=== PATIENT | male | born 1940 | race Caucasian/White ===

== ENCOUNTER 2025-02-01 23:12 | Inpatient (IN) | payer OTHER, SELFPAY ==
[2025-02-01] VITALS (23 sets, daily range): BP systolic 134–203; BP diastolic 63–105; BMI 25.3
[2025-02-01 17:50] LABS: % Basophils 0.2 % (0-2); % Eosinophils 1.9 % (0-6); % Immature Granulocytes 0.4 % (0-0.5); % Lymphocytes 23.1 % (20.5-51.1); % Monocytes 10.8 % (1.7-9.3); % Neutrophils 63.6 % (42.2-75.2); Absolute Eosinophils 0.1 10^3/uL (0-0.7); Absolute Lymphocytes 1.1 10^3/uL (1.2-3.4); Absolute Monocytes 0.5 10^3/uL (0.1-0.6); Hematocrit 39.4 % (39.0-52.0); Hemoglobin 13.3 g/dL (13.0-18.0); Mean Corp Hgb Conc. 33.8 g/dL (33.0-37.0); Mean Corpuscular Volume 94.7 fL (80.0-94.0); Mean Platelet Volume 9.4 fL (7.4-10.4); Nucleated Red Blood Cells % 0 % (-); Platelet Count 150 10^3/uL (130-400); Red Blood Cell Count 4.16 10^6/uL (4.70-6.10); Red Cell Dist. Width 12.8 % (11.5-14.5); White Blood Cell Count 4.6 10^3/uL (4.8-10.8)
[2025-02-01 18:03] LABS: ALT (SGPT) 12 U/L (0-50); AST (SGOT) 22 U/L (17-59); Albumin 3.6 g/dl (3.5-5.0); Alkaline Phosphatase 74 U/L (38-126); Blood Urea Nitrogen 28 mg/dl (9-20); Calcium 8.7 mg/dl (8.4-10.2); Carbon Dioxide 27 mmol/L (22-30); Chloride 107 mmol/L (98-107); Estimated Creatinine Clearance 63 ml/min; Glucose 98 mg/dl (70-99); Potassium 4.4 mmol/L (3.5-5.1); Sodium 141 mmol/L (135-145); Total Bilirubin 0.5 mg/dl (0.2-1.3); Total Protein 5.7 g/dl (6.3-8.2); eGFR > 60.00
--- NOTE | 2025-02-01 19:36 | ED.GENMED ---
History of Present Illness
<Marcela Quintero PA-C - Last Filed: 02/01/25 23:58>
General
Chief Complaint: Musculo-Skeletal Complaint
Source: patient
Exam Limitations: none
Time Seen by Provider: 02/01/25 18:52
Nursing documentation reviewed up to this point in time: agreed with
History of Present Illness
History of Present Illness:
Patient is an 84-year-old male with history hypertension, hyperlipidemia, frontotemporal dementia presenting to the emergency department via EMS for mechanical fall earlier today. History somewhat limited due to patient's history of dementia. He
states that he tripped on something in the kitchen, possibly a rug falling forward landing on the left side. He denies any head strike or loss of continence. He complains of significant pain in his left ankle with any movement. He arrives with
obvious deformity of left ankle and splint in place by EMS.
Patient denies any numbness/tingling in left lower extremity. He denies any neck or back pain. Patient denies any chest pain, shortness of breath, or abdominal pain. This fall was unwitnessed by family as his was in the other room.
Patient's does report that he sustained a fall a few days ago on the bathroom as well. It is not known if he struck his head at that time. She reports that he does have a bruise on his back.
states that patient is intermittently incontinent to urine at his baseline.
Past History
<Marcela Quintero PA-C - Last Filed: 02/01/25 23:58>
Past History
ED Past Medical History: None
ED Past Surgical History: None
Social History
Tobacco: Non-smoker
Alcohol: None
Drug: None
Personal:
Living: with family
Review of Systems
<Marcela Quintero PA-C - Last Filed: 02/01/25 23:58>
Review of Systems
Allergies reviewed?: Yes
All Other Systems: ROS reviewed and negative except as documented in HPI and ROS
Phy Exam
<Marcela Quintero PA-C - Last Filed: 02/01/25 23:58>
Physical Exam
Physical Exam:
Vitals: Hypertensive, otherwise vital signs are stable. Afebrile
General: Patient is in no apparent distress.
Skin: Warm and dry, no rashes or lesions. Healing ecchymoses to left sacral region
Head: Normocephalic, atraumatic
Eyes: Sclera nonicteric. EOMs intact. No nystagmus.
Throat: Protecting airway
Neck: Normal ROM, no cervical spine tenderness, no meningismus
Cardiac: Regular rate and rhythm, no murmurs.
Pulm: No apparent respiratory distress. Lungs clear bilaterally
Abdomen: Abdomen soft and nontender.
Extremities: Obvious lateral rotation and deformity of left ankle. Ankle very unstable. Diffuse tenderness and swelling of left ankle. Normal capillary refill. Palpable left DP pulse. Patient has no tenderness to left hip with out any pain with
left hip range of motion including internal/external rotation. Right lower extremity and bilateral upper extremities atraumatic and nontender with full range of motion.
Neuro: AAOx2 to person and place, not time. No focal deficits.
Psychiatric: Normal affect.
Course
<Marcela Quintero PA-C - Last Filed: 02/01/25 23:58>
Orders/Labs/Results
Orders:
Orders
02/01/25 17:44
Complete Blood Count/With Diff Urgent
Comprehensive Metabolic Panel Urgent
02/01/25 19:34
Cervical Spine wo Contrast CT [CT Cervical Spine W/o Iv Contr] Urgent
Comment:
Reason For Exam: unwitnessed fall
Ankle, left 3 view CR [CR Ankle - Left Min 3 Views ] Urgent
Comment:
Reason For Exam: fall, ankle deformity
02/01/25 19:35
CT Head W/o Iv Contrast Urgent
Comment:
Reason For Exam: unwitnessed fall
Acetaminophen [Tylenol] 650 mg PO NOW STA
02/01/25 20:14
Propofol [Diprivan] 20 ml .ROUTE .STK-MED
02/01/25 20:19
CR Ankle - Left Min 3 Views Urgent
Comment:
Reason For Exam: post reduction
02/01/25 20:29
Propofol [Diprivan] 20 mg IV NOW STA
02/01/25 22:36
Admit/Transfer Patient As Directed
Co-Sign Provider:
Level of Care: Inpatient admission
Assign to:: Medical/Surgical
Physician / Group: Isaias
Diagnosis: L Ankle Fracture
Reason for Hospitalization: L Ankle Fracture
Expected length of stay greater than two midnights?: Yes
ELOS- Estimated Length of Stay in days: 3
I certify the patient meets the requirements for IP care: Yes
PRN Pain Medication Management As Directed
May give lesser potent ordered pain med per pt: Yes
preference::
Protocol:: Medication orders for pain may be administered in a
manner that supports deferring to patient preference
when the pt is:
- Requesting an ordered lesser potent pain medication.
Least to most potent pain medications are defined
as: acetaminophen < NSAID < tramadol < opioids
(morphine, oxycodone, hydromorphone).
- Requesting a lesser dose of the same medication IF
ORDERED.
- Requesting a less intrusive route of administration
if both routes are prescribed by the provider (PO <
IV).
02/01/25 22:38
Code Status As Directed
Resuscitation Status: Full Code
02/01/25 23:00
Flush (0.9% Sodium Chloride) [Flush (Nss)] See Dose Instructions IV PER PROTOCOL
02/01/25 23:24
Ketorolac [Toradol] 10 mg IV Q6HPRN PRN
Polyethylene Glycol Powder [Miralax] 17 grams PO DAILYPRN PRN
Quetiapine Fumarate [Seroquel] 12.5 mg PO Q6HPRN PRN
02/01/25 23:24
Case Management Consult ONCE
Case Management Consult: Discharge Planning
ORTHOPEDIC CONSULT Routine
Consulting Provider: Frederick Dent
Was physician already notified: Yes
Reason for consult: L Ankle Fracture
Activity As Directed
Activity Level: Bedrest
Bladder Scan As Directed
Follow Bladder Retention/Intermittent Cath Algorithm?: Yes
PRN if no void in __ hours: 6
Frequency: Per Retention Algorithm
If Bladder Scan Result >: 400
then:: Straight cath
I/O [Intake/ Output] As Directed
Frequency: Per unit guidelines
Pneumatic Compression Sleeves As Directed
Type: Knee high
Precautions As Directed
Type of Precautions: Other
Comment: Fall Precautions
Straight Cath As Directed
Frequency: Per Retention Algorithm
Additional Instructions: straight cath as needed per acute urinary retention algorithm for 24 hrs
Additional Instructions: for bladder scan greater than 400 mL
Vital Signs As Directed
Frequency: Per unit guidelines
Weight Bearing Status As Directed
Weight bearing to: Left lower extremity
Type: Non Wt. bearing
Oxygen Therapy [O2 Therapy] [RESP] Routine
Titrate/Wean O2 to maintain O2 sat greater than (%): 94
Ot Eval And Treat Routine
PT Consult [Pt Eval And Treat] Routine
Activity Level: Ambulate
With Assistance
DX Deep Vein Thrombosis Video Routine
02/02/25 Breakfast
NPO
Allow oral meds: Yes
Allow clear liquids: Sips of Clears
Basic Metabolic Panel IN AM
Complete Blood Count/No Diff IN AM
02/02/25 08:00
Acetaminophen [Tylenol] 1,000 mg PO TID
Lisinopril [Zestril] 10 mg PO DAILY
Sertraline HCl [Zoloft] 50 mg PO DAILY
02/02/25 22:00
Atorvastatin [Lipitor] 20 mg PO HS
Donepezil HCl [Aricept] 10 mg PO HS
Sennosides [Senokot] 17.2 mg PO HS
Abnormal Lab Results
02/01/25
17:44
WBC 4.6 L 10^3/uL
(4.8-10.8)
RBC 4.16 L 10^6/uL
(4.70-6.10)
MCV 94.7 H fL
(80.0-94.0)
MCH 32.0 H pg
(27.0-31.0)
Absolute Lymphs (auto) 1.1 L 10^3/uL
(1.2-3.4)
Monocytes % 10.8 H %
(1.7-9.3)
BUN 28 H mg/dl
(9-20)
Total Protein 5.7 L g/dl
(6.3-8.2)
02/01/25 17:44
02/01/25 17:44
Vital Signs
Initial and Last Documented VS:
Initial Vital Signs
Temp Pulse Resp BP Pulse Ox
98.4 F 67 20 164/72 97
02/01/25 17:37 02/01/25 17:37 02/01/25 17:37 02/01/25 17:37 02/01/25 17:37
Last Documented Vital Signs
Temp Pulse Resp BP Pulse Ox
98.0 F 76 20 159/83 98
02/01/25 20:48 02/01/25 20:48 02/01/25 20:48 02/01/25 20:48 02/01/25 20:48
<Mesfin Nichols Kalyan, DO - Last Filed: 02/01/25 20:40>
Orders/Labs/Results
Orders:
Orders
02/01/25 17:44
Complete Blood Count/With Diff Urgent
Comprehensive Metabolic Panel Urgent
02/01/25 19:34
Cervical Spine wo Contrast CT [CT Cervical Spine W/o Iv Contr] Urgent
Comment:
Reason For Exam: unwitnessed fall
Ankle, left 3 view CR [CR Ankle - Left Min 3 Views ] Urgent
Comment:
Reason For Exam: fall, ankle deformity
02/01/25 19:35
CT Head W/o Iv Contrast Urgent
Comment:
Reason For Exam: unwitnessed fall
Acetaminophen [Tylenol] 650 mg PO NOW STA
02/01/25 20:14
Propofol [Diprivan] 20 ml .ROUTE .STK-MED
02/01/25 20:19
CR Ankle - Left Min 3 Views Urgent
Comment:
Reason For Exam: post reduction
02/01/25 20:29
Propofol [Diprivan] 20 mg IV NOW STA
02/01/25 22:36
Admit/Transfer Patient As Directed
Co-Sign Provider:
Level of Care: Inpatient admission
Assign to:: Medical/Surgical
Physician / Group: Isaias
Diagnosis: L Ankle Fracture
Reason for Hospitalization: L Ankle Fracture
Expected length of stay greater than two midnights?: Yes
ELOS- Estimated Length of Stay in days: 3
I certify the patient meets the requirements for IP care: Yes
PRN Pain Medication Management As Directed
May give lesser potent ordered pain med per pt: Yes
preference::
Protocol:: Medication orders for pain may be administered in a
manner that supports deferring to patient preference
when the pt is:
- Requesting an ordered lesser potent pain medication.
Least to most potent pain medications are defined
as: acetaminophen < NSAID < tramadol < opioids
(morphine, oxycodone, hydromorphone).
- Requesting a lesser dose of the same medication IF
ORDERED.
- Requesting a less intrusive route of administration
if both routes are prescribed by the provider (PO <
IV).
02/01/25 22:38
Code Status As Directed
Resuscitation Status: Full Code
02/01/25 23:00
Flush (0.9% Sodium Chloride) [Flush (Nss)] See Dose Instructions IV PER PROTOCOL
02/01/25 23:24
Ketorolac [Toradol] 10 mg IV Q6HPRN PRN
Polyethylene Glycol Powder [Miralax] 17 grams PO DAILYPRN PRN
Quetiapine Fumarate [Seroquel] 12.5 mg PO Q6HPRN PRN
02/01/25 23:24
Case Management Consult ONCE
Case Management Consult: Discharge Planning
ORTHOPEDIC CONSULT Routine
Consulting Provider: Frederick Dent
Was physician already notified: Yes
Reason for consult: L Ankle Fracture
Activity As Directed
Activity Level: Bedrest
Bladder Scan As Directed
Follow Bladder Retention/Intermittent Cath Algorithm?: Yes
PRN if no void in __ hours: 6
Frequency: Per Retention Algorithm
If Bladder Scan Result >: 400
then:: Straight cath
I/O [Intake/ Output] As Directed
Frequency: Per unit guidelines
Pneumatic Compression Sleeves As Directed
Type: Knee high
Precautions As Directed
Type of Precautions: Other
Comment: Fall Precautions
Straight Cath As Directed
Frequency: Per Retention Algorithm
Additional Instructions: straight cath as needed per acute urinary retention algorithm for 24 hrs
Additional Instructions: for bladder scan greater than 400 mL
Vital Signs As Directed
Frequency: Per unit guidelines
Weight Bearing Status As Directed
Weight bearing to: Left lower extremity
Type: Non Wt. bearing
Oxygen Therapy [O2 Therapy] [RESP] Routine
Titrate/Wean O2 to maintain O2 sat greater than (%): 94
Ot Eval And Treat Routine
PT Consult [Pt Eval And Treat] Routine
Activity Level: Ambulate
With Assistance
DX Deep Vein Thrombosis Video Routine
02/02/25 Breakfast
NPO
Allow oral meds: Yes
Allow clear liquids: Sips of Clears
Basic Metabolic Panel IN AM
Complete Blood Count/No Diff IN AM
02/02/25 08:00
Acetaminophen [Tylenol] 1,000 mg PO TID
Lisinopril [Zestril] 10 mg PO DAILY
Sertraline HCl [Zoloft] 50 mg PO DAILY
02/02/25 22:00
Atorvastatin [Lipitor] 20 mg PO HS
Donepezil HCl [Aricept] 10 mg PO HS
Sennosides [Senokot] 17.2 mg PO HS
Abnormal Lab Results
02/01/25
17:44
WBC 4.6 L 10^3/uL
(4.8-10.8)
RBC 4.16 L 10^6/uL
(4.70-6.10)
MCV 94.7 H fL
(80.0-94.0)
MCH 32.0 H pg
(27.0-31.0)
Absolute Lymphs (auto) 1.1 L 10^3/uL
(1.2-3.4)
Monocytes % 10.8 H %
(1.7-9.3)
BUN 28 H mg/dl
(9-20)
Total Protein 5.7 L g/dl
(6.3-8.2)
02/01/25 17:44
02/01/25 17:44
Vital Signs
Initial and Last Documented VS:
Initial Vital Signs
Temp Pulse Resp BP Pulse Ox
98.4 F 67 20 164/72 97
02/01/25 17:37 02/01/25 17:37 02/01/25 17:37 02/01/25 17:37 02/01/25 17:37
Last Documented Vital Signs
Temp Pulse Resp BP Pulse Ox
98.0 F 76 20 159/83 98
02/01/25 20:48 02/01/25 20:48 02/01/25 20:48 02/01/25 20:48 02/01/25 20:48
Procedures
<Marcela Quintero PA-C - Last Filed: 02/01/25 23:58>
Joint/Fracture Reduction
Left Ankle:
Indication for procedure:: Ankle fracture and dislocation
Procedure completed by: Marcela Quintero PA-C
Consent form signed: Yes
Joint reduced: with anesthesia sedation
Anesthesia/sedation: Moderate sedation
Injury was: closed
Further treatement: needs further treatment
Post reduction exam: stable
Capillary Refill: normal
Normal distal neurovascular exam?: Yes
<Mesfin Biggs DO - Last Filed: 02/01/25 20:40>
Moderate Sedation
ASA Risk Score: Class III
Chart and allergies reviewed: Yes
Consent for anesthesia obtained: Yes
Time out completed (validating right patient & procedure): Yes
Moderate Sedation Start Time(when first medication is given): 20:22
History of difficult intubation: No
Airway free of obstruction: Yes
Patient has a gag reflex: Yes
Patient is able to open mouth: Yes
Patient has no dentures: Yes
Patient has no loose teeth: Yes
Medication administered by Provider during Moderate Sedation: IV Propofol (mg)
Total dose administered: 20
Time drug administered: 20:22
Moderate Sedation Procedure End Time: 20:33
<Marcela Quintero PA-C - Last Filed: 02/01/25 23:58>
MDM/Problems Addressed
Differential Diagnosis Includes:
Not limited to: Ankle fracture, ankle dislocation, hip fracture fracture, etc.
MDM/Problems Addressed:
84-year-old male with history as documented presenting with left ankle pain and deformity following mechanical fall at home. Unknown head strike or LOC. No thinners. Patient mildly hypertensive on arrival, otherwise stable vital signs. Physical
exam as above. Patient has an obvious deformity of the left ankle with significant tenderness and instability of joint. No evidence of other traumatic injuries. No evidence of head or neck injury. However�given somewhat uncertainty surrounding
fall�will obtain head CT/cervical spine CT. Will check x-ray left ankle and left hip. Labs were sent in triage without any clinically significant abnormalities.
Update: Ankle x-ray reviewed by me which shows bimalleolar fracture and dislocation of left ankle. Written consent obtained by patient's . Left ankle reduction performed under moderate sedation with attending physician. Ankle successfully
reduced in ED and patient placed in sugar-tong/posterior leg splint. Patient tolerated procedure well. Reduction confirmed with postreduction x-ray.
Update: Patient initially declined x-ray of left hip. He is able to fully range left hip and has no bony tenderness. Will hold off on hip x-ray at this time. CT head/cervical spine without acute abnormalities. Patient will require admission to
hospital for PT/case management consult and likely acute rehab placement. Case was discussed with orthopedics who will follow inpatient. This will require operative management. Patient excepted to hospitalist service in stable condition.
Chronic conditions affecting care:
Dementia, hypertension
Acute Exacerbation and/or Progression of Chronic Illness:
Acutely hypertensive
<Marcela Quintero PA-C - Last Filed: 02/01/25 23:58>
*Radiology
Radiology exam reviewed: preliminary read by ED provider (Ankle x-ray reviewed by me-bimalleolar fracture with dislocation) and radiology read reviewed
*Pulse Oximetry
Patient hypoxic: no
*EKG
Interpreted by ED Provider?: NA
*Survey Data Technician Interpretation
Rate: normal
Interpretation: normal
Heart Rate: 64
Rhythm: sinus
*Critical Care Note
Total Time (30-74mins, 75-104mins- exclusive of procedures): Not Applicable
<Macrela Quintero PA-C - Last Filed: 02/01/25 23:58>
Patient Management
Discussion with other providers: Hospitalist and Station Repairer (Case discussed with orthopedics)
Escalation/DeEscalation of care consider admission/obs:
Admit for PT/CM and orthopedic consult
ED Attending Note
<Marcela Quintero PA-C - Last Filed: 02/01/25 23:58>
-
Portions of this chart may have been created with voice recognition software.� Occasional wrong word or��sound alike� substitutions may have occurred due to the inherent limitations of voice recognition software.
<Mesfin Biggs DO - Last Filed: 02/01/25 20:40>
ED Attending Note
Patient seen and examined by attending physician: Yes
I performed the substantive portion of visit, reviewed & personally made and approve the management plan that is documented in note by myself or CINDY.: Yes
ED Attending Note:
I evaluated patient at bedside and assisted with sedation and reduction
Discharge Plan
Departure
Patient Disposition: Admit
Date of Disposition: 02/01/25
Time of Disposition: 22:07
Presentation/result/management discussed w/ accepting MD/DO: Hospitalist
Discharge Problem:
Displaced bimalleolar fracture of left ankle
Interventions
Interventions:
*Risk Screen - Suicide Last Done: 02/01/25 17:37
*General Assessment Last Done: 02/01/25 17:37
*Neglect/Abuse Screening Last Done: 02/01/25 17:37
*ED- Fall Risk Assessment Last Done: 02/01/25 17:37
*ED COVID-19 Vaccine History Last Done: 02/01/25 17:37
ED-Musculoskeletal Assessment Last Done: 02/01/25 17:37
[2025-02-01] MEDS: DIPRIVAN 20 MG IV (20:22)
--- NOTE | 2025-02-01 22:46 | HPS.HSE ---
Family Physician
-
Family Physician: Doc Madera
Chief Complaint
-
Fall at Home, L Ankle Pain
History of Present Illness
Patient is an 84y M with PMH significant for senile dementia who presents to ED for evaluation of recent falls / L ankle pain. History obtained from patient and family at the bedside. Patient is confused as per baseline and has difficulty
recalling details of his recent falls, etc. Patient had a fall at home in the bathroom 2 days ago. Fall was unwitnessed. Patient suffered no obvious injury at that time. Today he had another unwitnessed fall. he states that his 'foot got
caught' though further details are unclear. Patient had pain in the L ankle with evident deformity after the fall. He was brought to the ED for further evaluation and treatment.
X-rays confirmed tri-malleolar fracture of the L ankle. Patient underwent closed reduction and splinting in the ED with good radiographic results.
states that patient has had recent issues with urinary and fecal urgency and frequency.
He does not have a prior history of falling, gait issues.
No other recent focal complaints.
Medical History
Past Medical History
Past Medical History: Reports Other
Additional Past Medical History:
Frontotemporal Dementia
Benign Hypertension
Past Surgical History: Reports None
Social History
Tobacco: Non-smoker
Alcohol: Occasional
Drug: None
Personal:
Living: With Family
Family History
Family History: Not pertinent
Allergies / Home Medications
Allergies reflects when Allergies were last updated in [facility].
Home Medications with original date entered in [facility]
Allergy/Medication List:
Allergies
Allergy/AdvReac Type Severity Reaction Status Date / Time
No Known Allergies Allergy Verified 03/12/17 10:20
Home Medications
donepezil 10 mg tablet 10 mg PO HS 02/01/25
lisinopril 10 mg tablet 10 mg PO DAILY 02/01/25
sertraline 50 mg tablet 50 mg PO DAILY 02/01/25
simvastatin 40 mg tablet 40 mg PO HS 02/01/25
Review of Systems
-
History Source: Patient and Family
A 12 point ROS was completed and negative except as noted: Yes
Constitutional: Reports Fatigue; Denies Fever or Chills
Respiratory: Denies Cough or Trouble Breathing
Cardiac: Denies Chest Pain or Palpitations
Abdomen/GI: Reports Other (Fecal urgency); Denies Abdominal Pain, Nausea, Vomiting or Diarrhea
: Reports Frequency and Urgency; Denies Dysuria
Musculoskeletal: Reports Joint Pain
Neurological: Denies Headache
Psych: Reports Dementia
Physical Exam
Vital Signs
Vital Signs
Temp Pulse Resp BP Pulse Ox
98.0 F 76 20 159/83 98
02/01/25 20:48 02/01/25 20:48 02/01/25 20:48 02/01/25 20:48 02/01/25 20:48
Physical Exam
General: Other (84y M in no acute distress. )
HEENT: Moist mucous membranes and PERRLA
Respiratory: Clear; No Wheezes, Rales or Rhonchi
Cardiac: S1/S2 and Regular Rhythm; No Murmur
GI: Soft, Non Tender, Non Distended and Normal Bowel Sounds
Genito-urinary: No costovertebral tender
Musculoskeletal: No Clubbing, No Cyanosis and Other (L lower extremity in splint / GUIDO wrap.)
Neuro: Awake and Alert; No Oriented
Laboratory Results
-
02/01/25 17:44
02/01/25 17:44
Laboratory Results
Total Bilirubin 0.5 mg/dl (0.2-1.3) 02/01/25 17:44
AST 22 U/L (17-59) 02/01/25 17:44
ALT 12 U/L (0-50) 02/01/25 17:44
Alkaline Phosphatase 74 U/L (38-126) 02/01/25 17:44
Impression/Plan
-
A/P: Patient is an 84y M with PMH significant for dementia who presents to ED for evaluation of recent falls at home and L ankle pain.
Left Ankle Fracture
- Admit for further evaluation and treatment.
- Reduced and splinted in the ED.
- Supportive care, pain control, NWB, etc.
- Ortho evaluation for additional recommendations.
- Strict fall precautions in this 84y M with dementia to avoid weight bearing, getting OOB, etc unassisted.
Fall at Home
- Unclear etiology of falls.
- Potentially represents progression of dementia; however, family does not recent urinary symptoms.
- Check UA for evidence of infection.
- Hold abx pending these results.
- PT / OT evaluations.
- Follow for any new / worsening symptoms.
Benign Hypertension
- Stable. Continue usual lisinopril.
Frontotemporal Dementia
- Patient with memory impairment at baseline. Mildly anxious / agitated in the ED.
- Concern for mobility / weight bearing due to disorientation as noted above - strict fall precautions.
- Continue usual Aricept, sertraline, etc.
- Seroquel PRN for agitation.
DVT Prophylaxis: SCDs
Code Status: Full
[2025-02-02] VITALS (17 sets, daily range): BP systolic 114–145; BP diastolic 0–95
[2025-02-02] MEDS: ARICEPT 10 MG PO ×2 (01:25→21:03)
[2025-02-02] MEDS: SENOKOT 17.2 MG PO ×2 (01:25→21:03)
[2025-02-02] MEDS: LIPITOR 20 MG PO ×2 (01:25→21:03)
[2025-02-02] MEDS: TYLENOL 1000 MG PO ×3 (01:26→21:05)
[2025-02-02 06:22] LABS: Hematocrit 40.3 % (39.0-52.0); Hemoglobin 13.7 g/dL (13.0-18.0); Mean Corpuscular Hgb 31.9 pg (27.0-31.0); Mean Corpuscular Volume 93.7 fL (80.0-94.0); Mean Platelet Volume 9.3 fL (7.4-10.4); Platelet Count 151 10^3/uL (130-400); Red Cell Dist. Width 12.9 % (11.5-14.5); White Blood Cell Count 5.3 10^3/uL (4.8-10.8)
[2025-02-02 06:43] LABS: Blood Urea Nitrogen 23 mg/dl (9-20); Calcium 8.6 mg/dl (8.4-10.2); Carbon Dioxide 27 mmol/L (22-30); Chloride 109 mmol/L (98-107); Estimated Creatinine Clearance 70 ml/min; Glucose 96 mg/dl (70-99); Potassium 3.8 mmol/L (3.5-5.1); Sodium 140 mmol/L (135-145); eGFR > 60.00
[2025-02-02] MEDS: ZESTRIL 10 MG PO (07:55)
[2025-02-02] MEDS: ZOLOFT 50 MG PO (07:57)
--- NOTE | 2025-02-02 08:40 | CON.ORTHO ---
Consultation
-
Date/Time Consultation Requested: 02/01/2025; time unknown
Date/Time Consultation Performed: 02/02/2025; 0700
Requesting Provider: unknown
Performing Provider: Rosa Isela Saldivar PA-C
Reason for Consultation: Left ankle fracture dislocation
Consultation - Orthopedics
History
Mr. Painter is an 84y M with PMH significant for senile dementia seen today for his left ankle. History was obtained from his and son who are at the bedside. They report he has taken several falls recently, but fell again last night. They
noticed a deformity about his ankle which prompted them to be seen at ED. X-rays in the ED revealed a fracture dislocation of his left ankle. This was successfully reduced in the ED, and he was placed in a splint. He is resting comfortably in bed
this morning and denies any pain at present.
He lives at home with his , and typically ambulates with the assistance of a cane. He has not undergone orthopedic surgery in the past. He has no known history of difficulty with anesthesia. They deny PMH of DVT, CVA, KS or DM.
Allergies / Home Medications
Allergy/AdvReac Type Severity Reaction Status Date / Time
No Known Allergies Allergy Verified 03/12/17 10:20
�Medication �Instructions �Recorded
donepezil 10 mg tablet 10 mg PO HS 02/01/25
lisinopril 10 mg tablet 10 mg PO DAILY 02/01/25
sertraline 50 mg tablet 50 mg PO DAILY 02/01/25
simvastatin 40 mg tablet 40 mg PO HS 02/01/25
vitamin B complex 1 tab PO DAILY 02/02/25
Vital Signs / Lab Results
Temp Pulse Resp BP Pulse Ox
98.0 F 70 36 138/77 97
02/01/25 20:48 02/02/25 07:55 02/02/25 00:27 02/02/25 07:55 02/02/25 01:50
02/02/25 06:05
02/02/25 06:05
Pre-reduction XR Left Ankle IMPRESSION:
1. Acute lateral dislocation of the talus.
2. Acute displaced fracture of the medial malleolus.
3. Acute displaced fracture of the distal fibula.
4. Severe peripheral arterial calcific atherosclerotic disease.
Post-reduction XR Left Ankle IMPRESSION:
Closed reduction of the previously visualized acute left ankle fracture-dislocation.
Directed exam of the left lower extremity reveals splint in place. Good color and warmth of toes. Patient able to wiggle toes. Sensation intact to light touch above and below splint.
Assessment / Plan
Left bimalleolar ankle fracture dislocation s/p closed reduction
--Unfortunately, Stalin sustained a bimalleolar ankle fracture in his fall. Thankfully, the dislocation was successfully reduced in the emergency department. Given the unstable nature of this injury, I recommend proceeding with open reduction
internal fixation of his ankle. The risks, benefits, alternatives, recovery process and potential complications were discussed in detail. All questions were answered. Patient and his family would like to proceed with surgical intervention of his
fracture. Surgical and blood consents are signed and scanned into patient chart. Paper copy at OR desk. Plan for OR today under the direction of Dr. Leggett and Dr. Durbin.
--Maintain splint until surgery. NWB to LLE until surgery.
--NPO until surgery.
--Pain control prn.
--Orthopedics/podiatry will continue to follow along.
--- NOTE | 2025-02-02 08:57 | W.PN.HOSP.TC ---
Today's Communication/Plan
-
NPO for OR
IV fluids at the maintenance rate.
Assessment / Plan
Assessment / Plan
Impression
Left ankle fracture secondary to mechanical fall
Other conditions
Advanced frontotemporal dementia.
Benign hypertension
Plan
Status post mechanical fall with acute dislocated fracture of the medial malleolus and acute lateral dislocation of the talus
Status post successful reduction of dislocation in ED.
Given instability of fracture patient will required ORIF.
Orthopedic input appreciated.
Patient with no prior history of cardiovascular disorders.
No uncontrolled hypertension.
Additional workup relevant for normal electrolytes and renal function.
No history of FTD. CT scan with no acute findings evident for multiple chronic lacunar infarcts.
Pending ECG, patient has no prohibitive risk factors to proceed for surgical intervention. No additional preoperative test required.
Plan for postoperative care including DVT prophylaxis, physical therapy evaluation and possible placement to senior care facility
Fall at Home
- Unclear etiology of falls.
- Potentially represents progression of dementia; however, family does not recent urinary symptoms.
- Check UA for evidence of infection.
- Hold abx pending these results.
- PT / OT evaluations.
- Follow for any new / worsening symptoms.
Benign Hypertension
- Stable. Continue usual lisinopril.
Frontotemporal Dementia
- Patient with memory impairment at baseline. Mildly anxious / agitated in the ED.
- Concern for mobility / weight bearing due to disorientation as noted above - strict fall precautions.
- Continue usual Aricept, sertraline, etc.
- Seroquel PRN for agitation.
DVT Prophylaxis: SCDs
Anticipated Discharge: 24 - 48 hours
Subjective/Interval History
-
Date of Service: February 02, 2025
Objective Data
-
Labs:
Laboratory Results
02/02/25
06:05
WBC 5.3
Hgb 13.7
Hct 40.3
Plt Count 151
Sodium 140
Potassium 3.8
Chloride 109 H
Carbon Dioxide 27
BUN 23 H
Creatinine 0.9
Glucose 96
Calcium 8.6
Vital Signs:
Vital Signs
Temp Pulse Resp BP Pulse Ox
98.0 F 70 36 138/77 97
02/01/25 20:48 02/02/25 07:55 02/02/25 00:27 02/02/25 07:55 02/02/25 01:50
I&O
02/01/25 02/02/25 02/03/25
06:59 06:59 06:59
Output Total 300 / 300
Balance -300 / -300
Physical Exam
-
General: Well Developed and No Apparent Distress
HEENT: Normocephalic, Atraumatic and Moist Mucous Membranes
Respiratory: Clear to Auscultation
Cardiac: Regular Rhythm and S1/S2; Negative Murmur, Rub or Gallop
GI: Soft, Nontender, Nondistended and Normal Bowel Sounds; Negative Organomegaly
Rectal: Deferred by Provider
Musculoskeletal: No Clubbing, No Cyanosis and No Edema
Skin: Negative Rash
Neuro: Awake, Alert, Oriented (to name only) and Nonfocal/Grossly Intact
[2025-02-02] MEDS: 0.45%NACL 1000 IV (09:50)
--- NOTE | 2025-02-02 10:44 | CM ---
Met with patient's and grandson at bedside in the ED
Pharmacy: [facility] @ [address] [place] [address]
Patient lives in a multilevel home with his /primary caregiver; 1 step to enter; chair lift to 2nd floor bedroom and bath
PLOF: reported that patient is confused at baseline; ambulated with a cane; needed assistance w/ personal care; was able to toilet self
NO history of SNF or Home Health utilization
is agreeable with going to SNF; list of facilities provided; she and grandson will investigate and identify site preferences tomorrow
Patient is going to OR for procedure today' anticipate that patient will need SNF when stable
Plan: discharge to SNF pending bed availability and Authorization approval; CM will follow up with tomorrow to obtain site preferences and submit referral
--- NOTE | 2025-02-02 13:09 | PTCARENOTE ---
pt brought to OR
--- NOTE | 2025-02-02 17:10 | W.PN.SURGUPD ---
Surgical Update
Surgical Update
84 yo M s/p L ankle ORIF
-Posterior splint to remain C/D/I
-Strict NWB to LLE
-PT/OT, possible need for DC to SNF
-Ancef for 24 hours
--- NOTE | 2025-02-02 18:05 | PTCARENOTE ---
pt transferred from pacu awake and alert oriented x2. lungs diminished B/L on RA. abd soft NT. soft cast LLE, NWB. brisk cap refill b/l. skin otherwise intact. CB in reach- pt instructed to use.
[2025-02-02] MEDS: TYLENOL PO (18:07)
[2025-02-02] MEDS: ANCEF 10 IV (20:55)
[2025-02-03] MEDS: ANCEF 10 IV ×2 (05:27→13:10)
[2025-02-03 07:25] LABS: % Basophils 0.2 % (0-2); % Immature Granulocytes 0.2 % (0-0.5); % Monocytes 14.2 % (1.7-9.3); % Neutrophils 71.4 % (42.2-75.2); Absolute Eosinophils 0.1 10^3/uL (0-0.7); Absolute Lymphocytes 0.8 10^3/uL (1.2-3.4); Absolute Monocytes 0.8 10^3/uL (0.1-0.6); Absolute Neutrophils 4.2 10^3/uL (1.4-6.5); Hematocrit 35.8 % (39.0-52.0); Hemoglobin 11.9 g/dL (13.0-18.0); Mean Corp Hgb Conc. 33.2 g/dL (33.0-37.0); Mean Corpuscular Hgb 31.9 pg (27.0-31.0); Nucleated Red Blood Cells % 0 % (-); Platelet Count 154 10^3/uL (130-400); Red Blood Cell Count 3.73 10^6/uL (4.70-6.10); Red Cell Dist. Width 13.2 % (11.5-14.5); White Blood Cell Count 5.9 10^3/uL (4.8-10.8)
[2025-02-03 07:27] VITALS: BP 125/62
[2025-02-03 07:57] LABS: Blood Urea Nitrogen 21 mg/dl (9-20); Calcium 7.6 mg/dl (8.4-10.2); Carbon Dioxide 29 mmol/L (22-30); Chloride 107 mmol/L (98-107); Estimated Creatinine Clearance 63 ml/min; Glucose 98 mg/dl (70-99); Potassium 3.9 mmol/L (3.5-5.1); Sodium 139 mmol/L (135-145); eGFR > 60.00
[2025-02-03] MEDS: ZESTRIL 10 MG PO (08:07)
[2025-02-03] MEDS: TYLENOL 1000 MG PO ×3 (08:07→21:04)
[2025-02-03] MEDS: ZOLOFT 50 MG PO (08:07)
[2025-02-03 10:39] VITALS: BP 126/57; PULSE 84; O2SAT 95
[2025-02-03 10:58] VITALS: BP 126/57; PULSE 82; O2SAT 94
--- NOTE | 2025-02-03 11:26 | CM ---
Reviewed the chart notes and spoke with the patient and his spouse at the bedside. Patient's spouse provided names for SNFs for short term. Referrals with [facility] sent via [facility]. CM continues to be available to patient/family and is monitoring
medical plan for needs at discharge.
Plan: Discharge to SNF/rehab once medically stable, bed secured and prior auth obtained.
--- NOTE | 2025-02-03 15:04 | W.PN.HOSP.TC ---
Today's Communication/Plan
-
Postoperative care
PT.
Placement to rehab
Assessment / Plan
Assessment / Plan
Impression
Left ankle fracture secondary to mechanical fall
Other conditions
Advanced frontotemporal dementia.
Benign hypertension
Plan
Status post mechanical fall with acute dislocated fracture of the medial malleolus and acute lateral dislocation of the talus
Status post successful reduction of dislocation in ED.
Given instability of fracture patient will required ORIF.
Status post left ankle ORIF on 02/02.
Postoperative antibiotics for 24 hours as recommended
DVT prophylaxis per
Physical therapy assessment
Fall at Home
- Unclear etiology of falls.
- Potentially represents progression of dementia; however, family does not recent urinary symptoms.
- Check UA for evidence of infection.
- Hold abx pending these results.
- PT / OT evaluations.
- Follow for any new / worsening symptoms.
Benign Hypertension
- Stable. Continue usual lisinopril.
Frontotemporal Dementia
- Patient with memory impairment at baseline. Mildly anxious / agitated in the ED.
- Concern for mobility / weight bearing due to disorientation as noted above - strict fall precautions.
- Continue usual Aricept, sertraline, etc.
- Seroquel PRN for agitation.
DVT Prophylaxis: SCDs
Anticipated Discharge: 24 - 48 hours
Subjective/Interval History
-
Date of Service: February 03, 2025
Objective Data
-
Labs:
Laboratory Results
02/03/25
05:43
WBC 5.9
Hgb 11.9 L
Hct 35.8 L
Plt Count 154
Sodium 139
Potassium 3.9
Chloride 107
Carbon Dioxide 29
BUN 21 H
Creatinine 1.0
Glucose 98
Calcium 7.6 L
Vital Signs:
Vital Signs
Temp Pulse Resp BP Pulse Ox
98.1 F 83 16 125/62 94
02/03/25 07:27 02/03/25 07:27 02/03/25 07:27 02/03/25 08:07 02/03/25 07:27
I&O
02/02/25 02/03/25 02/04/25
06:59 06:59 06:59
Intake Total 240 / 240
Output Total 300 / 300 50 / 50
Balance -300 / -300 190 / 190
Physical Exam
-
General: Well Developed and No Apparent Distress
HEENT: Normocephalic, Atraumatic and Moist Mucous Membranes
Respiratory: Clear to Auscultation
Cardiac: Regular Rhythm and S1/S2; Negative Murmur, Rub or Gallop
GI: Soft, Nontender, Nondistended and Normal Bowel Sounds; Negative Organomegaly
Rectal: Deferred by Provider
Musculoskeletal: No Clubbing, No Cyanosis and No Edema
Skin: Negative Rash
Neuro: Awake, Alert, Oriented (to name only) and Nonfocal/Grossly Intact
[2025-02-03 15:14] VITALS: BP 109/52
--- NOTE | 2025-02-03 20:00 | PTCARENOTE ---
Resumed care of pt laying in bed AAOx1 with at bedside. Pt pleasantly confused and making jokes. Pt denies any complaints of pain at this time. Left lower leg splint in place. Pt NWB on left. Heels elevated on pillow. POX 96% on RA. Lungs dec/
course with frequent moist cough, pt swallowing sputum when coughed up. Pt using urinal when needed, with frequent spillage. Bed alarm in place for pt safety. Call kramer in reach. Close monitoring maintained.
--- NOTE | 2025-02-03 20:55 | W.PN.SURGUPD ---
Surgical Update
Surgical Update
84 yo M s/p L ankle ORIF (02/02/2025)
-Patient seen and evaluated at bedside. Posterior splint remains C/D/I
-Pain well controlled, toes pink and well perfused
-Strict NWB to LLE, appreciate PT/OT
-To follow up with myself at [facility] 2 weeks following discharge
[2025-02-03] MEDS: LIPITOR 20 MG PO (21:04)
[2025-02-03] MEDS: ARICEPT 10 MG PO (21:04)
[2025-02-03] MEDS: SENOKOT 17.2 MG PO (21:05)
[2025-02-03 23:25] VITALS: BP 159/72
--- NOTE | 2025-02-04 03:26 | PTCARENOTE ---
Pt with increased coughing, pt sounding like he cant clear his airway. Oral suction provided, thick white sputum suctioned from airway. POX 78% on RA. Oxygen applied and titrated up until POC 92%. [address] initially[address] Once pt recovered and
no longer coughing able to wean oxygen down to 4LO2 NC. Pt continues to have occasional moist junky cough. Bryon WRIGHT notified. Pt continues to be pleasantly confused and making jokes. Does not appear to be in any type of resp distress. Tolerated
oral suction without issues. Pt now resting. Will continue to monitor.
[2025-02-04 07:55] VITALS: BP 149/75
--- NOTE | 2025-02-04 08:35 | CM ---
Addendum entered by Martha Bartlett RN 02/04/25 14:46:
CM spoke with the patient's son at the bedside. Patient son insistent on the patient going to a facility that has side rails. Explained to the patient that in the state [facility] side rails are not permitted for general population in a SNF. Side
rails on occasion are permitted with a need for details documentation as to the rails being needed for bed mobility, not to prevent someone from getting out of the bed. Son spoke with [facility] director account management at [facility], she explained the same. He
was not pleased with this outcome and questioned this CM on what type of beds does this hospital have. CM explained the beds are constant in each unit and do have four side rails per bed which is permitted in a hospital setting. The son expressed
strong displeasure with the situation of the bed rails. CM received call from [facility] that they were declining the patient as this time. [facility] was willing to address situation at a later date. [facility] filled the bed with a [employer].
CM received call from the patient's daughter who resides in [place] and discussed above. She will be flying to [place] to assist the patient's spouse, her mother, with placing the patient. Discussed with daughter that her son toured [facility] yesterday and
was provided a packet which contained a financial application. Suggested that they complete over the weekend and submit back to [facility] on Friday.
[facility] has no beds and [facility] have no beds until maybe mid-week. CM to speak with spouse about other potential SNF/rehabs.
Addendum entered by Martha Bartlett RN 02/04/25 09:40:
Auth obtained; 02/04-02/08; call clinicals to [phone]; auth # [id number]
Plan: Discharge to [facility].
Call report to: [phone]
Fax report to: [phone]
Medical necessity and transport forms on chart.
Original Note:
Reviewed the chart notes and spoke with the patient's spouse via telephone. IMM reviewed. Patient accepted at [facility]. Patient spouse in agreement with [facility]. Auth to be initiated through [facility]. CM continues to be available to
patient/family and is monitoring medical plan for needs at discharge.
Plan: Discharge to [facility] once auth obtained.
--- NOTE | 2025-02-04 10:02 | W.DS.TRANS ---
DC Summary - Director Of Sleep
-
Discharge Instructions:
Discharge Diagnosis/Procedures Impression
Left ankle fracture secondary to mechanical fall
status post ORIF
Other conditions
Advanced frontotemporal dementia.
Benign hypertension
Diet As tolerated
Instructions:
Stand-Alone Forms:
Changes to Home Medications: No
Discharge Medications:
DC Medications w/original date entered in [employer]
donepezil 10 mg tablet 10 mg PO HS 02/01/25
lisinopril 10 mg tablet 10 mg PO DAILY 02/01/25
sertraline 50 mg tablet 50 mg PO DAILY 02/01/25
simvastatin 40 mg tablet 40 mg PO HS 02/01/25
vitamin B complex 1 tab PO DAILY 02/02/25
Home Medication Changes
Pending Results: No
[2025-02-04] MEDS: ZOLOFT 50 MG PO (10:22)
[2025-02-04] MEDS: ZESTRIL 10 MG PO (10:22)
[2025-02-04] MEDS: TYLENOL 1000 MG PO ×3 (10:22→21:07)
[2025-02-04] MEDS: TORADOL 10 MG IV (10:26)
[2025-02-04 15:00] VITALS: BP 145/61; PULSE 72; O2SAT 96
--- NOTE | 2025-02-04 15:00 | PTCARENOTE ---
Patient oriented to self and place (sometimes). Patient makes no attempt to get OOB with out calling for assist, bed alarm in place. Patient resting comfortably in chair, spouse at bedside. Patient has no c/o pain at present. LLE elevated on a
pillow, ice applied.
[2025-02-04 15:30] VITALS: BP 138/70
--- NOTE | 2025-02-04 15:57 | W.PN.HOSP.TC ---
Today's Communication/Plan
-
Doing well postoperatively and medically optimized for discharge.
Ongoing disposition efforts Home versus rehab.
Assessment / Plan
Assessment / Plan
Impression
Left ankle fracture secondary to mechanical fall
Other conditions
Advanced frontotemporal dementia.
Benign hypertension
Plan
Status post mechanical fall with acute dislocated fracture of the medial malleolus and acute lateral dislocation of the talus
Status post successful reduction of dislocation in ED.
Given instability of fracture patient will required ORIF.
Status post left ankle ORIF on 02/02.
Postoperative antibiotics for 24 hours as recommended
DVT prophylaxis per
Physical therapy assessment
Fall at Home
- Unclear etiology of falls.
- Potentially represents progression of dementia; however, family does not recent urinary symptoms.
- Check UA for evidence of infection.
- Hold abx pending these results.
- PT / OT evaluations.
- Follow for any new / worsening symptoms.
Benign Hypertension
- Stable. Continue usual lisinopril.
Frontotemporal Dementia
- Patient with memory impairment at baseline. Mildly anxious / agitated in the ED.
- Concern for mobility / weight bearing due to disorientation as noted above - strict fall precautions.
- Continue usual Aricept, sertraline, etc.
- Seroquel PRN for agitation.
DVT Prophylaxis: SCDs
Anticipated Discharge: 24 - 48 hours
Subjective/Interval History
-
Date of Service: February 04, 2025
Objective Data
-
Vital Signs:
Vital Signs
Temp Pulse Resp BP Pulse Ox
98.2 F 88 16 138/70 97
02/04/25 15:30 02/04/25 15:30 02/04/25 15:30 02/04/25 15:30 02/04/25 15:30
I&O
02/03/25 02/04/2525
06:59 06:59 06:59
Intake Total 240 / 240 1000 / 1000 120 / 120
Output Total 50 / 50 100 / 100
Balance 190 / 190 900 / 900 120 / 120
Physical Exam
-
General: Well Developed and No Apparent Distress
HEENT: Normocephalic, Atraumatic and Moist Mucous Membranes
Respiratory: Clear to Auscultation
Cardiac: Regular Rhythm and S1/S2; Negative Murmur, Rub or Gallop
GI: Soft, Nontender, Nondistended and Normal Bowel Sounds; Negative Organomegaly
Rectal: Deferred by Provider
Musculoskeletal: No Clubbing, No Cyanosis and No Edema
Skin: Negative Rash
Neuro: Awake, Alert, Oriented (to name only) and Nonfocal/Grossly Intact
[2025-02-04] MEDS: ARICEPT 10 MG PO (21:06)
[2025-02-04] MEDS: LIPITOR 20 MG PO (21:06)
[2025-02-04] MEDS: SENOKOT 17.2 MG PO (21:07)
[2025-02-04 23:50] VITALS: BP 128/71
[2025-02-05 08:00] VITALS: BP 133/78
[2025-02-05] MEDS: TYLENOL 1000 MG PO ×3 (08:37→22:33)
[2025-02-05] MEDS: ZOLOFT 50 MG PO (08:37)
[2025-02-05] MEDS: ZESTRIL 10 MG PO (08:37)
--- NOTE | 2025-02-05 12:09 | W.PN.HOSP.TC ---
Today's Communication/Plan
-
see A/P
Assessment / Plan
Assessment / Plan
Impression
Left ankle fracture secondary to mechanical fall
Other conditions
Advanced frontotemporal dementia.
Benign hypertension
Plan
Status post mechanical fall with acute dislocated fracture of the medial malleolus and acute lateral dislocation of the talus
Status post successful reduction of dislocation in ED.
Given instability of fracture patient will required ORIF. Status post left ankle ORIF on 02/02.
Postoperative antibiotics for 24 hours as recommended
DVT prophylaxis with Lovenox SQ per ortho
Physical therapy assessment
Fall at Home
- Unclear etiology of falls.
- Potentially represents progression of dementia; however, family does note recent urinary symptoms.
- PT / OT evaluations.
- Follow for any new / worsening symptoms.
Benign Hypertension
- Stable. Continue usual lisinopril.
Frontotemporal Dementia
- Patient with memory impairment at baseline. Mildly anxious / agitated in the ED.
- Concern for mobility / weight bearing due to disorientation as noted above - strict fall precautions.
- Continue usual Aricept, sertraline, etc.
- Seroquel PRN for agitation.
DVT Prophylaxis: DVT prophylaxis with Lovenox SQ per ortho
Dispo: SNF
DW Ortho Dr. Leggett
DW son at bedside
Anticipated Discharge: 24 - 48 hours
Subjective/Interval History
-
Date of Service: February 05, 2025
Objective Data
-
Vital Signs:
Vital Signs
Temp Pulse Resp BP Pulse Ox
36.8 C 88 16 133/78 96
02/05/25 08:00 02/05/25 08:00 02/05/25 08:00 02/05/25 08:00 02/05/25 08:00
I&O
02/04/25 02/05/25 02/06/25
06:59 06:59 06:59
Intake Total 1000 / 1000 880 / 880 480 / 480
Output Total 100 / 100 500 / 500
Balance 900 / 900 380 / 380 480 / 480
Review of Systems
-
History Source: Patient
All other systems: Reviewed and negative
Physical Exam
-
General: Well Developed, Well Nourished, No Apparent Distress, Comfortable and Conversant
HEENT: Normocephalic, Atraumatic and Moist Mucous Membranes
Respiratory: Clear to Auscultation and Non Labored Respirations; Negative Accessory Resp Muscle Use
Cardiac: Regular Rhythm and S1/S2
GI: Soft, Nontender, Nondistended and Normal Bowel Sounds; Negative Organomegaly
Rectal: Deferred by Provider
Musculoskeletal: No Clubbing, No Cyanosis, No Edema and Other (LLE in splint)
Skin: Negative Rash
Neuro: Awake, Alert and Oriented (to name only)
Psych: Calm
Data Reviewed
-
Labs: Labs Reviewed by me
[2025-02-05 15:00] VITALS: BP 104/58
[2025-02-05] MEDS: LOVENOX 40 MG SC (18:11)
[2025-02-05] MEDS: ARICEPT 10 MG PO (21:12)
[2025-02-05] MEDS: SENOKOT 17.2 MG PO (21:12)
[2025-02-05] MEDS: LIPITOR 20 MG PO (21:12)
[2025-02-05 23:00] VITALS: BP 154/75
[2025-02-06 07:45] VITALS: BP 153/78
[2025-02-06] MEDS: ZOLOFT 50 MG PO (10:22)
[2025-02-06] MEDS: TYLENOL 1000 MG PO ×3 (10:22→21:54)
[2025-02-06] MEDS: ZESTRIL 10 MG PO (10:22)
--- NOTE | 2025-02-06 11:47 | W.PN.HOSP.TC ---
Today's Communication/Plan
-
Dispo to SNF
Assessment / Plan
Assessment / Plan
Impression
Left ankle fracture secondary to mechanical fall
Other conditions
Advanced frontotemporal dementia.
Benign hypertension
Plan
Status post mechanical fall with acute dislocated fracture of the medial malleolus and acute lateral dislocation of the talus
Status post successful reduction of dislocation in ED.
Given instability of fracture patient will required ORIF. Status post left ankle ORIF on 02/02.
Postoperative antibiotics for 24 hours as recommended
DVT prophylaxis with Lovenox SQ per ortho
Physical therapy assessment
Fall at Home
- Unclear etiology of falls.
- Potentially represents progression of dementia; however, family does note recent urinary symptoms.
- PT / OT evaluations.
- Follow for any new / worsening symptoms.
Benign Hypertension
- Stable. Continue usual lisinopril.
Frontotemporal Dementia
- Patient with memory impairment at baseline. Mildly anxious / agitated in the ED.
- Concern for mobility / weight bearing due to disorientation as noted above - strict fall precautions.
- Continue usual Aricept, sertraline, etc.
- Seroquel PRN for agitation.
DVT Prophylaxis: DVT prophylaxis with Lovenox SQ per ortho
Dispo: SNF
DW son and at bedside
Anticipated Discharge: Within 24 hours
Subjective/Interval History
-
Date of Service: February 06, 2025
Objective Data
-
Vital Signs:
Vital Signs
Temp Pulse Resp BP Pulse Ox
36.7 C 74 16 153/78 99
02/06/25 07:45 02/06/25 07:45 02/06/25 07:45 02/06/25 07:45 02/06/25 07:45
I&O
02/05/25 02/06/25 02/07/25
06:59 06:59 06:59
Intake Total 880 / 880 600 / 600 240 / 240
Output Total 500 / 500 350 / 350
Balance 380 / 380 250 / 250 240 / 240
Review of Systems
-
History Source: Patient
All other systems: Reviewed and negative
Physical Exam
-
General: Well Developed, Well Nourished, No Apparent Distress, Comfortable and Conversant
HEENT: Normocephalic, Atraumatic and Moist Mucous Membranes
Respiratory: Clear to Auscultation and Non Labored Respirations; Negative Accessory Resp Muscle Use
Cardiac: Regular Rhythm and S1/S2
GI: Soft, Nontender, Nondistended and Normal Bowel Sounds; Negative Organomegaly
Rectal: Deferred by Provider
Musculoskeletal: No Clubbing, No Cyanosis, No Edema and Other (LLE in splint)
Skin: Negative Rash
Neuro: Awake, Alert and Oriented (to name only)
Psych: Calm and Intact Judgement/Insight
Data Reviewed
-
Labs: Labs Reviewed by me
[2025-02-06 14:25] VITALS: BP 143/67; PULSE 80
[2025-02-06 15:45] VITALS: BP 126/67
[2025-02-06] MEDS: LOVENOX 40 MG SC (17:50)
[2025-02-06] MEDS: LIPITOR 20 MG PO (21:53)
[2025-02-06] MEDS: SENOKOT 17.2 MG PO (21:54)
[2025-02-06] MEDS: ARICEPT 10 MG PO (21:54)
[2025-02-06 23:30] VITALS: BP 148/86
[2025-02-07 07:06] VITALS: BP 139/74
[2025-02-07] MEDS: ZOLOFT 50 MG PO (10:32)
[2025-02-07] MEDS: TYLENOL 1000 MG PO (10:32)
[2025-02-07] MEDS: ZESTRIL 10 MG PO (10:32)
[2025-02-07 11:06] VITALS: BP 150/78; PULSE 72; O2SAT 96
[2025-02-07 11:17] VITALS: BP 150/78; PULSE 75; O2SAT 97
--- NOTE | 2025-02-07 13:20 | CM ---
Addendum entered by Martha Bartlett RN 02/07/25 13:49:
Call report to: [phone]
Fax report to: [phone]
Medical and transport forms on the chart.
Original Note:
Reviewed the chart notes and spoke with the patient's spouse via telephone. IMM reviewed. Patient accepted at [facility].
Insurance auth obtained; 5 days skill level; 02/07-02/11; call clinical review [phone]; auth # [id number].
Plan: Discharge to [facility] today.
[2025-02-07 14:55] VITALS: BP 154/85
--- NOTE | 2025-02-07 14:55 | PTCARENOTE ---
Pt assisted OOB to chair by PT/OT, sitting up in chair morst of afternoon. Pt to be discharged to [facility], report called to Iliana at [facility]. Silas at bedside when Acute care ambulance arrived to transport Pt.
== END 2025-02-07 15:15 | DRG 493 ==
LOC: 2 SOUTH 23:12
PROVIDERS: Emergency Medicine; Student in an Organized Health Care Education/Training Program; ADMITTING PHYSICIAN Hospitalist; ATTENDING PHYSICIAN Internal Medicine; CONSULT PHYSICIAN Orthopaedic Surgery; EMERGENCY PHYSICIAN Emergency Medicine; FAMILY PHYSICIAN Family Medicine
PROC: 0SSG04Z Reposition Left Ankle Joint with Internal Fixation Device, Open Approach (ICD-10-PCS; 2025-02-01)
PROC: 0QSK04Z Reposition Left Fibula with Internal Fixation Device, Open Approach (ICD-10-PCS; 2025-02-01)
PROC: 0QSH04Z Reposition Left Tibia with Internal Fixation Device, Open Approach (ICD-10-PCS; 2025-02-01)
DX: S82.852A Displaced trimalleolar fracture of left lower leg, initial encounter for closed fracture (principal); F03.911 Unspecified dementia, unspecified severity, with agitation; F03.94 Unspecified dementia, unspecified severity, with anxiety; W01.0XXA Fall on same level from slipping, tripping and stumbling without subsequent striking against object, initial encounter; G31.09 Other frontotemporal neurocognitive disorder; I10 Essential (primary) hypertension
CPT/HCPCS: 70450; 72125; 73610; 76000; 80048; 80053; 85025; 85027; 93005; 97110; 97163; 97167; 97530; 97535; C1713; C1769

== ENCOUNTER 2025-03-22 22:44 | Inpatient (IN) | payer OTHER, SELFPAY ==
[2025-03-22] VITALS (21 sets, daily range): BP systolic 48–118; BP diastolic 34–76
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
[2025-03-22] MEDS: ANECTINE 150 MG IV (20:18)
[2025-03-22] MEDS: AMIDATE 20 MG IV (20:18)
[2025-03-22 20:20] LABS: Glucose - Point of Care 161 mg/dl (70-99)
--- NOTE | 2025-03-22 20:35 | ED.GENMED ---
History of Present Illness
General
Chief Complaint: Unresponsive
Source: ambulance crew
Exam Limitations: altered mental status
Time Seen by Provider: 03/22/25 20:21
Nursing documentation reviewed up to this point in time: agreed with
History of Present Illness
History of Present Illness:
85-year-old male from [facility] Arnoldo Wilburn patient acute onset of shortness of breath apparently was speaking became acutely short of breath given a neb oxygen presented obtunded being bagged, sats in the 80s he has a immobilizer on his
left ankle apparently had a surgery recently other history is unobtainable as the patient's critically ill
Past History
Past History
ED Past Medical History: None
ED Past Surgical History: None
Social History
Tobacco: Non-smoker
Alcohol: None
Drug: None
Personal:
Living: with family
Phy Exam
Physical Exam
Physical Exam:
Physical Exam
General: Obtunded male, shallow respirations
Neck: No tongue bite pupils 3-4 OU
Heart: Regular
Lungs: Shallow respirations rhonchi bilaterally
Abdomen: Soft nontender
Neuro: Unable to assess
Skin: no rash
Psychiatric: Unable to assess
Extremities: Cyanosis is present
Course
Orders/Labs/Results
Orders:
Orders
03/22/25 20:21
Electrocardiogram (*1) Stat
Reason for Study: Other
Other Reason for Exam: chest pain
Cardiac Monitoring- Treatment ONCE
EKG- Treatment ONCE
CR Chest Portable - 1 View Urgent
Comment:
Reason For Exam: sob
Reason Study Needs to be Portable: Unable to Transport
03/22/25 20:22
Electrocardiogram (*1) Urgent
Reason for Study: Other
Other Reason for Exam: UNRESPONSIVE
CT Chest PE Study Urgent
Comment:
Reason For Exam: sob stat no labs
CT Head W/o Iv Contrast Urgent
Comment:
Reason For Exam: coma
Ventilator Initial Settings [RESP] Urgent
03/22/25 20:23
EKG- Treatment ONCE
[place] Placement- Treatment ONCE
Reason for insertion: I&O's Critical Care
Etomidate [Amidate 20 mg] 20 mg IV NOW STA
Fentanyl Citrate/Pf [Sublimaze] 50 mcg IV [id number] PRN
Succinylcholine Chloride [Anectine] 150 mg IV NOW STA
03/22/25 20:24
0.9% Sodium Chloride 1000 ml [Nss] 2,000 ml IV BOLUS
03/22/25 20:26
Propofol 1,000,000 Mcg/100 ml [Diprivan] 1,000,000 mcg in 100 ml .ROUTE .STK-MED
03/22/25 20:28
NORepinephrine 4 MG/250 ML [Levophed] 4 mg in 250 ml .ROUTE .STK-MED
03/22/25 20:30
FentaNYL 1,000 MCG/100 ML [Sublimaze] 1,000 mcg in 100 ml IV PER PROTOCOL
Indication:: Deep Sedation
Begin Infusion:: Now
Goal:: RASS </= -3, BIS 40-60, ventilator synchrony
Maximum dose in mcg/hr:: 300
Continue currently infusing dose and titrate:: Yes
Titration Instructions:: Titrate Q30 min until ventilator synchrony, RASS or BIS goal is met.
Titration Instructions:: If RASS >/= -2 or BIS > 60 or ventilator dyssynchrony:
Titration Instructions:: administer bolus dose and increase infusion by 25 mcg/hr.
Titration Instructions:: Administer analgesia bolus dose(s) & titrate analgesia prior to
Titration Instructions:: adjusting sedation.
Over-sedation Instructions:: if BIS < 40 and pt is synchronous with ventilator, decrease infusion by
Over-sedation Instructions:: 25 mcg/hr every 2 hours until BIS = 40-60.
Over-sedation Instructions:: Do not wean infusion to off if patient is receiving a continuous NMBA or
Over-sedation Instructions:: has received a bolus dose of NMBA within the past 3 hours.
Notify provider:: immediately if pt exhibits signs/symptoms of chest wall rigidity,
Notify provider:: hemodynamic instability, or agitation/pain despite maximum dosing.
Additional Instructions:: Patient MUST be mechanically ventilated.
NORepinephrine 4 MG/250 ML [Levophed] 4 mg in 250 ml IV PER PROTOCOL
Initial dose in mcg/min, then titrate:: 2
Titrate to keep:: SBP > 90 mmHg
Titrate by mcg/min:: 1-2 mcg/min
Frequency of titrations (minutes):: 5
Maximum dose in ICU in mcg/min:: 30
Maximum dose in IMU in mcg/min:: 8
Maximum dose in IVU in mcg/min:: 4
Begin to taper infusion when:: Remained at goal for 4hrs
Taper by mcg/min:: 1-2 mcg/min
Frequency of taper (minutes) if patient maintains goal:: 30
Taper to off?: Yes
If infusion off & no longer maintaining goal:: Contact Provider
Propofol 1,000,000 Mcg/100 ml [Diprivan] 1,000,000 mcg in 100 ml IV PER PROTOCOL
Indication:: Deep Sedation
Begin Infusion:: Now
Goal:: RASS -3 to -5 or BIS < 60 or ventilator synchrony
Maximum dose in mcg/kg/min:: 50
Initial dose based on RASS:: Yes
If RASS is:: +1 or pt hemodynamically unstable (SBP < 90mmHg), initiate at 10 mcg/kg/min
If RASS is:: +2, initiate at 20 mcg/kg/min
If RASS is:: greater than or equal to +3, initiate at 30 mcg/kg/min
Titration Instructions:: Titrate by 5-10 mcg/kg/min every 5 minutes until RASS -3 to -5 or
Titration Instructions:: BIS < 60 or ventilator synchrony is met.
Titration Instructions:: Administer analgesia bolus dose(s) & titrate analgesia prior to
Titration Instructions:: adjusting sedation.
Taper Instructions:: If RASS is at or below goal for 4 consecutive hours decrease infusion by
Taper Instructions:: 5-10 mcg/kg/min every 2 hours. Do not wean infusion to off if patient is
Taper Instructions:: receiving a continuous NMBA or has received bolus NMBA with the past 3 hrs
Over-sedation Instructions:: If BIS < 40 and synchronous with ventilator decrease infusion by
Over-sedation Instructions:: 5-10 mcg/kg/min every 2 hour until BIS = 40-60.
Notify provider:: immediately if patient exhibits signs/symptoms of propofol-related
Notify provider:: infusion syndrome.
Additional Instructions:: Patient MUST be mechanically ventilated and MUST receive analgesia.
03/22/25 20:34
Complete Blood Count/With Diff Urgent
Comprehensive Metabolic Panel Urgent
Lactic Acid Urgent
Magnesium Urgent
NT-proBNP Urgent
PTT Urgent
Prothrombin Time Urgent
TSH Urgent
Triglycerides Routine
Comment: baseline levels with propofol infusion
Troponin I Urgent
03/22/25 20:36
ABG [Arterial Blood Gas] Stat
%Oxygen/Room Air: 100
03/22/25 21:11
0.9% Sodium Chloride 1000 ml [Nss] 1,000 ml IV BOLUS
03/22/25 21:20
Urinalysis Reflex To Culture Urgent
Date Specimen was Collected: 03/22/25
Time Specimen was Collected: 21:19
Urine Microscopic Reflex Cult Urgent
Nursing to Place Non Medication Order As Directed
Physician Order: PTT 6 hours after initial start of Heparin infusion
03/22/25 21:23
Cefepime HCl [Maxipime] 2,000 mg IV NOW STA
03/22/25 21:25
Heparin 6,800 units IV PRN PRN
03/22/25 21:26
Heparin 3,400 units IV PRN PRN
03/22/25 21:30
Blood Culture Q30M
BRANDEN Source: Blood/Venous
Specimen Description:
Heparin [id number] Units/250 ml 25,000 units in 250 ml IV PER PROTOCOL
Weight to be used for heparin protocol in kilograms (kg):: 85.6
Protocol:: DVT/PE
PTT Goal Range to be used:: PTT 73 to 111 seconds
Order type:: Initial
INITIAL Infusion Dose (UNITS/KG/hr) & then follow protocol:: 18 units/kg/hr
Infusion Dose in UNITS/hr & then follow protocol (UNITS/hr):: 1,500
INFUSION RATE in mL/hr & then follow protocol (mL/hr):: 15
For DVT/PE algorithm, re-bolus for low PTT?: Yes
PTT less than or equal to 64 seconds:: Re-bolus 80 units/kg (max 10,000units). Increase by 300 units/hr
(+ 3mL/hr)
PTT 64.1 to 72.9 seconds:: Re-bolus 40 units/kg (max 5,000 units). Increase by 200 units/hr
(+ 2mL/hr)
PTT 73 to 111 seconds:: Target Range. No change in rate.
PTT 111.1 to 130.9 seconds:: Decrease rate by 200 units/hr (- 2 mL/hr)
PTT 131 to 199.9 seconds:: HOLD for 1 hr. Then decrease by 300 units/hr (- 3mL/hr)
PTT greater than or equal to 200 seconds:: HOLD for 2 hrs & Notify Provider. Then decrease by 300 units/hr
(- 3mL/hr)
Lab follow-up:: Each change, PTT q6h until 2 consecutive are therapeutic. Then
PTT daily.
03/22/25 21:45
Rectal Temp- Treatment ONCE
03/22/25 22:00
Blood Culture Q30M
BRANDEN Source: Blood/Venous
Specimen Description:
03/22/25 22:09
ABG [Arterial Blood Gas] Stat
%Oxygen/Room Air: intubated
03/23/25 08:00
Polyethylene Glycol Powder [Miralax] 17 grams TUBE DAILY
Polyethylene Glycol Powder [Miralax] 17 grams TUBE DAILY
03/25/25 06:00
Triglycerides Q3D
Comment: every 72 hours while patient is on propofol
03/28/25 06:00
Triglycerides Q3D
Comment: every 72 hours while patient is on propofol
03/31/25 06:00
Triglycerides Q3D
Comment: every 72 hours while patient is on propofol
Abnormal Lab Results
03/22/25 03/22/25 03/22/25
20:18 20:34 20:36
WBC 22.3 H 10^3/uL
(4.8-10.8)
RBC 4.07 L 10^6/uL
(4.70-6.10)
Hgb 12.4 L g/dL
(13.0-18.0)
Hct 38.4 L %
(39.0-52.0)
MCV 94.3 H fL
(80.0-94.0)
MCHC 32.3 L g/dL
(33.0-37.0)
Abs Immat Gran (auto) 0.4 H 10^3/uL
(0-0.05)
Absolute Neuts (auto) 16.4 H 10^3/uL
(1.4-6.5)
Absolute Lymphs (auto) 4.3 H 10^3/uL
(1.2-3.4)
Absolute Monos (auto) 1.1 H 10^3/uL
(0.1-0.6)
Immature Gran % 1.6 H %
(0-0.5)
Lymphocytes % 19.3 L %
(20.5-51.1)
PT 16.0 H Sec
(11.4-14.6)
pH 7.05 L*
(7.35-7.45)
pCO2 57 H mmHg
(35-48)
pO2 72 L mmHg
(83-108)
HCO3 15.8 L* mmol/L
(21-28)
ABG O2 Sat (Measured) 91.0 L %
(94-98)
Chloride 109 H mmol/L
(98-107)
Carbon Dioxide 11 L* mmol/L
(22-30)
BUN 90 H mg/dl
(9-20)
Creatinine 4.9 H* mg/dL
(0.7-1.3)
Glucose 190 H mg/dl
(70-99)
Lactic Acid 5.5 H* mmol/L
(0.7-2.0)
Magnesium 2.7 H mg/dl
(1.6-2.3)
AST 111 H U/L
(17-59)
Troponin I 0.055 H* ng/ml
Triglycerides 255 H mg/dl
(10-149)
TSH 4.78 H uIU/ml
(0.47-4.68)
Ur Occult Blood Reflex
Urine RBC
Urine Albumin (Reflex)
POC Glucose 161 H mg/dl
(70-99)
03/22/25
21:20
WBC
RBC
Hgb
Hct
MCV
MCHC
Abs Immat Gran (auto)
Absolute Neuts (auto)
Absolute Lymphs (auto)
Absolute Monos (auto)
Immature Gran %
Lymphocytes %
PT
pH
pCO2
pO2
HCO3
ABG O2 Sat (Measured)
Chloride
Carbon Dioxide
BUN
Creatinine
Glucose
Lactic Acid
Magnesium
AST
Troponin I
Triglycerides
TSH
Ur Occult Blood Reflex 3+ A
(Negative)
Urine RBC 7-10 A /HPF
(0-2)
Urine Albumin (Reflex) 1+ A
(Neg - Trace)
POC Glucose
03/22/25 20:34
03/22/25 20:34
Vital Signs
Initial and Last Documented VS:
Initial Vital Signs
Pulse Resp
44 14
03/22/25 20:29 03/22/25 20:29
Last Documented Vital Signs
Temp Pulse Resp BP Pulse Ox
97.5 F 109 22 83/45 80
03/22/25 22:10 03/22/25 21:30 03/22/25 21:30 03/22/25 21:30 03/22/25 20:38
Procedures
Intubations
Procedure completed by: amanda
Method of Intubation: glidescope
Tube size (cm): 8.0
Placement confirmed by: auscutation
Breath sounds after intubation: equal
Intubation complications: no complications
MDM/Problems Addressed
Differential Diagnosis Includes:
PE aspiration heart failure intracerebral hemorrhage other
MDM/Problems Addressed:
Respiratory failure respiratory distress
*Radiology
Radiology exam reviewed: radiology read reviewed
*Pulse Oximetry
SaO2: 80
Oxygen Mode of Delivery: Resuscitation bag
Patient hypoxic: yes
*EKG
Interpreted by ED Provider?: Yes
Interpretation: abnormal
Comparison EKG: no comparison EKG present
Heart Rate: 120
Rate: tachycardiac
Rhythm: sinus
Ischemia: non-specific ST changes
*Marine Diesel Mechanic Interpretation
Rate: tachycardiac
Interpretation: abnormal
Heart Rate: 120
Rhythm: sinus
*Critical Care Note
Total Time (30-74mins, 75-104mins- exclusive of procedures): 33
Update Note
Update Note:
Update patient urgently intubated upon presentation oxygenating okay does have his bradycardic rhythm transiently lost his pulse recognized immediately CPR epi bicarb calcium norepinephrine infusion volume infusion with return of spontaneous
circulation
8:45 PM reviewed with daughter and spouse reviewed advanced directive which is in the chart
Patient's been short of breath for a few days coughing
910, CT noted reviewed radiology large PE PERT alert called
Reviewed with radiology this is a clot burden is not that bad
Will start unfractionated heparin continue resuscitation hold on lytics at this point--multiple conversations over [place] text with hospitalist, marketing proposal specialist, interventional radiology, family updated
ED Attending Note
-
Portions of this chart may have been created with voice recognition software.� Occasional wrong word or��sound alike� substitutions may have occurred due to the inherent limitations of voice recognition software.
Discharge Plan
Departure
Patient Disposition: Admit
Date of Disposition: 03/22/25
Time of Disposition: 21:29
Admit to: IVU
Presentation/result/management discussed w/ accepting MD/DO: Hospitalist
Patient with high blood pressure during this ER visit?: No
Condition: Critical
Covid-19: Not Applicable
Discharge Problem:
Respiratory failure, acute, Acute renal failure, Pulmonary embolism, Pneumonia
Prescriptions:
No Action
donepezil 10 mg Tablet
10 mg PO QPM
simvastatin 40 mg Tablet
40 mg PO QPM
lisinopril 10 mg Tablet
10 mg PO DAILY
sertraline 50 mg Tablet
50 mg PO DAILY
vitamin B complex Tablet
1 tab PO DAILY
ipratropium-albuterol 0.5 mg-3 mg(2.5 mg base)/3 mL Solution For Nebulization
3 ml INHALATION R Q6HPRN PRN (Reason: wheezing)
loperamide [Imodium A-D] 2 mg Tablet
4 mg PO DAILYPRN MDD 8 mg PRN (Reason: loose stool)
Patient Comments:
03/22/2025, give 2 tabs = after 1st loose stool times 1 than 1 tab after each loose stool.
magnesium hydroxide [Milk of Magnesia] 400 mg/5 mL Suspension
30 ml PO HSPRN PRN (Reason: constipation)
bisacodyl 10 mg Suppository
10 mg PA [id number] PRN (Reason: if no BM and MOM/lactulose ineffective)
acetaminophen [Tylenol] 325 mg tablet
650 mg PO Q4HPRN MDD 3000 mg PRN (Reason: mild pain/fever>100.4)
Referrals:
Doc Madera MD [Family Provider, Family Practice]
Interventions
Interventions:
ED- Neurological Assessment Last Done: 03/22/25 21:51
Discharge Date and Time
Print Language: KINYARWANDA
[2025-03-22 20:47] LABS: % Basophils 0.4 % (0-2); % Eosinophils 0.2 % (0-6); % Immature Granulocytes 1.6 % (0-0.5); % Lymphocytes 19.3 % (20.5-51.1); % Neutrophils 73.5 % (42.2-75.2); Absolute Basophils 0.1 10^3/uL (0-0.2); Absolute Eosinophils 0.1 10^3/uL (0-0.7); Absolute Immature Granulocytes 0.4 10^3/uL (0-0.05); Absolute Lymphocytes 4.3 10^3/uL (1.2-3.4); Absolute Monocytes 1.1 10^3/uL (0.1-0.6); Absolute Neutrophils 16.4 10^3/uL (1.4-6.5); Hematocrit 38.4 % (39.0-52.0); Hemoglobin 12.4 g/dL (13.0-18.0); Mean Corp Hgb Conc. 32.3 g/dL (33.0-37.0); Mean Corpuscular Hgb 30.5 pg (27.0-31.0); Mean Corpuscular Volume 94.3 fL (80.0-94.0); Mean Platelet Volume 9.8 fL (7.4-10.4); Nucleated Red Blood Cells % 0 % (-); Platelet Count 279 10^3/uL (130-400); Red Blood Cell Count 4.07 10^6/uL (4.70-6.10); Red Cell Dist. Width 13.1 % (11.5-14.5); White Blood Cell Count 22.3 10^3/uL (4.8-10.8)
[2025-03-22 20:48] LABS: B.E. -14.5 mmol/L; PCO2 57 mmHg (35-48); PO2 72 mmHg (83-108)
[2025-03-22 20:49] LABS: HCO3 15.8 mmol/L (21-28); pH 7.05 (7.35-7.45)
[2025-03-22 20:50] LABS: INR 1.25
[2025-03-22 20:51] LABS: APTT 28.5 Sec (23.4-35.0)
[2025-03-22 20:59] LABS: Lactic Acid 5.5 mmol/L (0.7-2.0)
[2025-03-22 21:00] LABS: ALT (SGPT) 43 U/L (0-50); AST (SGOT) 111 U/L (17-59); Albumin 3.6 g/dl (3.5-5.0); Alkaline Phosphatase 98 U/L (38-126); Blood Urea Nitrogen 90 mg/dl (9-20); Carbon Dioxide 11 mmol/L (22-30); Chloride 109 mmol/L (98-107); Glucose 190 mg/dl (70-99); Magnesium 2.7 mg/dl (1.6-2.3); Potassium 4.7 mmol/L (3.5-5.1); Sodium 140 mmol/L (135-145); Total Bilirubin 0.8 mg/dl (0.2-1.3); Total Protein 6.4 g/dl (6.3-8.2); Triglycerides 255 mg/dl (10-149); eGFR 11.02
[2025-03-22 21:08] LABS: NT-proBNP 501 pg/ml; Troponin I 0.055 ng/ml
[2025-03-22] MEDS: DIPRIVAN 100 IV (21:11)
[2025-03-22] MEDS: NSS 2000 IV (21:16)
[2025-03-22 21:25] LABS: TSH 4.78 uIU/ml (0.47-4.68)
[2025-03-22] MEDS: SUBLIMAZE 50 MCG IV ×2 (21:26→22:29)
[2025-03-22 21:28] LABS: Urine Albumin 1+ (Neg - Trace); Urine Bilirubin Negative (Negative); Urine Character Clear (Clear); Urine Color Yellow; Urine Glucose Negative (Negative); Urine Ketone Negative (Negative); Urine Leukocyte Negative (Negative); Urine Nitrite Negative (Negative); Urine Occult Blood 3+ (Negative); Urine Specific Gravity 1.015 (<1.030); Urine Urobilinogen Negative (Neg - 1+)
[2025-03-22 21:40] LABS: Urine Calcium Oxalate Crystals Present
[2025-03-22] MEDS: MAXIPIME 2000 MG IV (21:45)
--- NOTE | 2025-03-22 22:10 | HPS.HSE ---
Family Physician
-
Family Physician: Doc Madera
Chief Complaint
-
Respiratory distress, unresponsive
History of Present Illness
This an 85-year-old male who has a past medical history of hyperlipidemia, hypertension, dementia, recent ankle fracture status post surgery 1 month ago who presented to the emergency department in respiratory distress and unresponsive.
Patient came in from [facility] with apparent acute onset shortness of breath as he was speaking. He was given nebulizer treatment and oxygen and then brought to the emergency department in an obtunded state. He was being bagged on arrival in
the emergency department. Had a very acute onset of symptoms and further history could not be obtained. He had a very brief chest compression for support but did not appear to lost pulse for any significant duration. He is intubated now and on
pressors.
Additional history from family stated that he has been coughing and weak for about 2 days.
He had a CT PE in the ED which revealed:
Extensive right-sided pulmonary embolism beginning within the right main pulmonary artery and extending into right upper and lower lobar and segmental pulmonary arteries.
2. CT evidence for right heart strain.
3. Right lower lobe consolidation may reflect atelectasis, pneumonia and/or component of pulmonary infarct.
Per discussion with interventional radiology, 6 pulmonary fissure dilated to the right ventricle which may be chronic did recommend no thrombolysis due to high risk and anticoagulation with heparin.
Imaging and case reviewed by pulmonary, given the high likelihood of sepsis as etiology for his shock state in addition to the pulmonary embolism, it was felt that thrombosis is not appropriate at this time.
Notable labs are white count of 22, serum bicarb of 11, BUN 90 creatinine 4.9
Troponin was 0.01, BNP was 500
ECG showed sinus tachycardia with PACs and no acute ST or T wave changes.
Blood gas was 7.05/57/72
Medical History
Past Medical History
Past Medical History: Reports Other
Additional Past Medical History:
Frontotemporal Dementia
Benign Hypertension
Past Surgical History: Reports None
Social History
Tobacco: Non-smoker
Alcohol: Occasional
Drug: None
Personal:
Living: With Family
Family History
Family History: Not pertinent
Allergies / Home Medications
Allergies reflects when Allergies were last updated in [facility].
Home Medications with original date entered in [facility]
Allergy/Medication List:
Allergies
Allergy/AdvReac Type Severity Reaction Status Date / Time
No Known Allergies Allergy Verified 03/12/17 10:20
Home Medications
donepezil 10 mg tablet 10 mg PO HS 02/01/25
lisinopril 10 mg tablet 10 mg PO DAILY 02/01/25
sertraline 50 mg tablet 50 mg PO DAILY 02/01/25
simvastatin 40 mg tablet 40 mg PO HS 02/01/25
Review of Systems
-
Unable to obtain full review of systems at this time due to: Patient Intubation
History Source: Family
A 12 point ROS was completed and negative except as noted: Yes
Constitutional: Reports Chills
Respiratory: Reports Cough
Physical Exam
Vital Signs
Vital Signs
Temp Pulse Resp BP Pulse Ox
98.2 F 109 22 83/45 80
03/22/25 21:41 03/22/25 21:30 03/22/25 21:30 03/22/25 21:30 03/22/25 20:38
Physical Exam
General: Intubated
HEENT: NormoCephalic, Anicteric, Moist mucous membranes and Atraumatic
Respiratory: Rales
Cardiac: S1/S2 and Regular Rhythm; No Murmur, Rub or Gallop
Breast: Deferred by me
GI: Soft and Normal Bowel Sounds
Rectal: Deferred by Provider
Genito-urinary: Deferred by me
Musculoskeletal: No Cyanosis and No Edema
Skin: Warm
Neuro: Sedated
Laboratory Results
-
03/22/25 20:34
03/22/25 20:34
Laboratory Results
PT 16.0 Sec (11.4-14.6) H 03/22/25 20:34
INR 1.25 03/22/25 20:34
APTT 28.5 Sec (23.4-35.0) 03/22/25 20:34
pH 7.05 (7.35-7.45) L* 03/22/25 20:36
pCO2 57 mmHg (35-48) H 03/22/25 20:36
pO2 72 mmHg (83-108) L 03/22/25 20:36
HCO3 15.8 mmol/L (21-28) L* 03/22/25 20:36
Lactic Acid 5.5 mmol/L (0.7-2.0) H* 03/22/25 20:34
Total Bilirubin 0.8 mg/dl (0.2-1.3) 03/22/25 20:34
AST 111 U/L (17-59) H 03/22/25 20:34
ALT 43 U/L (0-50) 03/22/25 20:34
Alkaline Phosphatase 98 U/L (38-126) 03/22/25 20:34
Troponin I 0.055 ng/ml H* 03/22/25 20:34
Data Reviewed
-
Diagnostic Radiology: Image Personally Visualized and interpreted
CT Scan: Report Reviewed by me
Medical Tests (Nuc Med, Echo, EKG etc): Image Personally Visualized and interpreted
Lab Data: Labs Reviewed by me
Impression/Plan
-
IMPRESSION:
85-year-old with past medical history of hypertension, hyperlipidemia, dementia 6 weeks status post R ankle surgery presenting to the emergency department in acute respiratory distress and obtundation. Patient has multiorgan dysfunction with
hypoxic respiratory failure, circulatory collapse, pulmonary embolism, pneumonia and renal failure. History of cough for the last 2 days. Suspect sepsis complicated by pulmonary embolism. ECG is nonischemic. Troponin is slightly three 0.055 and
BNP is 500. Pulmonary arteries and RV dilated. There is significant clot burden with extensive right-sided pulmonary embolism and also likely right-sided pneumonia/pulmonary infarct although with a leukocytosis and recent history of cough likely
pneumonia.
PLAN:
Hypoxic respiratory failure
- mechanical ventilation AC 20 500 100 5 for now. No obstructive pattern and improved oxygenation
- adjusted just before abg, repeat in 1 -2 hours
- maintain O2 >93, pH > 7.3
Pulmonary embolism - Right sided embolism, likely provoked. HD collapse thought from sepsis. Possible RV strain, high risk for CDT now.
- heparin gtt
- echo
- CDT reconsidered pending the echo
- trend troponin
Pneumonia - RLL infiltrate. Septic shock. Cannot rule out aspiration
- Blood cultures
- secretions cultured
- IV vanc/cefepime/doxy for now
- legionella and pneumococcal ag
- septic 3L crystolloid bolus
- nebs
- acoustical logging engineer consulted
Renal Failure - Septic shock, likely ATN. Oliguric
- after fluid resuscitation, will keep maintenance fluid overnight
- electrolytes Kk ok
- replete bicarb and adjust vent for acidemia
- zaragoza placed
- urine studies
- i/o
- nephrology consultation
Code Status - Ful Code
[2025-03-22 22:33] LABS: B.E. -14.4 mmol/L; PCO2 32 mmHg (35-48); PO2 250 mmHg (83-108)
[2025-03-22] MEDS: HEPARIN 25000 UNITS/250 ML IV (22:35)
[2025-03-22 22:39] LABS: HCO3 12.5 mmol/L (21-28)
[2025-03-22] MEDS: LR 1000 IV (22:51)
--- NOTE | 2025-03-22 23:14 | W.PN.UPDATE ---
Update Note
Progress Note Update
Procedure Note: Arterial Line�
� Right Wrist Arrow 20 (11/30)�
Diagnosis:��PE
IV Line Comments: Uneventful Procedure�
Mike's test completed pre-procedure: Yes�
A-Line Comments: Sterile technique as per standard protocol, Ultrasound guided insertion�
Functioning A-line in situ: Yes�
A-line Insertion Start Time:�0130�
A-line in at:��0145
[2025-03-22 23:42] LABS: Glucose - Point of Care 173 mg/dl (70-99)
[2025-03-23] VITALS (33 sets, daily range): BP systolic 79–134; BP diastolic 45–71; BMI 27.9
[2025-03-23] MEDS: SODIUM BICARBONATE 1150 MEQ IV ×2 (00:05→17:29)
[2025-03-23] MEDS: VIBRAMYCIN 260 MG IV ×2 (00:06→12:20)
[2025-03-23] MEDS: SODIUM BICARBONATE 50 MEQ IV (00:10)
[2025-03-23] MEDS: DIPRIVAN 100 IV ×3 (00:15→16:20)
[2025-03-23 00:18] LABS: Lactic Acid 4.1 mmol/L (0.7-2.0)
[2025-03-23] MEDS: LEVOPHED 250 IV ×3 (00:51→06:19)
[2025-03-23 01:04] LABS: Urine Albumin 3+ (Neg - Trace); Urine Bilirubin Negative (Negative); Urine Character Cloudy (Clear); Urine Color Brown; Urine Glucose Negative (Negative); Urine Ketone Negative (Negative); Urine Leukocyte 2+ (Negative); Urine Nitrite Negative (Negative); Urine Occult Blood 4+ (Negative); Urine Specific Gravity 1.025 (<1.030); Urine Urobilinogen Negative (Neg - 1+)
[2025-03-23 01:15] LABS: Urine Red Blood Cell >100 /HPF (0-2); Urine Squamous Cell None seen /LPF (Few)
[2025-03-23 01:16] LABS: Urine Bacteria Few (Negative); Urine White Cell 16-20 /HPF (0-5)
[2025-03-23 01:24] LABS: Urine Sodium 26 mmol/L (30-90)
[2025-03-23] MEDS: VANCOCIN 540 MG IV (01:42)
--- NOTE | 2025-03-23 02:52 | PTCARENOTE ---
LAbs sent, Bita placed by MANAGER CARGO, large loose BM, rectal trumpet placed, ED was unable to get OGT place, MANAGER CARGO okay with leaving out for now due to bloody oral secretions
[2025-03-23 02:56] LABS: B.E. -8.7 mmol/L; Ionized Calcium 1.16 mMOL/L (1.15-1.33); O2 Saturation % 99.3 % (94-98); PCO2 20 mmHg (35-48); PO2 88 mmHg (83-108); Potassium 3.6 mMOL/L (3.5-5.1); Sodium 136 mMOL/L (136-145); pH 7.44 (7.35-7.45)
[2025-03-23 02:58] LABS: HCO3 13.6 mmol/L (21-28)
[2025-03-23 03:08] LABS: Lactic Acid 2.5 mmol/L (0.7-2.0)
--- NOTE | 2025-03-23 03:22 | PTCARENOTE ---
BP randomly drops to MAPs in the low 60s high 50s but recovers quickly to MAPs in the 70s, SPECIAL EDUCATION TUTOR aware, no new orders at this time
--- NOTE | 2025-03-23 04:17 | PTCARENOTE ---
TRop elevated, CATHODE MAKER made aware, pt remains on hep gtt and EKG order placed and completed
[2025-03-23 05:44] LABS: APTT 143.6 Sec (23.4-35.0)
--- NOTE | 2025-03-23 05:55 | PTCARENOTE ---
weaning down on prop gtt, pt more awake, moving upper extremities slightly, coughing and moving lips, family at bedside around 0530
--- NOTE | 2025-03-23 06:04 | PTCARENOTE ---
decreased U/O, myke/blood tinged urine, PLASTERER ROUGH made aware and at bedside, no new orders at this time
[2025-03-23 06:43] LABS: Cortisol, Random 56.3 ug/dl
[2025-03-23 06:54] LABS: Blood Urea Nitrogen 87 mg/dl (9-20); Calcium 8.7 mg/dl (8.4-10.2); Carbon Dioxide 13 mmol/L (22-30); Chloride 111 mmol/L (98-107); Estimated Creatinine Clearance 17 ml/min; Glucose 241 mg/dl (70-99); Phosphorus 4.2 mg/dl (2.5-4.5); Potassium 3.6 mmol/L (3.5-5.1); Sodium 139 mmol/L (135-145); eGFR 18.38
--- NOTE | 2025-03-23 07:17 | PTCARENOTE ---
LLE boot remains intact
[2025-03-23] MEDS: DUONEB 3 ML INH ×4 (07:41→20:32)
[2025-03-23] MEDS: MIRALAX TUBE (08:04)
--- NOTE | 2025-03-23 08:10 | CON.INTV ---
Consultation
Consultation Request
Date/Time Consultation Requested: 03/22/20252320
Date/Time Consultation Performed: 03/23/2025806
Requesting Provider: Dr. Eason
Performing Provider: Dr. Carpenter
Reason for Consultation: Intubated/acute PE
Medical History
-
Chief Complaint: Unresponsive
History of Present Illness:
85-year-old male with a past medical history of frontotemporal dementia, hypertension and hyperlipidemia who presented with unresponsiveness. Patient lives in [facility]. In the ER he was short of breath, given nebulizers and then became
obtunded, was emergently intubated, then became bradycardic with loss of pulse. CPR performed immediately, epinephrine + bicarb, calcium given with ROSC obtained. Levophed started as well. CT head obtained showing no acute intracranial
abnormality, and CTA of the chest obtained showing a right sided pulmonary embolism with RV strain, as well as a right lower lobe pneumonia. PERT alert called. Other labs that were significant were metabolic acidosis with serum bicarbonate level
11, creatinine 4.9 (baseline 0.9), lactate 4.1, troponin 0.055, proBNP 501, pH 7.20, pCO2 32, INR 1.25, Hb 12.4 and WBC 22.3. Given that the patient's pulmonary embolism clot burden was not significant and given his multiorgan failure with DU,
with pneumonia and acidosis, he was not considered a thrombolytic candidate. He was transferred to the ICU for further care and professor of education services consulted for additional management/recommendations.
Patient was seen and evaluated this morning. Remains intubated on AC/CMV at: 22/550/40%/5. PIP currently [id number], VTe 433 mL and breathing at 18 breaths/min. He is saturating 96% with BP via A-line: 98/56, and heart rate 92. End-tidal CO2
currently 13. Pt is currently on levohed at 16mcg/min. He has a LUE PICC line. Propofol currently at 40mcg/kg/min and fentanyl at 50mcg/hr. Bloody secretions from ETT subglottic.
Taylor and daughter Kellie both present at bedside and all questions were answered. They said that over the last week, the patient's become more agitated and eating less over the last 5 to 6 days. His breathing has been sounding more bubbly
over the last few days/weeks and he has a wet sounding cough. Although he has dementia, he does still recognize his family. 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
PMHx: Hypertension, hyperlipidemia, frontotemporal dementia, vitamin D deficiency
PSHx: Umbilical hernia repair, left ankle ORIF
Past Medical History
Past Medical History: Other (Above as per HPI)
Past Surgical History: Other (Above as per HPI)
Social History
Tobacco: Non-smoker
Alcohol: Occasional
Drug: None
Personal:
Living: Group Home
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
Family History
Family History: Unable to Obtain
Allergies / Home Medications
Allergies
Allergy/AdvReac Type Severity Reaction Status Date / Time
No Known Allergies Allergy Verified 03/12/17 10:20
Home Medications
�Medication �Instructions �Recorded �Confirmed �Last Taken �Type
donepezil 10 mg tablet 10 mg PO QPM 02/01/25 03/22/25 03/22/25 History
lisinopril 10 mg tablet 10 mg PO DAILY 02/01/25 03/22/25 03/22/25 History
sertraline 50 mg tablet 50 mg PO DAILY 02/01/25 03/22/25 03/22/25 History
simvastatin 40 mg tablet 40 mg PO QPM 02/01/25 03/22/25 03/22/25 History
vitamin B complex 1 tab PO DAILY 02/02/25 03/22/25 03/22/25 History
acetaminophen 325 mg tablet 650 mg PO Q4HPRN PRN mild 03/22/25 03/22/25 Unknown History
(Tylenol) pain/fever>100.4
bisacodyl 10 mg rectal suppository 10 mg NJ [id number] PRN if no BM and 03/22/25 03/22/25 03/21/25 History
MOM/lactulose ineffective
ipratropium 0.5 mg-albuterol 3 mg 3 ml inhalation R Q6HPRN PRN 03/22/25 03/22/25 Unknown History
(2.5 mg base)/3 mL nebulization wheezing
soln
loperamide 2 mg tablet (Imodium 4 mg PO DAILYPRN PRN loose stool 03/22/25 03/22/25 Unknown History
A-D)
magnesium hydroxide 400 mg/5 mL 30 ml PO HSPRN PRN constipation 03/22/25 03/22/25 03/19/25 History
oral suspension (Milk of Magnesia)
Review of Systems
-
Unable to Obtain full review of systems at this time due to: Patient Intubation
Vitals / Labs / Diagnostic Testing
Vital Signs
Temp Pulse Resp BP Pulse Ox
98.9 F 92 22 129/67 95
03/23/25 07:38 03/23/25 08:00 03/23/25 08:00 03/23/25 07:45 03/23/25 08:00
Lab Data
03/22/25 20:34
03/23/25 05:08
Laboratory Results
03/22/25 03/22/25 03/22/25
20:34 20:36 22:21
PT 16.0 H
INR 1.25
APTT 28.5
pH 7.05 L* 7.20 L
pCO2 57 H 32 L
pO2 72 L 250 H
HCO3 15.8 L* 12.5 L*
O2 Delivery Level
03/23/25 03/23/25
02:45 05:08
PT
INR
APTT 143.6 H
pH 7.44
pCO2 20 L
pO2 88
HCO3 13.6 L*
O2 Delivery Level
Microbiology
03/23/25 02:41 Feces/Stool C. difficile GDH Antigen & Toxins - Final
Negative for toxigenic C.difficile
03/22/25 21:20 Urine Legionella Urinary Antigen - Final
Negative for Legionella pneumophila Serogroup 1 antigen.
A negative result does not rule out the possiblity of
Legionella infection due to other serogroups or species of
Legionella. Clinical correlation is recommended.
03/22/25 21:20 Urine Streptococcus pneumoniae Antigen (M - Final
Negative for Streptococcus pneumoniae antigen.
A negative result does not exclude infection with
Streptococcus pneumoniae. Clinical correlation is
recommended.
Diagnostic Testing:
Physical Exam
-
HEENT: Normocephalic, Anicteric and Other (ETT in place)
Cardiovascular: S1/S2 and Peripheral Edema (negative)
Respiratory: Wheeze (negative), Rales (negative), Rhonchi (negative) and Other (Mechanical breath sounds heard bilaterally)
GI: Soft, Non Distended, Non Tender and Normal Bowel Sounds
Neurology: Tremors (negative) and Other (Sedated)
Skin: Warm, Dry and Other (Boot on left foot)
General: Respiratory Distress (negative), Comfortable, Fever (negative) and Chills (negative)
Assessment
-
Assessment: 85-year-old male with a past medical history of frontotemporal dementia, hypertension and hyperlipidemia who presented with unresponsiveness. Patient lives in [facility]. In the ER he was short of breath, given nebulizers and
then became obtunded, was emergently intubated, then became bradycardic with loss of pulse. CPR performed immediately, epinephrine + bicarb, calcium given with ROSC obtained. Levophed started as well. CT head obtained showing no acute
intracranial abnormality, and CTA of the chest obtained showing a right sided pulmonary embolism with RV strain, as well as a right lower lobe pneumonia. PERT alert called. Other labs that were significant were metabolic acidosis with serum
bicarbonate level 11, creatinine 4.9 (baseline 0.9), lactate 4.1, troponin 0.055, proBNP 501, pH 7.20, pCO2 32, INR 1.25, Hb 12.4 and WBC 22.3. Given that the patient's pulmonary embolism clot burden was not significant and given his multiorgan
failure with DU, with pneumonia and acidosis, he was not considered a thrombolytic candidate. He was transferred to the ICU for further care and professor of education services consulted for additional management/recommendations.
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
Impression:
#Acute respiratory failure with hypoxia on mechanical ventilation (intubated 03/18/2025)
#In-hospital cardiac arrest (occurred postintubation, preceded by bradycardia, with ROSC obtained after epi + bicarb - this was likely PEA as no shock was administered)
#Circulatory shock due to sepsis + acidosis in the setting of a right-sided PE
#Acute right-sided PE with RV strain
#Pulmonary hypertension due to above (possibly in the setting of chronic PH)
#Right lower lobe pneumonia
#DU
#Anemia
#Hyperglycemia
#Elevated troponin (likely demand ischemia in the setting of recent CPR)
#Metabolic acidosis with increased anion gap
#Lactic acidosis
#Recent left trimalleolar ankle fracture s/p ORIF, plate and screw fixation, with syndesmotic fixation and stress exam under anesthesia.
Plan:
- Patient is hypoxic due to multiple factors, including pneumonia, sepsis with acute organ dysfunction and an acute PE
- His pulmonary embolism is a moderate amount of clot burden and is not entirely responsible for his shock state
- This is why he did not go for catheter directed thrombolysis versus embolectomy after his PERT alert on admission
- Continue with heparin drip
- Check echo
- Lower extremity duplex shows a left-sided DVT involving his common femoral + proximal/mid femoral veins, with no DVT on the right
- If he survives this hospitalization, he should follow-up with hematology as an outpatient
- Continue with mechanical ventilation with daily SAT/SBT if clinically appropriate
- Maintain plateau pressure <30 and titrate FiO2 + PEEP to keep SpO2 >90-94%
- Continue aspiration precautions; keep HOB >30-45�
- prn nebulized bronchodilators - not currently bronchospastic
- Oropharyngeal + deep ETT suctioning with subglottic as needed
- Daily CXR + blood gas
- Daily vent adjustments as needed based on blood gas and SaO2
- Low level of sedation with goal RASS as 0 to -2
- Continue antibiotics with cefepime/Doxy/IV vancomycin
- Continue DuoNebs
- Check sputum culture from ETT; follow-up urine culture + blood cultures; follow-up MRSA screen; urine antigens for Legionella + strep pneumonia both negative
- Trend WBC and monitor fever curve
- Maintain MAP>65
- Continue vasopressors, and if Levophed requirements continue to increase then would add vasopressin, followed by Morales-Synephrine
- Check a random cortisol level, and if <20 then would consider starting stress dose steroids
- Renally dose all meds/Abx
- Trend UOP; nephrology on board and recs appreciated
- Trend serum HCO3 level; continue bicarb gtt
- Trend troponin until it peaks; consult cardiology
- Replete electrolytes with K>4, Mg>2
- Maintain euglycemia with goal BG 140-180; start ISS; check A1C
- Trend H/H and transfuse if needed to keep Hb>7-8g/dL; keep plt>20k, unless there is concern for bleeding then keep plt>50k
- Stress ulcer ppx
- Early nutrition if appropriate (i.e. if vasopressor requirements are low)
- DVT ppx: heparin gtt
- Guarded prognosis - the patient's daughter and were updated and all questions were answered. They did say that if the patient were to continue to deteriorate, that they would likely discuss withdrawing care at that time. They think that few
days ago when he was not doing as well, not eating as much, that this was the patient basically getting ready/prepared to .
Code status: Full code
Continue ICU level care for this critically ill patient.
Critical care statement: A total of 42 minutes of critical care time was provided for this patient today. This includes management of unstable vital signs, evaluation of the patient at bedside, reviewing the patient's pertinent medical records
including radiographs, microbiology, laboratory evaluations, and discussion with primary team, consultants, pharmacy, nutrition, physical therapy, case management, charge nurse, critical care nursing, and respiratory therapy.
Data:
CTA Chest 03/22/2025:
1. Extensive right-sided pulmonary embolism beginning within the right main pulmonary artery and extending into right upper and lower lobar and segmental pulmonary arteries.
2. CT evidence for right heart strain.
3. Right lower lobe consolidation may reflect atelectasis, pneumonia and/or component of pulmonary infarct.
--- NOTE | 2025-03-23 08:18 | W.PN.HOSP.TC ---
Addendum entered and electronically signed by Jazmyne Mcfarland MD 03/23/25 09:47:
correction to below:
pt's recent ankle fracture and surgery was on the LEFT, NOT right.
Informed by radiology that he has DVT of the L common femoral vein, which correlates to his recent fracture and surgery
Original Note:
Today's Communication/Plan
-
see A/P
Assessment / Plan
Assessment / Plan
HPI: 85-year-old from [facility] with past medical history of hypertension, hyperlipidemia, dementia, 6 weeks status post R ankle surgery, p/w acute respiratory distress and obtundation. Patient has multiorgan dysfunction with hypoxic
respiratory failure, circulatory collapse, pulmonary embolism, pneumonia and renal failure.
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 Suspect sepsis complicated by pulmonary embolism. ECG is nonischemic. Troponin is slightly three 0.055 and BNP is 500. Pulmonary arteries and RV dilated. There is significant clot burden with extensive
right-sided pulmonary embolism and also likely right-sided pneumonia/pulmonary infarct although with a leukocytosis and recent history of cough likely pneumonia.
CT PE in the ED revealed:
1. Extensive right-sided pulmonary embolism beginning within the right main pulmonary artery and extending into right upper and lower lobar and segmental pulmonary arteries.
2. CT evidence for right heart strain.
3. Right lower lobe consolidation may reflect atelectasis, pneumonia and/or component of pulmonary infarct.
A/P:
# Acute Hypoxic respiratory failure
Intubated, cont mechanical ventilation/sedation per Karate Instructor
# Acute submassive vs massive R sided Pulmonary embolism, likely provoked from recent ankle surgery
CT noted RV strain,
Cont heparin gtt
Check echo
Check BL LE US
trend troponin, rising from 0.055 to 2.68
# RLL Pneumonia. Possible community acquired
# Likely Septic shock.
Cannot rule out aspiration
Follow blood cultures, MRSA screen
Urine Legionella/Strep Ag negative
Cont empiric IV vanc/cefepime/doxy for now
Cont pressor Levophed for septic shock
Cont IVF for septic shock
ID CS
# DU 2/2 Septic shock, likely ATN. Oliguric
# Metabolic acidosis
Cont bicarb drip
zaragoza placed, follow I/O
Follow urine culture
Nephrology consultation
Code Status- Full Code
DVT ppx: heparin drip
GI ppx: IV PPI
DW RN
updated daughter on the phone
CC time 40 min
Anticipated Discharge: > 48 hours
Subjective/Interval History
-
Date of Service: March 23, 2025
Objective Data
-
Labs:
Laboratory Results
03/22/25 03/22/25 03/22/25
20:34 20:36 22:21
WBC 22.3 H
Hgb 12.4 L
Hct 38.4 L
Plt Count 279
PT 16.0 H
INR 1.25
APTT 28.5
HCO3 15.8 L* 12.5 L*
Sodium 140
Potassium 4.7
Chloride 109 H
Carbon Dioxide 11 L*
BUN 90 H
Creatinine 4.9 H*
Glucose 190 H
Calcium 9.0
Total Bilirubin 0.8
AST 111 H
ALT 43
Alkaline Phosphatase 98
03/23/25 03/23/25 03/23/25
02:45 05:08 13:00
WBC
Hgb
Hct
Plt Count
PT
INR
APTT 143.6 H Pending
HCO3 13.6 L*
Sodium 139
Potassium 3.6
Chloride 111 H
Carbon Dioxide 13 L*
BUN 87 H
Creatinine 3.2 H
Glucose 241 H
Calcium 8.7
Total Bilirubin
AST
ALT
Alkaline Phosphatase
Vital Signs:
Vital Signs
Temp Pulse Resp BP Pulse Ox
37.2 C 92 22 129/67 95
03/23/25 07:38 03/23/25 08:00 03/23/25 08:00 03/23/25 07:45 03/23/25 08:00
I&O
03/22/25 03/23/25 03/24/25
06:59 06:59 06:59
Intake Total 1577.6 / 1732.0 320.8 / 320.8
Output Total 200 / 200 70 / 70
Balance 1377.6 / 1532.0 250.8 / 250.8
Review of Systems
-
Unable to obtain full review of systems at this time due to: Acuity and Patient Intubation
Physical Exam
-
General: Well Developed, Well Nourished and Respiratory Distress (intubated )
HEENT: Normocephalic, Atraumatic, Moist Mucous Membranes and Oxygen (intubated )
Respiratory: Clear to Auscultation and Non Labored Respirations; Negative Accessory Resp Muscle Use
Cardiac: Regular Rhythm and S1/S2
GI: Soft, Nontender and Nondistended
Rectal: Deferred by Provider
Musculoskeletal: No Clubbing, No Cyanosis, No Edema and Other (LLE in splint)
Skin: Negative Rash
Neuro: Sedated
Psych: Calm
Data Reviewed
-
CT Scan: Report Reviewed by me
Labs: Labs Reviewed by me
[2025-03-23 08:22] LABS: Lactic Acid 2.1 mmol/L (0.7-2.0)
--- NOTE | 2025-03-23 08:30 | PTCARENOTE ---
Assumed care of pt MAP>65 supported by levophed gtt, spontaneous drops in BP continue. NSR with PVCs, weak pedal pulses, pupils sluggish. weak cough, no gag. Propofol infusing for RASS -2. Restraints in place for safety. ETT 05/23 lip. AC22/550/5/40%
with SpO2 95%, diminished in bases. Blood tint sputum and bloody oral secretions. No gastric access, diarrhea continues with leakage around rectal trumpet noted. Neg for Cdiff. Navarro draining blood tinged tea colored urine. L boot remains in place.
Heparin and HCO3 gtts infusing. PICC placement ongoing.
[2025-03-23] MEDS: SUBLIMAZE 100 IV (09:37)
--- NOTE | 2025-03-23 09:44 | W.CON.NEPH ---
Consultation
-
Date/Time Consultation Requested: 03/22/25 [id number]
Date/Time Consultation Performed: 03/23/25 0930
Requesting Provider: Nii Pandey
Performing Provider: Areli Whiting
Reason for Consultation: DU
Medical History
-
Chief Complaint: SOB and unresponsive
History of Present Illness:
85-year-old male who has a past medical history of hyperlipidemia on statin, hypertension on lisinopril, dementia on Donepezil, sertraline, recent ankle fracture status post surgery 1 month ago and d/c to rehab who presented to the emergency
department in respiratory distress and unresponsive on 03/22.
Patient came in from [facility] with apparent acute onset shortness of breath as he was speaking. He had a very brief chest compression for support but did not appear to lost pulse for any significant duration. He is then intubated in ER. He
had a CT PE in the ED which revealed Extensive right-sided pulmonary embolism beginning within the right main pulmonary artery and extending into right upper and lower lobar and segmental pulmonary arteries and Right lower lobe consolidation may
reflect atelectasis, pneumonia and/or component of pulmonary infarct.
His cr also noted at 4.9, bicarb 11. baseline cr 0.9-1 in January. He received IV bicarb pushes and started on bicarb gtt. today cr at 3.2, bicarb at 13. lactic acid improved from 5.5 to 2.1.
Nephrology asked to eval DU specially contrast exposure on 03/22. He is currently sedated and intubated so history is limited. Most of the history through chart and family at bedside.
Pt has dementia baseline but able to communicate well and independent until recent fall and ankle fracture.
Past Medical History
Frontotemporal Dementia
Benign Hypertension
HLD
Social History
Tobacco: Non-Smoker
Alcohol: Occasional
Drug: None
Personal:
Living: [facility]
Family History
Family History: Not Pertinent
Allergies / Home Medications
Allergy/AdvReac Type Severity Reaction Status Date / Time
No Known Allergies Allergy Verified 03/12/17 10:20
�Medication �Instructions �Recorded �Confirmed �Type
donepezil 10 mg tablet 10 mg PO QPM 02/01/25 03/22/25 History
lisinopril 10 mg tablet 10 mg PO DAILY 02/01/25 03/22/25 History
sertraline 50 mg tablet 50 mg PO DAILY 02/01/25 03/22/25 History
simvastatin 40 mg tablet 40 mg PO QPM 02/01/25 03/22/25 History
vitamin B complex 1 tab PO DAILY 02/02/25 03/22/25 History
acetaminophen 325 mg tablet 650 mg PO Q4HPRN PRN mild 03/22/25 03/22/25 History
(Tylenol) pain/fever>100.4
bisacodyl 10 mg rectal suppository 10 mg SD [id number] PRN if no BM and 03/22/25 03/22/25 History
MOM/lactulose ineffective
ipratropium 0.5 mg-albuterol 3 mg 3 ml inhalation R Q6HPRN PRN 03/22/25 03/22/25 History
(2.5 mg base)/3 mL nebulization wheezing
soln
loperamide 2 mg tablet (Imodium 4 mg PO DAILYPRN PRN loose stool 03/22/25 03/22/25 History
A-D)
magnesium hydroxide 400 mg/5 mL 30 ml PO HSPRN PRN constipation 03/22/25 03/22/25 History
oral suspension (Milk of Magnesia)
Review of Systems
-
Unable to obtain full review of systems at this time due to: Patient Intubation
Physical Exam
Vital Signs
Vital Signs
Temp Pulse Resp BP Pulse Ox
98.9 F 92 22 129/67 95
03/23/25 07:38 03/23/25 08:00 03/23/25 08:00 03/23/25 07:45 03/23/25 08:00
Lab Results
WBC 22.3 10^3/uL (4.8-10.8) H 03/22/25 20:34
RBC 4.07 10^6/uL (4.70-6.10) L 03/22/25 20:34
Hgb 12.4 g/dL (13.0-18.0) L 03/22/25 20:34
Hct 38.4 % (39.0-52.0) L 03/22/25 20:34
Plt Count 279 10^3/uL (130-400) 03/22/25 20:34
Sodium 139 mmol/L (135-145) 03/23/25 05:08
Potassium 3.6 mmol/L (3.5-5.1) 03/23/25 05:08
Chloride 111 mmol/L (98-107) H 03/23/25 05:08
Carbon Dioxide 13 mmol/L (22-30) L* 03/23/25 05:08
BUN 87 mg/dl (9-20) H 03/23/25 05:08
Creatinine 3.2 mg/dL (0.7-1.3) H 03/23/25 05:08
eGFR 18.38 03/23/25 05:08
Glucose 241 mg/dl (70-99) H 03/23/25 05:08
Calcium 8.7 mg/dl (8.4-10.2) 03/23/25 05:08
Phosphorus 4.2 mg/dl (2.5-4.5) 03/23/25 05:08
Snx-R-Bxcjvivmfly Pept 501 pg/ml 03/22/25 20:34
Albumin 3.6 g/dl (3.5-5.0) 03/22/25 20:34
Physical Exam
General: No Distress and Other (intubated, sedated)
HEENT: Facial Symmetry and Neck Supple
Respiratory: Nonlabored Respirations and Other (intubated, decreased BS)
Cardiac: S1/S2 and Regular Rate/Rhythm
Breast: Deferred by me
Abdomen: Soft, Nontender and Nondistended
Musculoskeletal: Edema (left leg in GUIDO wrap)
Skin: No Rash
Neuro: Other (unable to assess -sedated)
Psych: Other (unable to assess -sedated)
Data Reviewed
-
Labs: Labs Reviewed by me, Discussed with Nurse and Discussed with Family
Assessment/Plan
-
IMP:
Acute Hypoxic respiratory failure
Acute submassive vs massive R sided Pulmonary embolism, likely provoked from recent ankle surgery
RLL Pneumonia. Possible community acquired
Likely Septic shock.
DU
A gap Metabolic acidosis
Dementia
HTN
HLD
Plan:
A/w acute resp failure from massive PE and also septic shock from PNA
DU-suspect prerenal, non olguric with zaragoza
cr improving with IVF, monitor cr post contrast 03/22
UA mild microhematuria post zaragoza sample
met acidosis is improving-cont bicarb IVF
Ph 7.4 with resp alkalosis, met acidosis-vent adjustment per ICU
concentrate levo gtt for hypotension, titrate for MAO>65
abx per ICU-dose renally
on heparin gtt, hematuria mild -monitor
labs later today
d/w ICU and nursing
d/w family
reviewed living will no HD
CC time spent 40min
--- NOTE | 2025-03-23 09:44 | VATNOTE ---
Per radiology report, PICC is in good position in the SVC and OK to use at this time. PCN notified, instructed PCN to change all IV tubing before connecting to the PICC and to remove all ipsilateral IVs.
--- NOTE | 2025-03-23 09:46 | PHA.VAN.IN ---
Assessment
- Assessment
Renal Function: SCR Appears Elevated from baseline (SCR 4.9-->3.2 vs ~1)
Concomitant Antimicrobials: cefepime, doxycycline
Plan
- Plan
Initial / Loading Dose: 2000mg - 03/23 01:42
Maintenance Regimen: dosing by level
Monitoring: random 03/24 06
MRSA Screen: Ordered per protocol
Pharmacokinetics Vancomycin I
- -
Patient Age: 85
Patient Sex: Male
Vancomycin Day #: 1
Indication: Pulmonary/Respiratory
Requesting Provider: Dr. Eason
Pertinent Antimicrobial Allergies:
NKDA
Height / Weight:
Height 5 ft 9.25 in
Actual Weight 86.2 kg
- Vital Signs / Lab Results
Temp Pulse Resp BP Pulse Ox
98.9 F 92 22 129/67 95
03/23/25 07:38 03/23/25 08:00 03/23/25 08:00 03/23/25 07:45 03/23/25 08:00
Lab Results - Hematology
03/22/25
20:34
WBC 22.3 H
Lab Results - Chemistry
03/22/25 03/23/25
20:34 05:08
BUN 90 H 87 H
Creatinine 4.9 H* 3.2 H
Estimated Creat Clear 17
Albumin 3.6
03/22/25 03/22/25 03/23/25
20:34 23:57 02:45
Lactic Acid 5.5 H* 4.1 H* 2.5 H
03/23/25
07:53
Lactic Acid 2.1 H
Lab Results - Urine
03/22/25 03/23/25
21:20 00:46
Urine Nitrite Cancelled
Urine Nitrite (Reflex) Negative Negative
Ur Leukocyte Esterase Cancelled
Leukocyte Esterase Rfl Negative 2+ A
Urine WBC (Reflex) 3-5 16-20 A
Ur Squamous Epith Cells 3-5 None seen
Urine Bacteria (Reflex) Few A
Microbiology Results
03/23/25 02:41 C. difficile GDH Antigen & Toxins - Final
Feces/Stool Negative for toxigenic C.difficile
03/22/25 21:20 Legionella Urinary Antigen - Final
Urine Negative for Legionella pneumophila Serogroup 1 antigen.
A negative result does not rule out the possiblity of
Legionella infection due to other serogroups or species of
Legionella. Clinical correlation is recommended.
Streptococcus pneumoniae Antigen (M - Final
Negative for Streptococcus pneumoniae antigen.
A negative result does not exclude infection with
Streptococcus pneumoniae. Clinical correlation is
recommended.
[2025-03-23] MEDS: STERILE WATER FOR INJECTION 10 ML IV ×2 (09:51→21:24)
[2025-03-23] MEDS: MAXIPIME 1000 MG IV ×2 (09:51→21:24)
[2025-03-23] MEDS: NSS (PRESERVATIVE FREE) 10 ML IV (09:51)
[2025-03-23] MEDS: PROTONIX IV 40 MG IV (09:51)
[2025-03-23] MEDS: HEPARIN 25000 UNITS/250 ML IV (10:14)
--- NOTE | 2025-03-23 11:30 | PTCARENOTE ---
BLE u/s completed, Echocardiogram completed. PICC placed, all IV tubing changed and gtts moved to PICC. Periph IVs removed on PICC arm. Fentanyl gtt started and propofol weaned as tolerated. Unsuccessful attempt to wean levophed due to labile
arterial BPs.
[2025-03-23 12:01] LABS: Lactic Acid 1.6 mmol/L (0.7-2.0)
--- NOTE | 2025-03-23 12:46 | CM ---
Patient intubated. Patient was at [facility] for STR. Readmitted to for respiratory distress. Initial assessment completed with and daughter. Patient lives with his in a 2 story plus basement home with B/B on 2nd and 1/2 bath on
1st with 1 step to enter. 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 assists. Does not drive. DME is a SPC and a RW which he uses occasionally. There is a chair lift to the 2nd floor. No in-home services. Patient does have a HC-POA. No
service. Support system is , daughter and son. PCP is Dr. Doc Madera and Pharmacy is [facility] in . Discharge POC: TBD based on medical progression. Family prefers patient return home instead of returning to STR.
[2025-03-23] MEDS: LEVOPHED 258 MG IV ×2 (12:55→17:36)
[2025-03-23] MEDS: NSS 1000 IV (12:55)
--- NOTE | 2025-03-23 13:54 | CON.ID ---
Consultation
-
Date/Time Consultation Requested: March 23, 2025 0833
Date/Time Consultation Performed: March 23, 2025 1400
Requesting Provider: Dr. Ambika Mcfarland
Performing Provider: Dr. Jazmin Cope
Reason for Consultation: Pneumonia
Chief Complaint / Past History
History of Present Illness
85-year-old male with advanced dementia recently hospitalized from February 01 to February 07 with left ankle fracture after a fall status post ORIF and discharged to rehab who presented to the ER March 22 due to acute respiratory distress and change in mental
status. at bedside helps provide history. Per patient had a cast on and was not able to put weight and therefore not very mobile while at rehab. The cast did come off and he was supposed to get a follow-up x-ray to assess for bone
healing. He did have mild cough past week. Yesterday had acute onset of shortness of breath. He then became unresponsive. He was hypoxic. In ED WBC count 22.3, lactic acid 5.5, blood pressure 48/34, acute kidney injury, elevated troponin. CT
of the chest showed extensive right-sided PE with right lower lobe consolidation. Venous ultrasound showed left DVT. Patient is currently intubated and on pressor. He is on cefepime, doxycycline, and vancomycin.
Past History
Additional Past Medical History:
Mild frontotemporal dementia
Hypertension
HLD
Left ankle fracture ORIF February 02, 2025
Allergy History:
No Known Allergies Allergy (Verified 03/12/17 10:20)
Medications Reviewed: Yes
Current Antibiotics:
Cefepime
Vancomycin
doxycycline
Social History
Tobacco: Non-Smoker
Alcohol: Occasional
Drug: None
Personal:
Living: [facility]
Family History
Family History: Not Pertinent
Review of Systems
Review of Systems
Unable to obtain as patient currently intubated and sedated.
Vital Signs
Temp Pulse Resp BP Pulse Ox
98.9 F 87 18 129/67 95
03/23/25 11:25 03/23/25 11:24 03/23/25 11:24 03/23/25 07:45 03/23/25 12:00
Physical Exam
Physical Exam
Constitutional: Acutely Ill
Eyes: No Conjunctival Hemorrhage and Sclera Anicteric
Cardiovascular: Regular Rate
Pulmonary: Clear (Anterior lungs)
Gastrointestinal: Soft, Non Tender, Non Distended and Normal Bowel Sounds
Genito-Urinary: Navarro and Clear Urine
Extremities: Other (Left lower extremity with immobilizer)
Neurological: Other (Sedated)
Lab / Diagnostic Study Results
03/22/25 20:34
03/23/25 05:08
Abs Immat Gran (auto) 0.4 10^3/uL (0-0.05) H 03/22/25 20:34
Absolute Neuts (auto) 16.4 10^3/uL (1.4-6.5) H 03/22/25 20:34
Absolute Lymphs (auto) 4.3 10^3/uL (1.2-3.4) H 03/22/25 20:34
Absolute Monos (auto) 1.1 10^3/uL (0.1-0.6) H 03/22/25 20:34
Absolute Basos (auto) 0.1 10^3/uL (0-0.2) 03/22/25 20:34
Immature Gran % 1.6 % (0-0.5) H 03/22/25 20:34
Neutrophils % 73.5 % (42.2-75.2) 03/22/25 20:34
Lymphocytes % 19.3 % (20.5-51.1) L 03/22/25 20:34
Monocytes % 5.0 % (1.7-9.3) 03/22/25 20:34
Eosinophils % 0.2 % (0-6) 03/22/25 20:34
Basophils % 0.4 % (0-2) 03/22/25 20:34
PT 16.0 Sec (11.4-14.6) H 03/22/25 20:34
INR 1.25 03/22/25 20:34
Lactic Acid 1.6 mmol/L (0.7-2.0) 03/23/25 11:38
Ur Squamous Epith Cells None seen /LPF (Few) 03/23/25 00:46
Microbiology Results
Micro:
03/22/25 23:42 MRSA Screen - Pending
Nose
03/22/25 23:42 Nasal Screen MRSA (PCR) - Final
Nose
03/23/25 02:41 C. difficile GDH Antigen & Toxins - Final
Feces/Stool Negative for toxigenic C.difficile
03/22/25 21:20 Legionella Urinary Antigen - Final
Urine Negative for Legionella pneumophila Serogroup 1 antigen.
A negative result does not rule out the possiblity of
Legionella infection due to other serogroups or species of
Legionella. Clinical correlation is recommended.
Streptococcus pneumoniae Antigen (M - Final
Negative for Streptococcus pneumoniae antigen.
A negative result does not exclude infection with
Streptococcus pneumoniae. Clinical correlation is
recommended.
03/23/25 00:46 Urine Culture - Pending
Urine
03/23/25 00:03 Blood Culture - Pending
Blood/Venous
03/22/25 23:57 Blood Culture - Pending
Blood/Venous
03/22/25 CT Chest: Extensive right-sided pulmonary embolism beginning within the right main pulmonary artery and extending into right upper and lower lobar and segmental pulmonary arteries.
03/23/25 Perip Vasc US: There is occlusive and nonocclusive thrombus within the left common femoral and proximal/mid femoral veins.
Assessment / Plan
# Massive/submassive right-sided PE
# Left lower extremity acute DVT, ( recent right ankle ORIF)
# Shock with multisystem organ failure
# Acute hypoxic respiratory failure, intubated
# DU
# Elevated troponins
- Suspect right lung pulmonary infarct over pneumonia
- Can check sputum culture
- Follow blood cultures
- Discontinue doxycycline.
- If culture data negative, discontinue empiric vancomycin and cefepime.
- Continue ICU support
- Prognosis guarded
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
Mild frontotemporal dementia
Hypertension
HLD
Left ankle fracture ORIF February 02, 2025
[2025-03-23 15:24] LABS: Blood Urea Nitrogen 82 mg/dl (9-20); Calcium 8.1 mg/dl (8.4-10.2); Carbon Dioxide 19 mmol/L (22-30); Chloride 111 mmol/L (98-107); Estimated Creatinine Clearance 20 ml/min; Glucose 149 mg/dl (70-99); Potassium 3.1 mmol/L (3.5-5.1); Sodium 138 mmol/L (135-145); Triglycerides 134 mg/dl (10-149); eGFR 21.57
--- NOTE | 2025-03-23 16:11 | CON.CAR ---
Addendum entered and electronically signed by Murali Nicholas MD 03/23/25 18:44:
I saw and examined the patient.
The Associate Software Application Engineer's note was reviewed and I agree with the note.
Comment:
GEN: No distress, intubated/sedated
HEENT: supple, anicteric, mmm
LUNGS: scatt rhochi
CV: Reg, tachy, S1/S2, 1/6 syst LSB, no gallop
ABD: soft, BS+, NT/ND
EXT: No edema
NEURO: Gross non-focal
SKIN: No rash
Plan:
85-year-old male with past medical history of hypertension, dementia, hyperlipidemia status post right ankle surgery 6 weeks ago presents with change in mental status, respiratory failure, hypotension, and pulmonary embolism. He has had a
progressive decline with worsening renal and respiratory status. Ultimately he presented to the emergency room where CT scan revealed extensive right-sided pulmonary embolism in the right main pulmonary artery and right upper and lower arteries.
Cardiac troponin was abnormal at 2.6 and increasing to 10.9. We were asked to evaluate his abnormal troponin in the setting of large pulmonary embolism.
Echocardiogram was performed which revealed LVEF of 60 to 70%, moderately dilated right ventricle with moderate RV hypokinesis, PA pressure of 35. There were no left ventricular wall motion abnormalities.
Abnormal troponin is likely due to large pulmonary embolism with RV strain. The right ventricle does have significant hypokinesis.
Continue IV heparin and supportive care with ventilation. Continue Levophed for blood pressure support with vasopressin.
Creatinine overall improved and down to 2.8. Will continue gentle hydration with bicarb. Acidosis is improving.
Continue antibiotics for possible sepsis. Hopefully his multiorgan system failure continues to slowly improve.
Discussed with family at length. Continue supportive care.
Original Note:
Consultation
Consultation Request
Date/Time Consultation Performed: 03/23/25
Requesting Provider: Dr. Mcfarland
Performing Provider: Veena Vizcaino PA-C for Dr. Nicholas
Reason for Consultation: elevated troponin
Medical History
-
Chief Complaint: SOB
History of Present Illness:
Patient is an 85 yo M with PMH of HTN, HLD, dementia, fall with L bimalleolar fracture s/p repair 02/02/25. He was discharged to SNF with non weight bearing precautions. reports he has been sedentary since then and he was scheduled for his Xray
today to assess if he was ok to start weight bearing however was not able to make it to appt. has noted over the last week that he has not been eating or drinking and then today was noted to be SOB. He was given a neb and placed on supp O2.
Upon arrival to ER noted to be critically ill and required urgent intubation. He transiently lost his pulse and briefly got CPR, epi, bicarb, and started on levo. Initial trop 0.055 and trending up, most recent 9.67.
PMH:
Fall with L bimalleolar fracture status post repair 02/02/2025
Hypertension
Hyperlipidemia
Dementia
Past Medical History
Past Medical History: Other (in HPI)
Social History
Tobacco: Non-Smoker
Alcohol: Occasional
Personal:
Living: With Family (until recently, has been at SNF since admission 01/2025)
Family History
Family History: Unable to Obtain (intubated)
Allergies / Home Medications
Allergy/AdvReac Type Severity Reaction Status Date / Time
No Known Allergies Allergy Verified 03/12/17 10:20
�Medication �Instructions �Recorded �Confirmed �Type
donepezil 10 mg tablet 10 mg PO QPM Neurological Condition 02/01/25 03/22/25 History
lisinopril 10 mg tablet 10 mg PO DAILY Blood Pressure 02/01/25 03/22/25 History
sertraline 50 mg tablet 50 mg PO DAILY Mental 02/01/25 03/22/25 History
Health/Anxiety
simvastatin 40 mg tablet 40 mg PO QPM High Cholesterol 02/01/25 03/22/25 History
vitamin B complex 1 tab PO DAILY Supplement 02/02/25 03/22/25 History
acetaminophen 325 mg tablet 650 mg PO Q4HPRN PRN mild 03/22/25 03/22/25 History
(Tylenol) pain/fever>100.4
bisacodyl 10 mg rectal suppository 10 mg NC [id number] PRN if no BM and 03/22/25 03/22/25 History
MOM/lactulose ineffective
ipratropium 0.5 mg-albuterol 3 mg 3 ml inhalation R Q6HPRN PRN 03/22/25 03/22/25 History
(2.5 mg base)/3 mL nebulization wheezing
soln
loperamide 2 mg tablet (Imodium 4 mg PO DAILYPRN PRN loose stool 03/22/25 03/22/25 History
A-D)
magnesium hydroxide 400 mg/5 mL 30 ml PO HSPRN PRN constipation 03/22/25 03/22/25 History
oral suspension (Milk of Magnesia)
Review of Systems
-
Unable to obtain full review of systems at this time due to: Patient Intubation
Physical Exam
Vital Signs
Temp Pulse Resp BP Pulse Ox
97.8 F 90 18 129/67 98
03/23/25 15:41 03/23/25 15:35 03/23/25 15:35 03/23/25 07:45 03/23/25 15:35
Lab Results
03/22/25 20:34
03/23/25 14:47
Troponin I Cancelled 03/23/25 16:00
Xzk-S-Ylpqmuzbbwb Pept 501 pg/ml 03/22/25 20:34
Physical Exam
General: Intubated
HEENT: Normocephalic, Anicteric and Moist Mucous Membranes
Respiratory: Clear and Non Labored Respirations
Cardiac: S1/S2 and Regular Rhythm
GI: Soft, Non Tender, Non Distended and Normal Bowel Sounds
Musculoskeletal: No Clubbing, No Cyanosis and Edema (LLE)
Skin: Warm and Dry
Neuro: Sedated
Impression / Plan
-
[facility]: none prior to admission
Assessment:
Presentation with SOB, respiratory distress
Acute hypoxic respiratory failure, intubated urgently in ER 03/23/25
Transient loss of pulse requiring CPR, epi
Submassive R PE, provoked
LLE DVT
Septic shock
Concern for R PNA
R heart strain by echo consistent with PE as above
Elevated troponin
ARF, improving
Fall with L bimalleolar fracture status post repair 02/02/2025
Hypertension
Hyperlipidemia
Dementia
ECHO 03/23/25: EF 65 to 70%, no regional wall motion abnormalities noted, moderately enlarged RV size with moderate hypokinesis of right ventricle, dilated RA, mild TR, PAP 35 mmHg
Plan:
- Patient presents with shortness of breath and respiratory distress requiring urgent intubation in ER, also with transient loss of pulse requiring brief CPR and epi administration. Found to have submassive right PE and left lower extremity DVT,
provoked in the setting of recent left ankle fracture status postrepair 01/2025
- Critically ill
- He is currently intubated and sedated
- Requiring levo at 22
- Cardiology consulted as troponin noted to be uptrending, most recent 9.6.
- Echo with results as above, preserved EF with evidence of right heart strain likely secondary to submassive PE
- Trend troponin to peak
- EKG 03/[address] abnormalities
- reportedly no plans for lytic therapy. Continue IV heparin. Eventual transition to DOAC
- check CVE
- may require eventual ischemic evaluation once recovered
- currently full code. patient's at bedside asking about patient prognosis and when appropriate to consider level of care change. we discussed his prognosis remains guarded but will assess clinical progress over next 24-48 hours
- d/w nursing
Data Reviewed
-
EKG: Tracing Personally Visualized and interpreted
CT Scan: Report Reviewed by me
Ultrasound: Report Reviewed by me
Medical Tests (Nuc Med, Echo etc): Report Reviewed by me
Labs: Labs Reviewed by me
Old Records: Reviewed
[2025-03-23] MEDS: KCL 100 IV (16:20)
[2025-03-23 16:38] LABS: B.E. -4.7 mmol/L; PCO2 30 mmHg (35-48); PO2 130 mmHg (83-108); pH 7.41 (7.35-7.45)
[2025-03-23] MEDS: PITRESSIN 100 IV (16:58)
--- NOTE | 2025-03-23 17:03 | PTCARENOTE ---
Vasopressin added as ordered. Assessment unchanged. ABG drawn and HCO3 gtt ordered to continue. Family remains at bedside. Cardiology rounded-see note.
[2025-03-23] MEDS: NOVOLOG FLEXPEN-LOW RESISTANCE SC (17:08)
[2025-03-23 17:13] LABS: Glucose - Point of Care 145 mg/dl (70-99)
[2025-03-23 17:34] LABS: HDL Cholesterol 36 mg/dl; Total Cholesterol 111 mg/dl (50-199)
[2025-03-23 19:01] LABS: LDL Cholesterol, Calculated 49 mg/dl; Triglyceride 134 mg/dl (10-149); Very Low Density Lipoprotein 26 mg/dl (0-30)
--- NOTE | 2025-03-23 20:00 | PTCARENOTE ---
rec`d pt at 1900 intubated and sedated. + cough. PERRLA at a 3mm. restraints. SR on monitor. afebrile. pvcs. repleating k. 8.0 ETT @25 on right. dim/ coarse lung sounds. vent settings 18/450/40%/5 of peep. POX 95%. rectal trumpet. temp sensing
zaragoza. tea color. 30-50cc/hr. lip scabbed. left foot continued with boot and rodriguez bandage. rt radial a line. PIVS flushed and patent. left D luman PICC with d/c levo, vaso, heparin, prop and fent. rt PIV w/ bicarb. family at bedside. safe environment
maintained. q2h turns continued.
[2025-03-23 21:31] LABS: APTT 110.4 Sec (23.4-35.0)
[2025-03-23 22:14] LABS: Blood Urea Nitrogen 80 mg/dl (9-20); Calcium 7.8 mg/dl (8.4-10.2); Carbon Dioxide 18 mmol/L (22-30); Chloride 111 mmol/L (98-107); Estimated Creatinine Clearance 23 ml/min; Glucose 158 mg/dl (70-99); Potassium 3.8 mmol/L (3.5-5.1); Sodium 137 mmol/L (135-145); eGFR 25.96
[2025-03-23] MEDS: KCL 50 IV (22:29)
[2025-03-23 23:54] LABS: Glucose - Point of Care 173 mg/dl (70-99)
[2025-03-24] MEDS: NOVOLOG FLEXPEN-LOW RESISTANCE 1 UNITS SC (00:12)
[2025-03-24] MEDS: DIPRIVAN 100 IV (01:41)
[2025-03-24] MEDS: PITRESSIN 100 IV ×2 (01:47→13:09)
[2025-03-24] MEDS: SUBLIMAZE 100 IV (01:49)
[2025-03-24 02:22] LABS: HCO3 19.9 mmol/L (21-28); O2 Saturation % 99.9 % (94-98); PCO2 28 mmHg (35-48); PO2 119 mmHg (83-108); pH 7.46 (7.35-7.45)
[2025-03-24 02:43] LABS: % Basophils 0.4 % (0-2); % Eosinophils 0.9 % (0-6); % Immature Granulocytes 2.1 % (0-0.5); % Lymphocytes 9.5 % (20.5-51.1); % Monocytes 6.6 % (1.7-9.3); % Neutrophils 80.5 % (42.2-75.2); Absolute Basophils 0.1 10^3/uL (0-0.2); Absolute Eosinophils 0.1 10^3/uL (0-0.7); Absolute Immature Granulocytes 0.3 10^3/uL (0-0.05); Absolute Lymphocytes 1.1 10^3/uL (1.2-3.4); Absolute Monocytes 0.8 10^3/uL (0.1-0.6); Absolute Neutrophils 9.4 10^3/uL (1.4-6.5); Hemoglobin 10.2 g/dL (13.0-18.0); Mean Corp Hgb Conc. 35.2 g/dL (33.0-37.0); Mean Corpuscular Hgb 30.7 pg (27.0-31.0); Mean Corpuscular Volume 87.3 fL (80.0-94.0); Mean Platelet Volume 10.2 fL (7.4-10.4); Nucleated Red Blood Cells % 0 % (-); Platelet Count 221 10^3/uL (130-400); Red Blood Cell Count 3.32 10^6/uL (4.70-6.10); Red Cell Dist. Width 13.2 % (11.5-14.5); White Blood Cell Count 11.7 10^3/uL (4.8-10.8)
--- NOTE | 2025-03-24 02:48 | PTCARENOTE ---
pt reassessed. no changes in pt assessment. safe environment maintained. levo titrated per protocol.
[2025-03-24 02:57] LABS: Vancomycin Random 13.1 ug/ml
[2025-03-24] MEDS: LEVOPHED 258 MG IV ×2 (03:36→21:51)
[2025-03-24 03:40] LABS: ALT (SGPT) 1077 U/L (0-50); AST (SGOT) 1133 U/L (17-59); Albumin 2.4 g/dl (3.5-5.0); Alkaline Phosphatase 103 U/L (38-126); Blood Urea Nitrogen 75 mg/dl (9-20); Calcium 7.6 mg/dl (8.4-10.2); Carbon Dioxide 19 mmol/L (22-30); Chloride 113 mmol/L (98-107); Estimated Creatinine Clearance 25 ml/min; Glucose 146 mg/dl (70-99); Magnesium 1.9 mg/dl (1.6-2.3); Potassium 3.8 mmol/L (3.5-5.1); Sodium 138 mmol/L (135-145); Total Bilirubin 0.7 mg/dl (0.2-1.3); Total Protein 4.8 g/dl (6.3-8.2); eGFR 28.81
[2025-03-24] MEDS: SUBLIMAZE 50 MCG IV (04:44)
[2025-03-24 05:05] VITALS: BMI 29.3
[2025-03-24] MEDS: KCL 100 IV (05:08)
[2025-03-24] MEDS: NOVOLOG FLEXPEN-LOW RESISTANCE SC ×3 (05:51→17:54)
[2025-03-24 06:01] LABS: Glucose - Point of Care 132 mg/dl (70-99)
[2025-03-24] MEDS: MIRALAX TUBE (07:06)
[2025-03-24] MEDS: DUONEB 3 ML INH ×4 (07:21→20:48)
--- NOTE | 2025-03-24 07:57 | W.PN.HOSP.TC ---
Addendum entered and electronically signed by Jazmyne Mcfarland MD 03/24/25 12:38:
#Acute Pulmonary embolism with cor pulmonale
Original Note:
Today's Communication/Plan
-
see A/P
Assessment / Plan
Assessment / Plan
HPI: 85-year-old from [facility] with past medical history of hypertension, hyperlipidemia, dementia, 6 weeks status post left ankle surgery, p/w acute respiratory distress and obtundation. Patient has multiorgan dysfunction with hypoxic
respiratory failure, circulatory collapse, pulmonary embolism, pneumonia and renal failure.
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 Suspect sepsis complicated by pulmonary embolism. ECG is nonischemic. Troponin is slightly three 0.055 and BNP is 500. Pulmonary arteries and RV dilated. There is significant clot burden with extensive
right-sided pulmonary embolism and also likely right-sided pneumonia/pulmonary infarct although with a leukocytosis and recent history of cough likely pneumonia.
CT PE in the ED revealed:
1. Extensive right-sided pulmonary embolism beginning within the right main pulmonary artery and extending into right upper and lower lobar and segmental pulmonary arteries.
2. CT evidence for right heart strain.
3. Right lower lobe consolidation may reflect atelectasis, pneumonia and/or component of pulmonary infarct.
A/P:
# Acute hypoxic respiratory failure
Intubated,
cont mechanical ventilation/sedation per Seed Potato Cutter
# Acute submassive vs massive R sided Pulmonary embolism, likely provoked from recent L ankle surgery
CT noted RV strain,
Echo with EF 65-70%, and Moderately enlarged right ventricular size with moderate hypokinesis of right ventricle. Dilated right atrium. Estimated pulmonary artery pressure of 35 mmHg
US also revealed occlusive and nonocclusive thrombus within the left common femoral and proximal/mid femoral veins.
Cont heparin gtt
# Elevated trop 2/2 non-MN from acute PE/RV strain vs demand ischemia
Troponin peaked at 10.9
Echo as above
Card on board
# RLL Pneumonia. Possible community acquired
# Likely Septic shock
Cannot rule out aspiration
blood cultures so far negative, MRSA screen negative
Urine Legionella/Strep Ag negative
Cont empiric IV vanc/cefepime
Cont pressors Levophed and added vasopressin for septic shock
Cont IVF for septic shock
Eventual SPL eval when extubated and able
ID on board
# DU 2/2 Septic shock, likely ATN. Oliguric
# Metabolic acidosis
SCr 4.9-> 2.2 today; baseline 1.0
Cont bicarb drip
zaragoza placed, follow I/O
urine culture no growth
Nephrology on board
# Shocked liver
LFT trending upward
Cont to monitor
Code Status- Full Code
DVT ppx: heparin drip
GI ppx: IV PPI
CC time 40 min
Anticipated Discharge: > 48 hours
Subjective/Interval History
-
Date of Service: March 24, 2025
Objective Data
-
Labs:
Laboratory Results
03/23/25 03/24/25 03/24/25
21:09 02:06 09:00
WBC 11.7 H
Hgb 10.2 L
Hct 29.0 L
Plt Count 221 D
APTT 110.4 H 124.0 H Pending
HCO3 19.9 L
Sodium 137 138
Potassium 3.8 3.8
Chloride 111 H 113 H
Carbon Dioxide 18 L 19 L
BUN 80 H 75 H
Creatinine 2.4 H 2.2 H
Glucose 158 H 146 H
Calcium 7.8 L 7.6 L
Total Bilirubin 0.7
AST 1133 H*
ALT 1077 H*
Alkaline Phosphatase 103
Vital Signs:
Vital Signs
Temp Pulse Resp BP Pulse Ox
37.2 C 84 18 129/67 98
03/24/25 03:12 03/24/25 07:22 03/24/25 07:22 03/23/25 07:45 03/24/25 07:51
I&O
03/23/25 03/24/25 03/25/25
06:59 06:59 06:59
Intake Total 1577.6 / 1732.0 4418.7 / 4529.2 221.0 / 221.0
Output Total 200 / 200 990 / 1090 115 / 115
Balance 1377.6 / 1532.0 3428.7 / 3439.2 106.0 / 106.0
Review of Systems
-
Unable to obtain full review of systems at this time due to: Acuity and Patient Intubation
Physical Exam
-
General: Well Developed, Well Nourished and Respiratory Distress (intubated )
HEENT: Normocephalic, Atraumatic, Moist Mucous Membranes and Oxygen (intubated )
Respiratory: Clear to Auscultation and Non Labored Respirations; Negative Accessory Resp Muscle Use
Cardiac: Regular Rhythm and S1/S2
GI: Soft, Nontender and Nondistended
Rectal: Deferred by Provider
Musculoskeletal: No Clubbing, No Cyanosis, No Edema and Other (LLE in splint)
Skin: Negative Rash
Neuro: Sedated
Psych: Calm
Data Reviewed
-
CT Scan: Report Reviewed by me
Labs: Labs Reviewed by me
--- NOTE | 2025-03-24 08:10 | W.PN.INTV ---
Today's Communication / Plan
Recommendations
Mechanical ventilation
Keep off sedation if possible to help assess mental status
If he does not awaken more then consider rechecking CT head versus MRI brain
Stop bicarb drip
Abx
Follow up cultures
Trend serum creatinine; nephrology on board and recs appreciated
Code status discussed today and he is now DNR but okay to continue mechanical ventilation
Guarded prognosis
Continue ICU level of care for this critically ill patient
Assessment
-
Assessment: 85-year-old male with a past medical history of frontotemporal dementia, hypertension and hyperlipidemia who presented with unresponsiveness. Patient lives in [facility]. In the ER he was short of breath, given nebulizers and
then became obtunded, was emergently intubated, then became bradycardic with loss of pulse. CPR performed immediately, epinephrine + bicarb, calcium given with ROSC obtained. Levophed started as well. CT head obtained showing no acute
intracranial abnormality, and CTA of the chest obtained showing a right sided pulmonary embolism with RV strain, as well as a right lower lobe pneumonia. PERT alert called. Other labs that were significant were metabolic acidosis with serum
bicarbonate level 11, creatinine 4.9 (baseline 0.9), lactate 4.1, troponin 0.055, proBNP 501, pH 7.20, pCO2 32, INR 1.25, Hb 12.4 and WBC 22.3. Given that the patient's pulmonary embolism clot burden was not significant and given his multiorgan
failure with DU, with pneumonia and acidosis, he was not considered a thrombolytic candidate. He was transferred to the ICU for further care and metal temperer services consulted for additional management/recommendations.
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
Impression:
#Acute respiratory failure with hypoxia on mechanical ventilation (intubated 03/18/2025)
#In-hospital cardiac arrest (occurred post-intubation, preceded by bradycardia, with ROSC obtained after epi + bicarb - this was likely PEA as no shock was administered)
#Circulatory shock due to sepsis + acidosis in the setting of a right-sided PE
#Acute right-sided PE with RV strain
#Left-sided DVT involving common femoral + proximal/mid femoral veins
#Pulmonary hypertension due to above (possibly in the setting of chronic PH)
#Right lower lobe pneumonia
#DU
#Anemia
#Hyperglycemia (HbA1c: 6 on 03/23/2025)
#Elevated troponin (likely demand ischemia in the setting of recent CPR)
#Metabolic acidosis with increased anion gap
#Lactic acidosis
#Recent left trimalleolar ankle fracture s/p ORIF, plate and screw fixation, with syndesmotic fixation and stress exam under anesthesia.
Plan:
- Patient is hypoxic due to multiple factors, including pneumonia, sepsis with acute organ dysfunction and an acute PE
- His pulmonary embolism is of moderate clot burden and is not entirely responsible for his shock state
- This is why he did not go for catheter directed thrombolysis versus embolectomy after his PERT alert on admission
- Continue with heparin drip
- Echo performed on 03/23/2025 shows a moderately enlarged RV with moderate hypokinesis of the RV with a dilated RA, PASP 35 mmHg, and preserved LVEF at 65-70% with no regional WMA
- Lower extremity duplex shows a left-sided DVT involving his common femoral + proximal/mid femoral veins, with no DVT on the right
- If he survives this hospitalization, he should follow-up with hematology as an outpatient
- Continue with mechanical ventilation with daily SAT/SBT if clinically appropriate
- Maintain plateau pressure <30 and titrate FiO2 + PEEP to keep SpO2 >90-94%
- Continue aspiration precautions; keep HOB >30-45�
- prn nebulized bronchodilators - not currently bronchospastic
- Oropharyngeal + deep ETT suctioning with subglottic as needed
- Daily CXR + blood gas
- Daily vent adjustments as needed based on blood gas and SaO2
- Low level of sedation with goal RASS as 0 to -2
- Continue antibiotics with cefepime/IV vancomycin s/p doxy x 2 doses
- Continue DuoNebs
- Follow up sputum culture from ETT; follow-up urine culture + blood cultures; MRSA screen is negative - -> DC vanc; urine antigens for Legionella + strep pneumonia both negative
- Trend WBC and monitor fever curve
- Maintain MAP>65
- Continue vasopressors with levo and vaso, and if Levophed requirements continue to increase then would add Morales-Synephrine
- Random cortisol level is 56.3 --> no need for stress dose steroids
- Renally dose all meds/Abx
- Trend UOP; nephrology on board and recs appreciated
- Trend serum HCO3 level; stop bicarb gtt
- Can stop trending troponin level as it peaked at 10.9 on 03/23/2025
- Replete electrolytes with K>4, Mg>2
- Maintain euglycemia with goal BG 140-180; start ISS; HbA1c: 6 on 03/23/2025
- Trend H/H and transfuse if needed to keep Hb>7-8g/dL; keep plt>20k, unless there is concern for bleeding then keep plt>50k
- Stress ulcer ppx
- Early nutrition if appropriate (i.e. if vasopressor requirements are low) - insert DHT today and start TF
- DVT ppx: heparin gtt
- Guarded prognosis - the patient's daughter and were updated and all questions were answered. They did say that if the patient were to continue to deteriorate, that they would likely discuss withdrawing care at that time. They think that few
days ago GLOST TILE SORTER when he was not doing as well, not eating as much, that this was the patient basically getting ready/prepared to .
Code status: Discussed code status with the and daughter today, and they have agreed to make DNR, but continue with mechanical ventilation for now
Continue ICU level care for this critically ill patient.
Critical care statement: A total of 37 minutes of critical care time was provided for this patient today. This includes management of unstable vital signs, evaluation of the patient at bedside, reviewing the patient's pertinent medical records
including radiographs, microbiology, laboratory evaluations, and discussion with primary team, consultants, pharmacy, nutrition, physical therapy, case management, charge nurse, critical care nursing, and respiratory therapy.
Data:
CTA Chest 03/22/2025:
1. Extensive right-sided pulmonary embolism beginning within the right main pulmonary artery and extending into right upper and lower lobar and segmental pulmonary arteries.
2. CT evidence for right heart strain.
3. Right lower lobe consolidation may reflect atelectasis, pneumonia and/or component of pulmonary infarct.
Transthoracic echocardiogram 03/23/2025:
Left ventricle is small in size with mild to moderate concentric left
ventricular hypertrophy. Normal left ventricular systolic function. No regional
wall motion abnormalities are seen. LV ejection fraction is 65-70% by Finnegan's
method of discs.
Moderately enlarged right ventricular size with moderate hypokinesis of right
ventricle.
Dilated right atrium.
Mild tricuspid regurgitation. Estimated pulmonary artery pressure of 35 mmHg
assuming a right atrial pressure of 15 mmHg.
Thickened mitral valve leaflets with mild mitral regurgitation.
No prior study available for comparison.
Subjective Dataa
Subjective Data
Date of Service:
Date of Service: March 24, 2025
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
Subjective:
Patient seen and evaluated this morning. Remains intubated. Off sedation since this morning. Currently intubated on AC/CMV at 18/450/5/40%, with PIP 19 cmH2O, VTe 429 mL and breathing at 18 breaths/min. Heart rate currently 72, BP 136/54
currently on Levophed 9 mcg/min. SpO2 97%. Spoke to the and daughter today and answered all thier questions.
Review of Systems
General: Other (Unobtainable as patient intubated)
Objective Data
Data Reviewed
Vital Signs / I&O / Oxygen:
Vital Signs
Temp Pulse Resp BP Pulse Ox
99.2 F 71 18 129/67 96
03/24/25 07:57 03/24/25 08:30 03/24/25 08:30 03/23/25 07:45 03/24/25 08:30
Intake and Output
03/23/25 03/24/25 03/25/25
06:59 06:59 06:59
Intake Total 1577.6 / 1732.0 4418.7 / 4529.2 331.5 / 331.5
Output Total 200 / 200 990 / 1090 140 / 140
Balance 1377.6 / 1532.0 3428.7 / 3439.2 191.5 / 191.5
SaO2 [A/C] 98
SaO2 96
Physical Exam
General: Respiratory Distress (negative), Comfortable, Chills (negative) and Sweats (negative)
HEENT: Normocephalic, Anicteric and Other (ETT in place)
Cardiovascular: S1-S2 and Peripheral Edema (negative)
Respiratory: Wheeze (negative), Crackles (negative), Rhonchi (negative), Non-Labored Respirations and ET Tube (Mechanical breath sounds heard bilaterally)
GI: Soft, Non Distended, Non Tender and Normal Bowel Sounds
Neurology: Tremors (negative) and Other (Stuporous)
Skin: Warm, Dry, Cyanosis (negative) and Jaundice (negative)
Labs/Micro/Reports
Lab Data
03/24/25 02:06
03/24/25 02:06
Laboratory Results
03/23/25 03/23/25 03/23/25
12:53 16:28 21:09
APTT 117.0 H 110.4 H
pH 7.41
pCO2 30 L
pO2 130 H
HCO3 19.0 L
O2 Delivery Level
03/24/25
02:06
APTT 124.0 H
pH 7.46 H
pCO2 28 L
pO2 119 H
HCO3 19.9 L
O2 Delivery Level
Microbiology
03/23/25 00:46 Urine Urine Culture - Final
NO GROWTH
03/22/25 23:42 Nose MRSA Screen - Final
No Methicillin Resistant Staphylococcus aureus isolated.
03/23/25 00:03 Blood/Venous Blood Culture - Preliminary
No Growth in 24 hours- Final report to follow
03/22/25 23:57 Blood/Venous Blood Culture - Preliminary
No Growth in 24 hours- Final report to follow
03/22/25 23:42 Nose Nasal Screen MRSA (PCR) - Final
03/23/25 02:41 Feces/Stool C. difficile GDH Antigen & Toxins - Final
Negative for toxigenic C.difficile
03/22/25 21:20 Urine Legionella Urinary Antigen - Final
Negative for Legionella pneumophila Serogroup 1 antigen.
A negative result does not rule out the possiblity of
Legionella infection due to other serogroups or species of
Legionella. Clinical correlation is recommended.
03/22/25 21:20 Urine Streptococcus pneumoniae Antigen (M - Final
Negative for Streptococcus pneumoniae antigen.
A negative result does not exclude infection with
Streptococcus pneumoniae. Clinical correlation is
recommended.
--- NOTE | 2025-03-24 08:57 | PTCARENOTE ---
pt received from previous rn- ett to vent- see settings as charted. pt nsr with pvcs on monitor, levophed and vaso continue to maintain map>65. right radial shyla zeroed and functioning. propofol, fentanyl continue for sedation. heparin and bicarb
gtts infusing per order. pt with blood tinged secretions, coarse breath sounds. zaragoza draining myke urine with sediment, rectal trumpet in place. left boot remains on, skin check performed. all safety precautions in place.
[2025-03-24] MEDS: PROTONIX IV 40 MG IV (09:01)
[2025-03-24] MEDS: NSS (PRESERVATIVE FREE) 10 ML IV (09:01)
[2025-03-24] MEDS: MAXIPIME 1000 MG IV ×2 (09:01→22:30)
[2025-03-24] MEDS: STERILE WATER FOR INJECTION 10 ML IV ×2 (09:02→22:30)
--- NOTE | 2025-03-24 09:31 | W.PN.CARDCBS ---
Today's Communication / Plan
-
Troponin peaked would stop trending. Elevation is likely d/t PE and R heart strain.
Impression / Plan
-
Primary Game Technician: none prior to admission
Assessment:
Presentation with SOB, respiratory distress
Acute hypoxic respiratory failure, intubated urgently in ER 03/23/25
Transient loss of pulse requiring CPR, epi
PE, provoked
LLE DVT
Septic shock
Concern for R PNA
R heart strain by echo consistent with PE as above
Elevated troponin
ARF, improving
Shock liver
Fall with L bimalleolar fracture status post repair 02/02/2025
Hypertension
Hyperlipidemia
Dementia
ECHO 03/23/25: EF 65 to 70%, no regional wall motion abnormalities noted, moderately enlarged RV size with moderate hypokinesis of right ventricle, dilated RA, mild TR, PAP 35 mmHg
Plan:
- Patient presents with shortness of breath and respiratory distress requiring urgent intubation in ER, also with transient loss of pulse requiring brief CPR and epi administration. Found to have massive PE and left lower extremity DVT, provoked in
the setting of recent left ankle fracture status postrepair 01/2025.
- Critically ill. He is currently intubated and sedated in the MICU.
- Cardiology consulted as troponin noted to be elevated. Peaked at 10.9. No need to continue trending.
- EKG 03/[address] abnormalities
- TTE here showed R heart strain, but NL LV function and no SWMA.
- Troponin elevation is consistent with nonischemic myocardial injury troponin elevation d/t PE
- Can consider eventual ischemic evaluation as an outpatient pending clinical course
- Prognosis remains guarded
Progress Note - Game Technician
Subjective
Date of Service: March 24, 2025
NAOE. Remains intubated and sedated in the MICU requiring pressor support.
Objective
Labs:
03/24/25 02:06
03/24/25 02:06
Labs
Hgb 10.2 g/dL (13.0-18.0) L 03/24/25 02:06
Hct 29.0 % (39.0-52.0) L 03/24/25 02:06
Plt Count 221 10^3/uL (130-400) D 03/24/25 02:06
PT 16.0 Sec (11.4-14.6) H 03/22/25 20:34
INR 1.25 03/22/25 20:34
APTT 124.0 Sec (23.4-35.0) H 03/24/25 02:06
Sodium 138 mmol/L (135-145) 03/24/25 02:06
Potassium 3.8 mmol/L (3.5-5.1) 03/24/25 02:06
BUN 75 mg/dl (9-20) H 03/24/25 02:06
Creatinine 2.2 mg/dL (0.7-1.3) H 03/24/25 02:06
Glucose 146 mg/dl (70-99) H 03/24/25 02:06
Troponins
03/22/25 03/23/25 03/23/25
20:34 02:45 10:40
Troponin I 0.055 H* 2.680 H* D 9.670 H* D
03/23/25 03/23/25 03/24/25
16:00 16:28 02:06
Troponin I Cancelled 10.900 H* 6.510 H*
Vital Signs and I&O:
Vital Signs
Temp Pulse Resp BP Pulse Ox
99.2 F 71 18 129/67 96
03/24/25 07:57 03/24/25 08:30 03/24/25 08:30 03/23/25 07:45 03/24/25 08:30
Vital Signs
Temp Pulse Resp BP Pulse Ox
99.2 F 71 18 129/67 96
03/24/25 07:57 03/24/25 08:30 03/24/25 08:30 03/23/25 07:45 03/24/25 08:30
Intake & Output
03/22/25 03/23/25 03/24/25 03/25/25
06:59 06:59 06:59 06:59
Intake Total 1577.6 / 1732.0 4418.7 / 4529.2 331.5 / 331.5
Output Total 200 / 200 990 / 1090 140 / 140
Balance 1377.6 / 1532.0 3428.7 / 3439.2 191.5 / 191.5
Physical Exam
Physical Exam
Gen: NAD
HEENT: NC/AT, sclera anicteric
Neck: JVP at 12 cm
CV: RRR, NL s1/s2, no M/R/G
Lungs: Mechanically ventilated
Abd: S/ND
Ext: No LE edema
Skin: Warm, dry.
Neuro: Sedated
[2025-03-24 09:46] LABS: APTT 90.1 Sec (23.4-35.0)
[2025-03-24] MEDS: HEPARIN 25000 UNITS/250 ML IV (11:02)
--- NOTE | 2025-03-24 11:11 | W.PN.ID1 ---
Date of Service
Date of Service: March 24, 2025
Today's Communication
DC Vanco.
Continue cefepime for now.
Assessment / Plan
# Massive/submassive right-sided PE
# Left lower extremity acute DVT, ( recent right ankle ORIF)
# Shock with multisystem organ failure
# Acute hypoxic respiratory failure, intubated
# DU
# Shock liver
# Reactive leukocytosis improving.
# Elevated troponins
- Suspect right lung pulmonary infarct over pneumonia
- sputum culture pending
- blood cultures neg to date
-Ucx neg
-discontinue vancomycin
- Continue cefepime pending sputum cx.
- Continue ICU support
- Prognosis guarded
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
Mild frontotemporal dementia
Hypertension
HLD
Left ankle fracture ORIF February 02, 2025
Chief Complaint
-: Other (PE)
Subjective / Review of Systems
Remains on vent.
Vital Signs / Physical Exam
Vital Signs
Vital Signs
Temp Pulse Resp BP Pulse Ox
99.2 F 77 18 129/67 98
03/24/25 07:57 03/24/25 10:00 03/24/25 10:00 03/23/25 07:45 03/24/25 10:00
Physical Exam
Constitutional: Acutely Ill
Eyes: Sclera Anicteric
Cardiovascular: Regular Rate and S1/S2
Pulmonary: Other (decreased breathe sound right base)
Gastrointestinal: Soft, Non Tender, Non Distended and Normal Bowel Sounds
Genito-Urinary: Negative CVA Tenderness
Extremities: Negative Edema
Objective Data
Lab Data
Lab Results
03/24/25 02:06
03/24/25 02:06
PT 16.0 Sec (11.4-14.6) H 03/22/25 20:34
INR 1.25 03/22/25 20:34
APTT 90.1 Sec (23.4-35.0) H 03/24/25 09:12
Estimated Creat Clear 25 ml/min 03/24/25 02:06
Lactic Acid Cancelled 03/24/25 06:00
Total Bilirubin 0.7 mg/dl (0.2-1.3) 03/24/25 02:06
AST 1133 U/L (17-59) H* 03/24/25 02:06
ALT 1077 U/L (0-50) H* 03/24/25 02:06
Alkaline Phosphatase 103 U/L (38-126) 03/24/25 02:06
Most recent labs reviewed.
Micro Results:
03/23/25 16:45 Respiratory Culture - Pending
Sputum Gram Stain - Preliminary
03/23/25 00:46 Urine Culture - Final
Urine NO GROWTH
03/22/25 23:42 MRSA Screen - Final
Nose No Methicillin Resistant Staphylococcus aureus isolated.
03/23/25 00:03 Blood Culture - Preliminary
Blood/Venous No Growth in 24 hours- Final report to follow
03/22/25 23:57 Blood Culture - Preliminary
Blood/Venous No Growth in 24 hours- Final report to follow
03/22/25 23:42 Nasal Screen MRSA (PCR) - Final
Nose
03/23/25 02:41 C. difficile GDH Antigen & Toxins - Final
Feces/Stool Negative for toxigenic C.difficile
03/22/25 21:20 Legionella Urinary Antigen - Final
Urine Negative for Legionella pneumophila Serogroup 1 antigen.
A negative result does not rule out the possiblity of
Legionella infection due to other serogroups or species of
Legionella. Clinical correlation is recommended.
Streptococcus pneumoniae Antigen (M - Final
Negative for Streptococcus pneumoniae antigen.
A negative result does not exclude infection with
Streptococcus pneumoniae. Clinical correlation is
recommended.
03/22/25 CT Chest: Extensive right-sided pulmonary embolism beginning within the right main pulmonary artery and extending into right upper and lower lobar and segmental pulmonary arteries.
03/23/25 Periph Vas US: There is occlusive and nonocclusive thrombus within the left common femoral and proximal/mid femoral veins.
--- NOTE | 2025-03-24 11:15 | PN.CDI ---
CDI
- -
CDI:
Physician Documentation Request
Admit Date: 03/22/25 22:44
Dear Doctor Bruna,
Please review the following and provide your response in the progress notes.
Clinical Indicators:
- 03/22 ER Physician '
- 03/23 Cardiology 'large pulmonary embolism with RV strain. The right ventricle does have significant hypokinesis'
- 03/24 PN 'Estimated pulmonary artery pressure of 35 mmHg'
- 03/22 CT Chest ' right-sided pulmonary embolism...CT evidence for right heart strain'
Please clarify in the progress notes, the appropriate diagnosis, if significant, that supports the above abnormalities and additional evaluation, monitoring and/or treatment rendered:
Pulmonary embolism with cor pulmonale
Pulmonary embolism without cor pulmonale
Other (please specify)
Use of terms such as suspected, likely, concern for, or probable (associated with a specific diagnosis that is being evaluated, monitored, or treated as if it exists) are acceptable and can be coded in the inpatient setting, when documented at the
time of discharge.
Thank you,
Jerome Dyson RN
CDI Specialist
Please use your independent medical judgment in providing your response.
--- NOTE | 2025-03-24 11:36 | W.PN.NEPH.PH ---
Today's Communication / Plan
-
change to LR, prn lasix
follow labs
Assessment/Plan
-
IMP:
Acute Hypoxic respiratory failure
Acute submassive vs massive R sided Pulmonary embolism, likely provoked from recent ankle surgery
RLL Pneumonia. Possible community acquired
Likely Septic shock.
DU
A gap Metabolic acidosis
Dementia
HTN
HLD
Plan:
A/w acute resp failure from massive PE and also septic shock from PNA
DU-suspect prerenal, non olguric with zaragoza
cr improving with IVF
UA mild microhematuria post zaragoza sample
met acidosis is improving-change to LR
titrate pressors for MAP>65
abx per ICU-dose renally with changing GFR
on heparin gtt for PE
follow LFTs increasing trend-shock liver?
wt is up significantly-concentrate gtts
d/w nursing
-
-
Date of Service: March 24, 2025
CC / HPI / ROS
-
Chief Complaint:
DU
History of Present Illness:
cr improving to 2.2
met acidosis better at 19
non oliguric with zaragoza but wt is up
on pressors for hypotnesion
tropponin and LFTs are elevated
Review of Systems:
remains intubated, off sedation
only opens eyes
Labs
-
Labs:
WBC 11.7 10^3/uL (4.8-10.8) H 03/24/25 02:06
RBC 3.32 10^6/uL (4.70-6.10) L 03/24/25 02:06
Hgb 10.2 g/dL (13.0-18.0) L 03/24/25 02:06
Hct 29.0 % (39.0-52.0) L 03/24/25 02:06
Plt Count 221 10^3/uL (130-400) D 03/24/25 02:06
Sodium 138 mmol/L (135-145) 03/24/25 02:06
Potassium 3.8 mmol/L (3.5-5.1) 03/24/25 02:06
Chloride 113 mmol/L (98-107) H 03/24/25 02:06
Carbon Dioxide 19 mmol/L (22-30) L 03/24/25 02:06
BUN 75 mg/dl (9-20) H 03/24/25 02:06
Creatinine 2.2 mg/dL (0.7-1.3) H 03/24/25 02:06
eGFR 28.81 03/24/25 02:06
Glucose 146 mg/dl (70-99) H 03/24/25 02:06
Calcium 7.6 mg/dl (8.4-10.2) L 03/24/25 02:06
Phosphorus 4.2 mg/dl (2.5-4.5) 03/23/25 05:08
Bmq-W-Vbyfaqktiwz Pept 501 pg/ml 03/22/25 20:34
Albumin 2.4 g/dl (3.5-5.0) L 03/24/25 02:06
Physical Exam
-
Vital Signs:
Vital Signs
Temp Pulse Resp BP Pulse Ox
99.2 F 79 18 129/67 96
03/24/25 07:57 03/24/25 11:31 03/24/25 11:31 03/23/25 07:45 03/24/25 11:31
Cardiovascular:: Regular rate and rhythm
Respiratory:: Bilateral: Coarse
Lung Excursion:: Abnormal
Abdomen:: Nontender and Soft
Zaragoza Catheter: Yes
Other Findings::
left leg in GUIDO arap and boot
trace edema of right leg
[2025-03-24 11:38] LABS: Glucose - Point of Care 144 mg/dl (70-99)
--- NOTE | 2025-03-24 11:47 | PTCARENOTE ---
pt has remained off propofol and fentanyl since 0900, pt opens eyes, does not follow commands. weaning levophed as tolerated. plan of care discussed in rounds. and daughter at bedside and updated. assessment unchanged further.
--- NOTE | 2025-03-24 15:30 | PTCARENOTE ---
left nare dobhoff placed at 65cm, confirmed with xray and auscultation. vaso off, levophed weaned to 4mcg. sedation remains off, pt continues to open eyes but not follow commands.
[2025-03-24 15:55] VITALS: BP 129/55
[2025-03-24 16:05] LABS: APTT 59.6 Sec (23.4-35.0)
--- NOTE | 2025-03-24 16:09 | CM ---
Intubated, now limited DNR and continue current ventilation, IV/Meds. Discharge POC: TBD based on medical progression. ,
[2025-03-24] MEDS: HEPARIN 6800 UNITS IV (16:30)
[2025-03-24 17:40] LABS: Glucose - Point of Care 127 mg/dl (70-99)
[2025-03-24 23:36] LABS: APTT > 200 Sec (23.4-35.0)
[2025-03-25] VITALS (9 sets, daily range): BP systolic 137–162; BP diastolic 75; BMI 29.9
[2025-03-25 00:07] LABS: Glucose - Point of Care 150 mg/dl (70-99)
[2025-03-25] MEDS: NOVOLOG FLEXPEN-LOW RESISTANCE 1 UNITS SC (00:38)
[2025-03-25] MEDS: SUBLIMAZE 50 MCG IV ×2 (03:57→14:21)
[2025-03-25 04:39] LABS: % Basophils 0.2 % (0-2); % Eosinophils 0.3 % (0-6); % Immature Granulocytes 1.4 % (0-0.5); % Lymphocytes 6.8 % (20.5-51.1); % Monocytes 7.3 % (1.7-9.3); Absolute Immature Granulocytes 0.2 10^3/uL (0-0.05); Absolute Lymphocytes 0.8 10^3/uL (1.2-3.4); Absolute Monocytes 0.9 10^3/uL (0.1-0.6); Absolute Neutrophils 10.1 10^3/uL (1.4-6.5); B.E. -1.1 mmol/L; HCO3 21.6 mmol/L (21-28); Hematocrit 26.7 % (39.0-52.0); Hemoglobin 9.3 g/dL (13.0-18.0); Mean Corp Hgb Conc. 34.8 g/dL (33.0-37.0); Mean Platelet Volume 10.2 fL (7.4-10.4); Nucleated Red Blood Cells % 0 % (-); PCO2 29 mmHg (35-48); PO2 121 mmHg (83-108); Platelet Count 207 10^3/uL (130-400); Red Cell Dist. Width 13.4 % (11.5-14.5); pH 7.48 (7.35-7.45)
--- NOTE | 2025-03-25 04:53 | PTCARENOTE ---
1930: Pt's care assumed by this RN. Pt largely unresponsive, eyes open ad maximino and blinks appropriately. Pt tolerating all tubes, lines and drains. electromechanical engineer in place. ETT moved to the left side avoiding PI on the inner lip. Respiratory
assisted adjust thing ETT yañez due to high tension on lip and columella. Skin tear noted on left cheek. LLE boot removed, foot propped with pillows, foam applied to medial foot and upper thigh. Heels elevated with pillows. Rectal tube needless
connector padded with washcloth to prevent PI. Pt is resting comfortably with no visible signs of pain. Monitors in place.
0000: On reassessment, pt had a left sided leg twitch. Pt opened eyes to voice and pain on the left side. When touched on the left lower leg pt responded with facial grimace or muscle twitch. After turning interventions, pt;s pain score returned to
0. Monitoring remains in place
0300:
Pt began with a strong cough. In-line suctioning preformed x3. Pt demonstrated a + gag reflex. After suctioning pt continued to breath over the vent (RR 25) for a short period, resolving on its own. Small LE and mouth movement was noted. Monitor in
place, HOB @ 30deg, bed in lowest position.
[2025-03-25 05:01] LABS: ALT (SGPT) 700 U/L (0-50); AST (SGOT) 391 U/L (17-59); Albumin 2.2 g/dl (3.5-5.0); Alkaline Phosphatase 96 U/L (38-126); Blood Urea Nitrogen 64 mg/dl (9-20); Calcium 7.7 mg/dl (8.4-10.2); Carbon Dioxide 21 mmol/L (22-30); Chloride 114 mmol/L (98-107); Estimated Creatinine Clearance 35 ml/min; Glucose 111 mg/dl (70-99); Magnesium 1.9 mg/dl (1.6-2.3); Potassium 3.8 mmol/L (3.5-5.1); Sodium 140 mmol/L (135-145); Total Bilirubin 0.6 mg/dl (0.2-1.3); Total Protein 4.4 g/dl (6.3-8.2); Triglycerides 114 mg/dl (10-149); eGFR 42.22
[2025-03-25 06:18] LABS: Glucose - Point of Care 106 mg/dl (70-99)
[2025-03-25] MEDS: NOVOLOG FLEXPEN-LOW RESISTANCE SC ×2 (06:28→12:45)
[2025-03-25] MEDS: DUONEB 3 ML INH ×2 (07:22→11:10)
--- NOTE | 2025-03-25 08:00 | W.PN.HOSP.TC ---
Today's Communication/Plan
-
see A/P
Assessment / Plan
Assessment / Plan
HPI: 85-year-old from [facility] with past medical history of hypertension, hyperlipidemia, dementia, 6 weeks status post left ankle surgery, p/w acute respiratory distress and obtundation. Patient has multiorgan dysfunction with hypoxic
respiratory failure, circulatory collapse, pulmonary embolism, pneumonia and renal failure.
History of cough for 2 days MANAGER CREDIT RISK. Suspect sepsis complicated by pulmonary embolism. ECG is nonischemic.
CT PE in the ED revealed:
1. Extensive right-sided pulmonary embolism beginning within the right main pulmonary artery and extending into right upper and lower lobar and segmental pulmonary arteries.
2. CT evidence for right heart strain.
3. Right lower lobe consolidation may reflect atelectasis, pneumonia and/or component of pulmonary infarct.
A/P:
# Acute hypoxic respiratory failure
Intubated,
cont mechanical ventilation per Travel Accommodations Rater , on pressure support weaning trial
off sedation, currently does not follow command
Consider CT head? Travel Accommodations Rater will address
# Acute submassive vs massive R sided Pulmonary embolism, likely provoked from recent L ankle surgery
CT noted RV strain,
Echo with EF 65-70%, and Moderately enlarged right ventricular size with moderate hypokinesis of right ventricle. Dilated right atrium. Estimated pulmonary artery pressure of 35 mmHg
US also revealed occlusive and nonocclusive thrombus within the left common femoral and proximal/mid femoral veins.
Cont heparin gtt
# Elevated trop 2/2 non-MT from acute PE/RV strain vs demand ischemia
# Cardiac arrest POA s/p CPR
Troponin peaked at 10.9 -> 4.6
Echo as above
Card on board
# RLL Pneumonia. Possible community acquired vs aspiration
# Likely Septic shock
Cannot rule out aspiration
blood cultures negative, MRSA screen negative
Urine Legionella/Strep Ag negative
Cont cefepime, off vancomycin
Off pressors Levophed and vasopressin
s/p bicarb drip
Now with dophoff tube with tube feeding
Eventual SPL eval when extubated and able
ID on board
# DU 2/2 Septic shock, likely ATN. Oliguric
# Metabolic acidosis , improving
SCr 4.9-> 1.6 today; baseline 1.0
s/p bicarb drip
zaragoza placed, follow I/O
urine culture no growth
Nephrology on board
# Shocked liver
LFT improving
Cont to monitor
Code Status- Full Code
DVT ppx: heparin drip
GI ppx: IV PPI
DW RN, DW pharmacy
updated daughter on the phone extensively. Answered all questions.
CC time 50 min
Anticipated Discharge: > 48 hours
Subjective/Interval History
-
Date of Service: March 25, 2025
Objective Data
-
Labs:
Laboratory Results
03/24/25 03/25/25 03/25/25
22:39 04:15 07:46
WBC 12.0 H
Hgb 9.3 L
Hct 26.7 L
Plt Count 207
APTT > 200 H* Pending
HCO3 21.6
Sodium 140
Potassium 3.8
Chloride 114 H
Carbon Dioxide 21 L
BUN 64 H
Creatinine 1.6 H
Glucose 111 H
Calcium 7.7 L
Total Bilirubin 0.6
AST 391 H
ALT 700 H*
Alkaline Phosphatase 96
Vital Signs:
Vital Signs
Temp Pulse Resp BP Pulse Ox
36.8 C 99 14 129/55 99
03/25/25 07:48 03/25/25 07:49 03/25/25 07:49 03/24/25 15:55 03/25/25 07:49
I&O
03/24/25 03/25/25 03/26/25
06:59 06:59 06:59
Intake Total 4418.7 / 4529.2 1858.6 / 1858.6
Output Total 990 / 1090 1151 / 1151
Balance 3428.7 / 3439.2 707.6 / 707.6
Review of Systems
-
Unable to obtain full review of systems at this time due to: Acuity and Patient Intubation
Physical Exam
-
General: Well Developed, Well Nourished and Respiratory Distress (intubated )
HEENT: Normocephalic, Atraumatic, Moist Mucous Membranes and Oxygen (intubated )
Respiratory: Clear to Auscultation and Non Labored Respirations; Negative Accessory Resp Muscle Use
Cardiac: Regular Rhythm and S1/S2
GI: Soft, Nontender, Nondistended and Other (Dophoff )
Rectal: Deferred by Provider
Musculoskeletal: No Clubbing, No Cyanosis, No Edema and Other (LLE in splint)
Skin: Negative Rash
Psych: Calm
Data Reviewed
-
CT Scan: Report Reviewed by me
Labs: Labs Reviewed by me
[2025-03-25 08:09] LABS: APTT 60.2 Sec (23.4-35.0)
--- NOTE | 2025-03-25 08:27 | W.PN.INTV ---
Today's Communication / Plan
Recommendations
Patient to be terminally withdrawn today and transition to comfort care measures
Information Technology Officer called
Once family is ready, stop all medications unless tailored for comfort
Given his DU would avoid morphine
Ativan prn for anxiety
Hyoscyamine for excessive secretions
Fentanyl vs Dilaudid for air hunger/SOB
Once patient is terminally extubated and transitioned to comfort care, pulmonary/digital marketing project manager service will sign off. Please call back with any questions or concerns.
Assessment
-
Assessment: 85-year-old male with a past medical history of frontotemporal dementia, hypertension and hyperlipidemia who presented with unresponsiveness. Patient lives in [facility]. In the ER he was short of breath, given nebulizers and
then became obtunded, was emergently intubated, then became bradycardic with loss of pulse. CPR performed immediately, epinephrine + bicarb, calcium given with ROSC obtained. Levophed started as well. CT head obtained showing no acute
intracranial abnormality, and CTA of the chest obtained showing a right sided pulmonary embolism with RV strain, as well as a right lower lobe pneumonia. PERT alert called. Other labs that were significant were metabolic acidosis with serum
bicarbonate level 11, creatinine 4.9 (baseline 0.9), lactate 4.1, troponin 0.055, proBNP 501, pH 7.20, pCO2 32, INR 1.25, Hb 12.4 and WBC 22.3. Given that the patient's pulmonary embolism clot burden was not significant and given his multiorgan
failure with DU, with pneumonia and acidosis, he was not considered a thrombolytic candidate. He was transferred to the ICU for further care and digital marketing project manager services consulted for additional management/recommendations.
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
Impression:
#Acute respiratory failure with hypoxia on mechanical ventilation (intubated 03/18/2025)
#In-hospital cardiac arrest (occurred post-intubation, preceded by bradycardia, with ROSC obtained after epi + bicarb - this was likely PEA as no shock was administered)
#Circulatory shock due to sepsis + acidosis in the setting of a right-sided PE - shock state now resolved
#Acute right-sided PE with RV strain
#Left-sided DVT involving common femoral + proximal/mid femoral veins
#Pulmonary hypertension due to above (possibly in the setting of chronic PH)
#Right lower lobe pneumonia
#DU
#Hematuria - urine is pink-colored as of 03/25/2025
#Anemia
#Hyperglycemia (HbA1c: 6 on 03/23/2025)
#Elevated troponin (likely demand ischemia in the setting of recent CPR)
#Metabolic acidosis with increased anion gap
#Lactic acidosis
#Recent left trimalleolar ankle fracture s/p ORIF, plate and screw fixation, with syndesmotic fixation and stress exam under anesthesia.
Plan:
- Family is ready to transition to comfort care. They would like more time to contact additional family members before we terminally extubate and transition to comfort care measures
- Information Technology Officer called
- Emotional support provided
- Until we terminally extubate, I will start to stop other medications including his heparin drip, and will stop blood draws
- Once family ready to extubate I will give him a dose of fentanyl versus Dilaudid, Ativan and then terminally extubate and then start full comfort care measures
Previously:
- Patient is hypoxic due to multiple factors, including pneumonia, sepsis with acute organ dysfunction and an acute PE
- His pulmonary embolism is of moderate clot burden and is not entirely responsible for his shock state
- This is why he did not go for catheter directed thrombolysis versus embolectomy after his PERT alert on admission
- Heparin drip now stopping as patient is being prepared for terminal extubation this afternoon
- Echo performed on 03/23/2025 shows a moderately enlarged RV with moderate hypokinesis of the RV with a dilated RA, PASP 35 mmHg, and preserved LVEF at 65-70% with no regional WMA
- Lower extremity duplex shows a left-sided DVT involving his common femoral + proximal/mid femoral veins, with no DVT on the right
- Continue with mechanical ventilation with daily SAT/SBT --> plan for terminal extubation this afternoon
- Maintain plateau pressure <30 and titrate FiO2 + PEEP to keep SpO2 >90-94%
- Continue aspiration precautions; keep HOB >30-45�
- prn nebulized bronchodilators - not currently bronchospastic
- Oropharyngeal + deep ETT suctioning with subglottic as needed
- Patient is now off sedation
- Patient was on antibiotics which will be stopped as patient is being prepared for terminal extubation this afternoon
- All cultures have been negative including patient's blood cultures, sputum culture; MRSA screen is negative and urine antigens for Legionella + strep pneumonia both negative
- Maintain MAP>65
- now off vasopressors
- Random cortisol level is 56.3 --> no need for stress dose steroids
- Trend UOP; nephrology on board and recs appreciated
- Stopped trending troponin level as it peaked at 10.9 on 03/23/2025
- Stress ulcer ppx --> this will be stopped as patient is being prepared for terminal extubation this afternoon
- Also stop tube feeds
- Guarded prognosis - previous discussion: The patient's daughter and were updated and all questions were answered. They did say that if the patient were to continue to deteriorate, that they would likely discuss withdrawing care at that time.
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
- As stated above, family is ready to withdraw care and transition to full comfort care measures with terminal extubation. Once patient is terminally extubated, digital marketing project manager has pulmonary service will sign off. Please call back with any questions
or concerns.
Code status: Now to be made DNR/DNI
Data:
CTA Chest 03/22/2025:
1. Extensive right-sided pulmonary embolism beginning within the right main pulmonary artery and extending into right upper and lower lobar and segmental pulmonary arteries.
2. CT evidence for right heart strain.
3. Right lower lobe consolidation may reflect atelectasis, pneumonia and/or component of pulmonary infarct.
Transthoracic echocardiogram 03/23/2025:
Left ventricle is small in size with mild to moderate concentric left
ventricular hypertrophy. Normal left ventricular systolic function. No regional
wall motion abnormalities are seen. LV ejection fraction is 65-70% by Finnegan's
method of discs.
Moderately enlarged right ventricular size with moderate hypokinesis of right
ventricle.
Dilated right atrium.
Mild tricuspid regurgitation. Estimated pulmonary artery pressure of 35 mmHg
assuming a right atrial pressure of 15 mmHg.
Thickened mitral valve leaflets with mild mitral regurgitation.
No prior study available for comparison.
Total time spent today was 43 minutes for this encounter. Time includes reviewing laboratory test/imaging results, reviewing pertinent medical records, obtaining and reviewing medical history, performing an appropriate exam, ordering medications,
tests and procedures. Time also includes documentation of this encounter, coordinating patient care and communicating with other healthcare professionals. Total time does not include separately billed tests performed on this date of service.
Subjective Dataa
Subjective Data
Date of Service:
Date of Service: March 25, 2025
Chief Complaint: Manager Of Photography Follow Up
Subjective:
Patient was seen and evaluated this morning. Not following commands, and remains minimally responsive. Currently on a pressure support wean on 01/31, 40% FiO2 with PIP 12 cmH2O, VTe 300 cc and breathing at 22 breaths/minute. Heart rate 80,
saturating 100%, ETCO2: 25 BP via A-line: 146/48. Levo weaned off this AM.
Review of Systems
General: Unobtainable - Pat Unresp
Objective Data
Data Reviewed
Vital Signs / I&O / Oxygen:
Vital Signs
Temp Pulse Resp BP Pulse Ox
98.2 F 81 18 129/55 99
03/25/25 07:48 03/25/25 08:54 03/25/25 08:54 03/24/25 15:55 03/25/25 08:54
Intake and Output
03/24/25 03/25/25 03/26/25
06:59 06:59 06:59
Intake Total 4418.7 / 4529.2 1858.6 / 1874.1 35.5 / 35.5
Output Total 990 / 1090 1151 / 1191 120 / 120
Balance 3428.7 / 3439.2 707.6 / 683.1 -84.5 / -84.5
SaO2 [A/C] 97
SaO2 99
Physical Exam
General: Respiratory Distress (negative), Comfortable, Chills (negative) and Sweats (negative)
HEENT: Normocephalic, Anicteric and Other (ETT in place)
Cardiovascular: S1-S2 and Peripheral Edema (negative)
Respiratory: Wheeze (negative), Crackles (negative), Rhonchi (negative), Non-Labored Respirations and ET Tube (Mechanical breath sounds heard bilaterally)
GI: Soft, Non Distended, Non Tender and Normal Bowel Sounds
Neurology: Tremors (negative) and Unresponsive
Skin: Warm, Dry, Cyanosis (negative) and Jaundice (negative)
Labs/Micro/Reports
Lab Data
03/25/25 04:15
03/25/25 04:15
Laboratory Results
03/24/25 03/24/25 03/24/25
09:12 15:45 22:39
APTT 90.1 H 59.6 H > 200 H*
pH
pCO2
pO2
HCO3
O2 Delivery Level
03/25/25 03/25/25
04:15 07:46
APTT 60.2 H
pH 7.48 H
pCO2 29 L
pO2 121 H
HCO3 21.6
O2 Delivery Level
Microbiology
03/23/25 00:03 Blood/Venous Blood Culture - Preliminary
No Growth in 48 hours- Final report to follow
03/22/25 23:57 Blood/Venous Blood Culture - Preliminary
No Growth in 48 hours- Final report to follow
03/23/25 16:45 Sputum Respiratory Culture - Preliminary
Usual Respiratory Karla
03/23/25 16:45 Sputum Gram Stain - Preliminary
03/23/25 00:46 Urine Urine Culture - Final
NO GROWTH
03/22/25 23:42 Nose MRSA Screen - Final
No Methicillin Resistant Staphylococcus aureus isolated.
03/22/25 23:42 Nose Nasal Screen MRSA (PCR) - Final
03/23/25 02:41 Feces/Stool C. difficile GDH Antigen & Toxins - Final
Negative for toxigenic C.difficile
03/22/25 21:20 Urine Legionella Urinary Antigen - Final
Negative for Legionella pneumophila Serogroup 1 antigen.
A negative result does not rule out the possiblity of
Legionella infection due to other serogroups or species of
Legionella. Clinical correlation is recommended.
03/22/25 21:20 Urine Streptococcus pneumoniae Antigen (M - Final
Negative for Streptococcus pneumoniae antigen.
A negative result does not exclude infection with
Streptococcus pneumoniae. Clinical correlation is
recommended.
[2025-03-25] MEDS: PROTONIX IV 40 MG IV (08:29)
[2025-03-25] MEDS: NSS (PRESERVATIVE FREE) 10 ML IV (08:29)
[2025-03-25] MEDS: MIRALAX 17 GRAMS TUBE (08:29)
[2025-03-25 09:40] LABS: B.E. -1.3 mmol/L; HCO3 22.4 mmol/L (21-28); PCO2 33 mmHg (35-48); PO2 152 mmHg (83-108); pH 7.44 (7.35-7.45)
[2025-03-25] MEDS: MAXIPIME 1000 MG IV (10:15)
[2025-03-25] MEDS: STERILE WATER FOR INJECTION 10 ML IV (10:16)
--- NOTE | 2025-03-25 12:13 | W.PN.ID1 ---
Date of Service
Date of Service: March 25, 2025
Today's Communication
DC abx and observe.
ID will sign off. Call prn.
Assessment / Plan
# Massive/submassive right-sided PE
# Left lower extremity acute DVT, ( recent right ankle ORIF)
# s/p Shock due to PE with multisystem organ failure
# Acute hypoxic respiratory failure, intubated
# DU improving
# Shock liver improving
# Reactive leukocytosis improving.
# Elevated troponins
-No infection identified
- Suspect right lung pulmonary infarct over pneumonia
- sputum culture: usual resp angel
- blood cultures neg to date
-Ucx neg
- Discontinue cefepime and observe.
ID will sign off. Call prn.
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
Mild frontotemporal dementia
Hypertension
HLD
Left ankle fracture ORIF February 02, 2025
Chief Complaint
-: Other (PE)
Subjective / Review of Systems
Remains on vent.
Vital Signs / Physical Exam
Vital Signs
Vital Signs
Temp Pulse Resp BP Pulse Ox
98.2 F 79 23 137/75 99
03/25/25 07:48 03/25/25 10:30 03/25/25 10:30 03/25/25 07:34 03/25/25 10:30
Physical Exam
Constitutional: Acutely Ill
Cardiovascular: Regular Rate and S1/S2
Pulmonary: Clear (anteriorly)
Gastrointestinal: Soft, Non Tender, Non Distended, Normal Bowel Sounds and Other (FMS loose stool)
Genito-Urinary: Navarro and Hematuria; Negative CVA Tenderness
Extremities: Edema (LLE)
Neurological: Other (unresponsive)
Objective Data
Lab Data
Lab Results
03/25/25 04:15
03/25/25 04:15
PT 16.0 Sec (11.4-14.6) H 03/22/25 20:34
INR 1.25 03/22/25 20:34
APTT 60.2 Sec (23.4-35.0) H 03/25/25 07:46
Estimated Creat Clear 35 ml/min 03/25/25 04:15
Lactic Acid Cancelled 03/25/25 06:00
Total Bilirubin 0.6 mg/dl (0.2-1.3) 03/25/25 04:15
AST 391 U/L (17-59) H 03/25/25 04:15
ALT 700 U/L (0-50) H* 03/25/25 04:15
Alkaline Phosphatase 96 U/L (38-126) 03/25/25 04:15
Most recent labs reviewed.
Micro Results:
03/23/25 16:45 Respiratory Culture - Final
Sputum Usual Respiratory Angel
Gram Stain - Final
03/23/25 00:03 Blood Culture - Preliminary
Blood/Venous No Growth in 48 hours- Final report to follow
03/22/25 23:57 Blood Culture - Preliminary
Blood/Venous No Growth in 48 hours- Final report to follow
03/23/25 00:46 Urine Culture - Final
Urine NO GROWTH
03/22/25 23:42 MRSA Screen - Final
Nose No Methicillin Resistant Staphylococcus aureus isolated.
03/22/25 23:42 Nasal Screen MRSA (PCR) - Final
Nose
03/23/25 02:41 C. difficile GDH Antigen & Toxins - Final
Feces/Stool Negative for toxigenic C.difficile
03/22/25 21:20 Legionella Urinary Antigen - Final
Urine Negative for Legionella pneumophila Serogroup 1 antigen.
A negative result does not rule out the possiblity of
Legionella infection due to other serogroups or species of
Legionella. Clinical correlation is recommended.
Streptococcus pneumoniae Antigen (M - Final
Negative for Streptococcus pneumoniae antigen.
A negative result does not exclude infection with
Streptococcus pneumoniae. Clinical correlation is
recommended.
03/22/25 CT Chest: Extensive right-sided pulmonary embolism beginning within the right main pulmonary artery and extending into right upper and lower lobar and segmental pulmonary arteries.
03/23/25 Periph Vasc US: There is occlusive and nonocclusive thrombus within the left common femoral and proximal/mid femoral veins.
--- NOTE | 2025-03-25 12:20 | W.PN.UPDATE ---
Update Note
Progress Note Update
Discussed patient's clinical status with the family ( and daughter). They do not want Stalin to be suffering anymore. They discussed transitioning to comfort care and we answered all the questions. They would like some time to make phone
calls with other family members before we terminally extubate. Plan to withdraw care later this afternoon. Primary hospitalist made aware. Orders will be adjusted to prepare for transition to comfort care.
--- NOTE | 2025-03-25 12:49 | W.PN.NEPH.PH ---
Today's Communication / Plan
-
Supportive care
Assessment/Plan
-
IMP:
Acute Hypoxic respiratory failure
Acute submassive vs massive R sided Pulmonary embolism, likely provoked from recent ankle surgery
RLL Pneumonia. Possible community acquired
Likely Septic shock.
DU
A gap Metabolic acidosis
Dementia
HTN
HLD
Plan:
A/w acute resp failure from massive PE and also septic shock from PNA
DU-suspect prerenal, non olguric with zaragoza
UA mild microhematuria post zaragoza sample
on heparin gtt for PE
Pressor support
Continue supportive care
Consider diuretics next 24
Family considering comfort care
Creatinine peaked 4.9 improved to 1.6
33 minutes critical care time
-
-
Date of Service: March 25, 2025
CC / HPI / ROS
-
Chief Complaint:
DU
History of Present Illness:
cr improving to 2.2
met acidosis better at 19
non oliguric with zaragoza but wt is up
on pressors for hypotnesion
tropponin and LFTs are elevated
Review of Systems:
remains intubated, off sedation
only opens eyes
Labs
-
Labs:
WBC 12.0 10^3/uL (4.8-10.8) H 03/25/25 04:15
RBC 3.00 10^6/uL (4.70-6.10) L 03/25/25 04:15
Hgb 9.3 g/dL (13.0-18.0) L 03/25/25 04:15
Hct 26.7 % (39.0-52.0) L 03/25/25 04:15
Plt Count 207 10^3/uL (130-400) 03/25/25 04:15
Sodium 140 mmol/L (135-145) 03/25/25 04:15
Potassium 3.8 mmol/L (3.5-5.1) 03/25/25 04:15
Chloride 114 mmol/L (98-107) H 03/25/25 04:15
Carbon Dioxide 21 mmol/L (22-30) L 03/25/25 04:15
BUN 64 mg/dl (9-20) H 03/25/25 04:15
Creatinine 1.6 mg/dL (0.7-1.3) H 03/25/25 04:15
eGFR 42.22 03/25/25 04:15
Glucose 111 mg/dl (70-99) H 03/25/25 04:15
Calcium 7.7 mg/dl (8.4-10.2) L 03/25/25 04:15
Phosphorus 4.2 mg/dl (2.5-4.5) 03/23/25 05:08
Ske-M-Qyplauherec Pept 501 pg/ml 03/22/25 20:34
Albumin 2.2 g/dl (3.5-5.0) L 03/25/25 04:15
Physical Exam
-
Vital Signs:
Vital Signs
Temp Pulse Resp BP Pulse Ox
98.2 F 79 23 137/75 99
03/25/25 07:48 03/25/25 10:30 03/25/25 10:30 03/25/25 07:34 03/25/25 10:30
--- NOTE | 2025-03-25 13:39 | W.PN.CARDCBS ---
Today's Communication / Plan
-
GOC
Impression / Plan
-
Primary Building Equipment Operator: none prior to admission
Assessment:
Presentation with SOB, respiratory distress
Acute hypoxic respiratory failure, intubated urgently in ER 03/23/25
Transient loss of pulse requiring CPR, epi
PE, provoked
LLE DVT
Septic shock
Concern for R PNA
R heart strain by echo consistent with PE as above
Elevated troponin
ARF, improving
Shock liver
Fall with L bimalleolar fracture status post repair 02/02/2025
Hypertension
Hyperlipidemia
Dementia
ECHO 03/23/25: EF 65 to 70%, no regional wall motion abnormalities noted, moderately enlarged RV size with moderate hypokinesis of right ventricle, dilated RA, mild TR, PAP 35 mmHg
Plan:
- Patient presents with shortness of breath and respiratory distress requiring urgent intubation in ER, also with transient loss of pulse requiring brief CPR and epi administration. Found to have massive PE and left lower extremity DVT, provoked in
the setting of recent left ankle fracture status postrepair 01/2025.
- Critically ill. He is currently intubated in the MICU.
- Cardiology consulted as troponin noted to be elevated. Peaked at 10.9. No need to continue trending.
- EKG 03/[address] abnormalities
- TTE here showed R heart strain, but NL LV function and no SWMA.
- Troponin elevation is consistent with nonischemic myocardial injury troponin elevation d/t PE
Prognosis remains guarded. Spoke with patient's and daughter at bedside this morning and it sounds like they are leaning towards comfort care.
We will follow peripherally, please recall as needed
Progress Note - Building Equipment Operator
Subjective
Date of Service: March 25, 2025
No acute overnight events. Remains intubated in the medical ICU. They tell me sedation has been weaned off but patient is not making purposeful movements.
Objective
Labs:
03/25/25 04:15
03/25/25 04:15
Labs
Hgb 9.3 g/dL (13.0-18.0) L 03/25/25 04:15
Hct 26.7 % (39.0-52.0) L 03/25/25 04:15
Plt Count 207 10^3/uL (130-400) 03/25/25 04:15
PT 16.0 Sec (11.4-14.6) H 03/22/25 20:34
INR 1.25 03/22/25 20:34
APTT Cancelled 03/25/25 14:12
Sodium 140 mmol/L (135-145) 03/25/25 04:15
Potassium 3.8 mmol/L (3.5-5.1) 03/25/25 04:15
BUN 64 mg/dl (9-20) H 03/25/25 04:15
Creatinine 1.6 mg/dL (0.7-1.3) H 03/25/25 04:15
Glucose 111 mg/dl (70-99) H 03/25/25 04:15
Troponins
03/22/25 03/23/25 03/23/25
20:34 02:45 10:40
Troponin I 0.055 H* 2.680 H* D 9.670 H* D
03/23/25 03/23/25 03/24/25
16:00 16:28 02:06
Troponin I Cancelled 10.900 H* 6.510 H*
03/24/25
09:12
Troponin I 4.620 H* D
Vital Signs and I&O:
Vital Signs
Temp Pulse Resp BP Pulse Ox
98.2 F 79 23 137/75 99
03/25/25 07:48 03/25/25 10:30 03/25/25 10:30 03/25/25 07:34 03/25/25 10:30
Vital Signs
Temp Pulse Resp BP Pulse Ox
98.2 F 79 23 137/75 99
03/25/25 07:48 03/25/25 10:30 03/25/25 10:30 03/25/25 07:34 03/25/25 10:30
Intake & Output
03/23/25 03/24/25 03/25/25 03/26/25
06:59 06:59 06:59 06:59
Intake Total 1577.6 / 1732.0 4418.7 / 4529.2 1858.6 / 1874.1 55.5 / 55.5
Output Total 200 / 200 990 / 1090 1151 / 1191 205 / 205
Balance 1377.6 / 1532.0 3428.7 / 3439.2 707.6 / 683.1 -149.5 / -149.5
Physical Exam
Physical Exam
Gen: NAD
HEENT: NC/AT, sclera anicteric
Neck: No JVD
CV: RRR, NL s1/s2
Lungs: Mechanically ventilated
Abd: S/ND
Ext: No LE edema
Skin: Warm, dry.
[2025-03-25] MEDS: ATIVAN 1 MG TUBE (14:21)
--- NOTE | 2025-03-25 14:50 | RESPNOTE ---
1438 patient extubated without incident for comfort care.
--- NOTE | 2025-03-25 14:54 | CM ---
For terminal extubation this afternoon and transition to comfort measures.
[2025-03-25] MEDS: DILAUDID 0.5 MG IV ×3 (15:26→19:37)
[2025-03-25] MEDS: ZOFRAN 4 MG IV (15:26)
[2025-03-25] MEDS: ROBINUL 0.2 MG IV (16:20)
[2025-03-25] MEDS: VALIUM INJECTION 2 MG IV (17:49)
--- NOTE | 2025-03-25 18:29 | PTCARENOTE ---
7A-7P Shift Note:
07:30, Received patient A&Ox0, only responded to pain stimuli, no purposeful movements, ET to vent on FiO2 40%, SR w/ 1st AVB, weaned off Levophed with MAP sustained greater than 65, heparin drip @8mL/hr, left nare small bore feeding tube infusing
osmolite @40mL/hr, rectal trumpet in place, zaragoza draining blood tinged urine since yesterday.
08:20, PTT resulted subtherapeutic. Per Hospitalist Dr. Mcfarland, don't give bolus unit. Pharmacy readjusted the dosage. Dr. Mcfarland updated family on patient's prognosis and outcome over the phone.
11:30, During rounds, Art Professor discussed patient's outcome and plan of care. Family agreed to withdraw and transition to comfort care.
14:35, Patient terminally extubated, discontinued arterial line, small bore feeding tube, rectal trumpet. Zaragoza kept for comfort care.
16:00, Reassessed the patient, remained on comfort care, PRN meds administered per order.
--- NOTE | 2025-03-25 19:30 | PTCARENOTE ---
rec`d pt at 1900 unresponsive on comfort care. assessment as documented. pain meds given to comfort. family at bedside.
[2025-03-25] MEDS: LEVSIN ORAL DROPS 0.125 MG SL (20:13)
--- NOTE | 2025-03-25 20:46 | W.PN.DEATH ---
Pronouncement of
-
Called to see patient to pronounce.
No spontaneous heart tones or respirations noted.
Patient not responsive to verbal stimuli.
Patient is pronounced .
Time of : 20:46
Date of : 03/25/25
Cause of : acute hypoxemic respiratory failure, pulmonary embolism
Family Notified: Yes (family at bedside at time of , and daughter)
--- NOTE | 2025-03-25 22:20 | PTCARENOTE ---
pt , GOL notified and pt is not a candidate. family at bedside.
--- NOTE | 2025-03-28 08:57 | CM ---
Patient on 03/25/25 @ 20:46
== END 2025-03-25 23:51 | disposition expired | DRG 871 ==
LOC: ICU 22:44
PROVIDERS: Nurse Practitioner Family; Nurse Practitioner Primary Care; ADMITTING PHYSICIAN Internal Medicine; ATTENDING PHYSICIAN Internal Medicine; CONSULT PHYSICIAN Internal Medicine Cardiovascular Disease; CONSULT PHYSICIAN Internal Medicine Critical Care Medicine; CONSULT PHYSICIAN Internal Medicine Infectious Disease; EMERGENCY PHYSICIAN Emergency Medicine; FAMILY PHYSICIAN Family Medicine; OTHER PHYSICIAN Internal Medicine
PROC: 5A1945Z Respiratory Ventilation, 24-96 Consecutive Hours (ICD-10-PCS; 2025-03-22)
DX: A41.9 Sepsis, unspecified organism (principal); I26.09 Other pulmonary embolism with acute cor pulmonale; J96.01 Acute respiratory failure with hypoxia; I26.99 Other pulmonary embolism without acute cor pulmonale; J18.9 Pneumonia, unspecified organism; N17.0 Acute kidney failure with tubular necrosis; R65.21 Severe sepsis with septic shock; K72.00 Acute and subacute hepatic failure without coma; E87.4 Mixed disorder of acid-base balance; I5A Non-ischemic myocardial injury (non-traumatic); I24.89 Other forms of acute ischemic heart disease; I82.402 Acute embolism and thrombosis of unspecified deep veins of left lower extremity; I10 Essential (primary) hypertension; E78.00 Pure hypercholesterolemia, unspecified; I46.9 Cardiac arrest, cause unspecified; D64.9 Anemia, unspecified; E55.9 Vitamin D deficiency, unspecified; I27.20 Pulmonary hypertension, unspecified; Z79.899 Other long term (current) drug therapy; Z86.718 Personal history of other venous thrombosis and embolism
CPT/HCPCS: 31500; 36600; 51702; 70450; 71045; 71275; 73600; 74018; 80048; 80053; 80061; 80202; 81003; 81015; 82330; 82533; 82570; 82805; 82962; 83036; 83605; 83735; 83880; 84100; 84132; 84300; 84302; 84443; 84478; 84484; 85025; 85610; 85730; 87040; 87070; 87086; 87205; 87324; 87449; 87641; 87899; 93005; 93306; 93970; 94002; 94003; 94640; 96365; 96366; 96367; 96375; 99291; Q9967